=== PATIENT | male | born 1950 | race Caucasian/White ===

== ENCOUNTER 2017-01-10 12:34 | Inpatient (IN) | payer MEDICARE, OTHER ==
[2017-01-10] MEDS ORDERED: SODIUM CHLORIDE 0.9% 1,000 ML IV STA (13:16)
[2017-01-10 13:37] LABS: Basophils % (A) 1 %; CH 34.6; CHCM 34.4; Eosinophils % (A) 0 %; HCT 50.7 % (39.0-53.0); HDW 2.53; HGB 17.1 gm/dL (13.0-17.5); Luc # (Auto) 0.26; Luc % (Auto) 4; Lymphocytes # (A) 0.6 k/uL (1.0-4.8); Lymphocytes % (A) 8 %; MCH 34.1 pg (25.0-35.0); MCHC 33.7 g/dL (31.0-37.0); MCV 101.3 fL (80.0-100.0); Macrocytosis Slight; Mean Platelet Volume 8.6; Monocytes # (A) 0.5 k/uL (0-1.0); Monocytes % (A) 6 %; Neutrophils # (A) 6.1 k/uL (1.3-7.7); Neutrophils % (A) 82 %; RDW 13.7 % (11.5-15.5); WBC 7.5 k/uL (3.8-10.6); WBC (Perox) 7.75
[2017-01-10] MEDS: DILTIAZEM 125 MG in SODIUM CHLORIDE 0.9% 100 ML IV STA (13:43)
--- NOTE | 2017-01-10 13:43 | XR ---
EXAMINATION TYPE: XR chest 2V DATE OF EXAM: 01/10/2017 1:39 PM COMPARISON: NONE HISTORY: Shortness of breath TECHNIQUE: Frontal and lateral views of the chest are obtained. FINDINGS: Scattered senescent parenchymal changes noted. Hyperinflation compatible with COPD. No evidence for infiltrate. No evidence for atelectasis. Heart size is stable. Mediastinal structures are stable and grossly unremarkable. No evidence for hilar prominence. Degenerative changes dorsal spine. IMPRESSION: 1. No evidence for acute pulmonary disease.
[2017-01-10 13:44] LABS: INR 1.1 (<1.1); Partial Thromboplastin Time 26.7 sec (22.0-30.0); Prothrombin Time 10.7 sec (9.0-12.0)
[2017-01-10 13:48] LABS: ALT 28 U/L (21-72); AST 39 U/L (17-59); Alkaline Phosphatase 61 U/L (38-126); Anion Gap 12 mmol/L; Blood Urea Nitrogen 18 mg/dL (9-20); Calcium 9.6 mg/dL (8.4-10.2); Carbon Dioxide 23 mmol/L (22-30); Chloride 104 mmol/L (98-107); Glucose 88 mg/dL (74-99); Non-African American GFR(MDRD) >60 (>60 ml/min/1.73 sqM); Potassium 4.5 mmol/L (3.5-5.1); Sodium 139 mmol/L (137-145); Total Bilirubin 0.9 mg/dL (0.2-1.3); Total Protein 7.4 g/dL (6.3-8.2)
[2017-01-10 13:59] LABS: Creatine Kinase 174 U/L (55-170)
[2017-01-10 14:11] LABS: Creatine Kinase MB 3.3 ng/mL (0.0-2.4); Troponin I <0.012 ng/mL (0.000-0.034)
[2017-01-10] MEDS ORDERED: ENOXAPARIN 100 MG/ML SYRINGE SQ STA (15:46)
--- NOTE | 2017-01-10 17:08 | ED ---
Arrhythmia/Palpitations HPI - General Chief Complaint: Arrhythmia/Palpitations Stated Complaint: Cardiac symtoms Time Seen by Provider: 01/10/17 12:57 Source: patient Mode of arrival: EMS Limitations: no limitations - History of Present Illness Initial Comments: Patient was all set to see her cashier greeter today for some ophthalmic surgery , right before the surgery they noticed on the EKG the patient had atrial fibrillation now with the rapid ventricular rate and they postpone the surgery and Center for further evaluation to the ER patient denies any chest pain does complain about the pelvic palpitation denies any pleuritic chest pain no fever no chills no cough he is nauseous but not been any phlegm he denies any signs of TIA or CVA - Related Data Home Medications Medication Instructions Recorded Confirmed Albuterol Sulfate [Ventolin HFA] 2 puff INHALATION RT-Q6H PRN 01/10/17 01/10/17 Celecoxib [Celecoxib] 200 mg PO DAILY 01/10/17 01/10/17 Fluticasone Nasal [place] [Flonase 2 spr EA NOSTRIL DAILY PRN 01/10/17 01/10/17 Nasal [place]] Hydrocodone/Acetaminophen 1 tab PO TID PRN 01/10/17 01/10/17 [Hydrocodon-Acetaminophn 10-325] Levothyroxine Sodium [Synthroid] 25 mcg PO DAILY 01/10/17 01/10/17 Loratadine [Loratadine] 10 mg PO DAILY PRN 01/10/17 01/10/17 Spironolactone 50 mg PO DAILY 01/10/17 01/10/17 amLODIPine BESYLATE [Amlodipine 10 mg PO DAILY 01/10/17 01/10/17 Besylate] Allergies Allergy/AdvReac Type Severity Reaction Status Date / Time No Known Allergies Allergy Verified 01/10/17 12:56 Review of Systems ROS Statement: Those systems with pertinent positive or pertinent negative responses have been documented in the HPI. ROS Other: All systems not noted in ROS Statement are negative. Past Medical History Past Medical History: Hypertension, Thyroid Disorder Additional Past Medical History / Comment(s): hepatitis C History of Any Multi-Drug Resistant Organisms: MRSA Date of last positivie culture/infection: 2009 MDRO Source:: arm Past Surgical History: Orthopedic Surgery Past Psychological History: No Psychological Hx Reported Smoking Status: Current every day smoker Past Alcohol Use History: Daily Past Drug Use History: None Reported General Exam - General Exam Comments Initial Comments: General: The patient is awake and alert, in no distress, and does not appear acutely ill. Skin: Skin is warm and dry and no rashes or lesions are noted. Eye: Pupils are equal, round and reactive to light, extra-ocular movements are intact; there is normal conjunctiva bilaterally. Ears, nose, mouth and throat: There are moist mucous membranes and no oral lesions. Neck: The neck is supple, there is no tenderness or JVD. Cardiovascular: Noticed atrial fibrillation Respiratory: To auscultation bilateral, no wheezing no rhonchi no distress respiratory bach noticed Gastrointestinal: Soft, non-distended, non-tender abdomen without masses or organomegaly noted. There is no rebound or guarding present. Bowel sounds are unremarkable. Back: There is no tenderness to palpation in the midline. There is no obvious deformity. Musculoskeletal: Normal ROM, no tenderness, There is no pedal edema. There is no calf tenderness or swelling. No cords were appreciated. Neurological: CN II-XII intact, Cranial nerves III through XII are intact. There are no obvious motor or sensory deficits. Coordination appears grossly intact. Speech is normal. Psychiatric: Cooperative, appropriate mood & affect, normal judgment. Limitations: no limitations Course Vital Signs 01/10/17 01/10/17 01/10/17 12:51 13:50 14:29 Temperature 98 F Pulse Rate 114 H 126 H 108 H Respiratory 18 18 20 Rate Blood Pressure 148/74 126/75 119/84 O2 Sat by Pulse 98 97 96 Oximetry 01/10/17 01/10/17 01/10/17 15:13 15:54 16:46 Temperature 97.8 F Pulse Rate 103 H 93 98 Respiratory 16 16 16 Rate Blood Pressure 120/62 110/63 134/69 O2 Sat by Pulse 95 98 97 Oximetry EKG Findings - EKG Comments: EKG Findings:: EKG is a defibrillation with a ventricular rate of 160 [place] interval, QRS duration is 74 QT/QTc is 42/475 devious this EKG is shows a rapid ventricular response no ST elevation or ST depression noticed a couple areas of syncope cc Medical Decision Making - Lab Data Result diagrams: 01/10/17 12:53 01/10/17 12:53 Lab Results 01/10/17 01/10/17 01/10/17 Range/Units 12:53 12:53 12:53 WBC 7.5 (3.8-10.6) k/uL RBC 5.00 (4.30-5.90) m/uL Hgb 17.1 (13.0-17.5) gm/dL Hct 50.7 (39.0-53.0) % MCV 101.3 H (80.0-100.0) fL MCH 34.1 (25.0-35.0) pg MCHC 33.7 (31.0-37.0) g/dL RDW 13.7 (11.5-15.5) % Plt Count 146 L (150-450) k/uL Neutrophils % 82 % Lymphocytes % 8 % Monocytes % 6 % Eosinophils % 0 % Basophils % 1 % Neutrophils # 6.1 (1.3-7.7) k/uL Lymphocytes # 0.6 L (1.0-4.8) k/uL Monocytes # 0.5 (0-1.0) k/uL Eosinophils # 0.0 (0-0.7) k/uL Basophils # 0.0 (0-0.2) k/uL Macrocytosis Slight PT (9.0-12.0) sec INR (<1.1) APTT (22.0-30.0) sec Sodium 139 (137-145) mmol/L Potassium 4.5 (3.5-5.1) mmol/L Chloride 104 (98-107) mmol/L Carbon Dioxide 23 (22-30) mmol/L Anion Gap 12 mmol/L BUN 18 (9-20) mg/dL Creatinine 0.80 (0.66-1.25) mg/dL Est GFR (MDRD) Af Amer >60 (>60 ml/min/1.73 sqM) Est GFR (MDRD) Non-Af >60 (>60 ml/min/1.73 sqM) Glucose 88 (74-99) mg/dL Calcium 9.6 (8.4-10.2) mg/dL Magnesium 2.0 (1.6-2.3) mg/dL Total Bilirubin 0.9 (0.2-1.3) mg/dL AST 39 (17-59) U/L ALT 28 (21-72) U/L Alkaline Phosphatase 61 (38-126) U/L Total Creatine Kinase 174 H (55-170) U/L CK-MB (CK-2) 3.3 H* (0.0-2.4) ng/mL CK-MB (CK-2) Rel Index 1.9 Troponin I <0.012 (0.000-0.034) ng/mL Total Protein 7.4 (6.3-8.2) g/dL Albumin 4.3 (3.5-5.0) g/dL TSH 2.380 (0.465-4.680) mIU/L 01/10/17 Range/Units 12:53 WBC (3.8-10.6) k/uL RBC (4.30-5.90) m/uL Hgb (13.0-17.5) gm/dL Hct (39.0-53.0) % MCV (80.0-100.0) fL MCH (25.0-35.0) pg MCHC (31.0-37.0) g/dL RDW (11.5-15.5) % Plt Count (150-450) k/uL Neutrophils % % Lymphocytes % % Monocytes % % Eosinophils % % Basophils % % Neutrophils # (1.3-7.7) k/uL Lymphocytes # (1.0-4.8) k/uL Monocytes # (0-1.0) k/uL Eosinophils # (0-0.7) k/uL Basophils # (0-0.2) k/uL Macrocytosis PT 10.7 (9.0-12.0) sec INR 1.1 (<1.1) APTT 26.7 (22.0-30.0) sec Sodium (137-145) mmol/L Potassium (3.5-5.1) mmol/L Chloride (98-107) mmol/L Carbon Dioxide (22-30) mmol/L Anion Gap mmol/L BUN (9-20) mg/dL Creatinine (0.66-1.25) mg/dL Est GFR (MDRD) Af Amer (>60 ml/min/1.73 sqM) Est GFR (MDRD) Non-Af (>60 ml/min/1.73 sqM) Glucose (74-99) mg/dL Calcium (8.4-10.2) mg/dL Magnesium (1.6-2.3) mg/dL Total Bilirubin (0.2-1.3) mg/dL AST (17-59) U/L ALT (21-72) U/L Alkaline Phosphatase (38-126) U/L Total Creatine Kinase (55-170) U/L CK-MB (CK-2) (0.0-2.4) ng/mL CK-MB (CK-2) Rel Index Troponin I (0.000-0.034) ng/mL Total Protein (6.3-8.2) g/dL Albumin (3.5-5.0) g/dL TSH (0.465-4.680) mIU/L Disposition Clinical Impression: New onset atrial fibrillation Disposition: ADMITTED IP TO THIS HOSP
[2017-01-10] MEDS ORDERED: NITROGLYCERIN SL TABS 0.4 MG TAB SUBLINGUAL PRN (17:11)
[2017-01-10] MEDS ORDERED: MORPHINE SULFATE 2 MG/ML SYRINGE IVP PRN (17:11)
[2017-01-10] MEDS ORDERED: FLUTICASONE 50MCG/SPRAY NASAL 16GM EA NOSTRIL PRN (17:16)
[2017-01-10] MEDS ORDERED: LORATADINE 10 MG TAB PO PRN (17:16)
[2017-01-10] MEDS ORDERED: ALBUTEROL NEBULIZED 2.5 MG/3 ML INHALATION PRN (17:16)
[2017-01-10] MEDS ORDERED: METOPROLOL TARTRATE 50 MG TAB PO STA (17:17)
[2017-01-10] MEDS ORDERED: METOPROLOL TARTRATE 50 MG TAB PO ONE (17:45)
[2017-01-10 18:43] VITALS: RESP 16
[2017-01-10 19:32] LABS: Creatine Kinase 161 U/L (55-170)
[2017-01-10] MEDS ORDERED: TEMAZEPAM 15 MG CAP PO PRN (19:40)
[2017-01-10] MEDS ORDERED: LORazepam 0.5 MG TAB PO PRN (19:40)
[2017-01-10 19:45] LABS: Troponin I <0.012 ng/mL (0.000-0.034)
[2017-01-10] MEDS: HYDROcodone/APAP 10-325MG 1 EACH TAB PO PRN (19:51)
[2017-01-10 20:01] LABS: Creatine Kinase MB 2.5 ng/mL (0.0-2.4)
[2017-01-10 20:29] LABS: Appearance,Urine Clear (Clear); Bilirubin,Urine Negative (Negative); Glucose,Urine (UA) Negative (Negative); Ketones,Urine Negative (Negative); Leukocyte Esterase,Urine Negative (Negative); Mucus,Urine Rare /hpf; Nitrite,Urine Negative (Negative); Particle Count 1484; Protein,Urine Negative (Negative); RBC,Urine 7 /hpf (0-5); Specific Gravity,Urine 1.017 (1.001-1.035); Squamous Epithelial Cell,Urine <1 /hpf (0-4); UA Billing (MACRO vs. MICRO) MICRO; WBC,Urine 3 /hpf (0-5)
[2017-01-11 01:51] LABS: Creatine Kinase 199 U/L (55-170)
[2017-01-11 02:07] LABS: Troponin I <0.012 ng/mL (0.000-0.034)
[2017-01-11 02:10] LABS: Creatine Kinase MB 2.6 ng/mL (0.0-2.4)
[2017-01-11] MEDS: HYDROcodone/APAP 10-325MG 1 EACH TAB PO PRN (03:47)
[2017-01-11] MEDS ORDERED: LEVOTHYROXINE 25 MCG TAB PO SCH (06:30)
[2017-01-11 06:44] LABS: Basophils # (A) 0.1 k/uL (0-0.2); Basophils % (A) 1 %; CH 34.5; Eosinophils # (A) 0.1 k/uL (0-0.7); Eosinophils % (A) 1 %; HCT 45.5 % (39.0-53.0); HDW 2.49; Luc # (Auto) 0.19; Luc % (Auto) 3; Lymphocytes # (A) 0.9 k/uL (1.0-4.8); Lymphocytes % (A) 14 %; MCH 33.5 pg (25.0-35.0); MCHC 32.9 g/dL (31.0-37.0); MCV 101.8 fL (80.0-100.0); Macrocytosis Slight; Mean Platelet Volume 8.1; Monocytes # (A) 0.5 k/uL (0-1.0); Monocytes % (A) 8 %; Neutrophils # (A) 4.8 k/uL (1.3-7.7); Neutrophils % (A) 74 %; RBC 4.48 m/uL (4.30-5.90); RDW 13.9 % (11.5-15.5); WBC 6.6 k/uL (3.8-10.6); WBC (Perox) 6.37
[2017-01-11 07:01] LABS: Anion Gap 9 mmol/L; Blood Urea Nitrogen 26 mg/dL (9-20); Calcium 9.2 mg/dL (8.4-10.2); Carbon Dioxide 21 mmol/L (22-30); Chloride 106 mmol/L (98-107); Cholesterol 180 mg/dL (<200); Glucose 87 mg/dL (74-99); HDL Cholesterol 94 mg/dL (40-60); Non-African American GFR(MDRD) >60 (>60 ml/min/1.73 sqM); Potassium 4.5 mmol/L (3.5-5.1); Sodium 136 mmol/L (137-145); Triglycerides 77 mg/dL (<150)
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
[2017-01-11] MEDS ORDERED: METOPROLOL TARTRATE 50 MG TAB PO SCH (09:00)
[2017-01-11] MEDS ORDERED: ASPIRIN 325 MG TAB PO SCH (09:00)
[2017-01-11] MEDS ORDERED: SPIRONOLACTONE 25 MG TAB PO SCH (09:00)
[2017-01-11] MEDS ORDERED: ENOXAPARIN 100 MG/ML SYRINGE SQ SCH (09:00)
[2017-01-11] MEDS: DILTIAZEM 125 MG in SODIUM CHLORIDE 0.9% 100 ML IV STA (12:02)
--- NOTE | 2017-01-11 13:49 | ECHOF ---
Referral Reason:Rule out wall motion abnormality MEASUREMENTS -------- HEIGHT: 188.0 cm WEIGHT: 135.2 kg BP: 107/61 RVIDd: 3.5 cm (< 3.3) IVSd: 1.0 cm (0.6 - 1.1) LVIDd: 4.0 cm (3.9 - 5.3) LVPWd: 1.2 cm (0.6 - 1.1) IVSs: 2.1 cm LVIDs: 2.8 cm LVPWs: 1.9 cm LA Diam: 3.3 cm (2.7 - 3.8) LAESV Index (A-L): 15.39 ml/m Ao Diam: 3.5 cm (2.0 - 3.7) AV Cusp: 2.1 cm (1.5 - 2.6) LA Diam: 3.2 cm (2.7 - 3.8) MV EXCURSION: 15.249 mm (> 18.000) MV EF SLOPE: 111 mm/s (70 - 150) EPSS: 0.8 cm RAP: 5.00 mmHg RVSP: 21.84 mmHg FINDINGS -------- Atrial fibrillation. This was a technically difficult study with suboptimal views. The left ventricular size is normal. Left ventricular wall thickness is normal. Overall left ventricular systolic function is low-normal with, an EF between 50 - 55 %. The right ventricle is mildly enlarged. Normal LA size by volume 22+/-6 ml/m2. The right atrium was not well visualized. 1.5mg of Definity was utilized for enhancement of images The aortic valve was not well visualized. The mitral valve was not well visualized. Mild mitral regurgitation is present. The tricuspid valve was not well visualized. Mild tricuspid regurgitation present. Right ventricular systolic pressure is normal at < 35 mmHg. The pulmonic valve was not well visualized. The aortic root size is normal. The inferior vena cava is mildly dilated. There is no pericardial effusion. CONCLUSIONS -------- 1. Atrial fibrillation. 2. Mild mitral regurgitation is present. 3. Mild tricuspid regurgitation present. 4. Right ventricular systolic pressure is normal at < 35 mmHg. 5. The pulmonic valve was not well visualized. 6. The aortic root size is normal. 7. The inferior vena cava is mildly dilated. 8. There is no pericardial effusion. 9. This was a technically difficult study with suboptimal views. 10. Left ventricular wall thickness is normal. 11. Overall left ventricular systolic function is low-normal with, an EF between 50 - 55 %. 12. The right ventricle is mildly enlarged. 13. Normal LA size by volume 22+/-6 ml/m2. 14. The right atrium was not well visualized. 15. 1.5mg of Definity was utilized for enhancement of images 16. The aortic valve was not well visualized. STUDY MANAGER: Gumaro Peguero RDCS
[2017-01-11 15:34] VITALS: BP 124/86; PULSE 71; TEMP 97.1
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
--- NOTE | 2017-01-11 19:37 | CONS ---
DATE OF CONSULTATION: 66-year-old gentleman Admitted to the hospital by Dr. Garcia. Consultation requested by Dr. Garcia. Patient admitted to the hospital with atrial fibrillation with fast ventricular rates. HISTORY OF PRESENT ILLNESS: Mr. Isaiah Styles is a known patient of hypertension, and history of DJD, history of hypothyroidism, history of hepatitis C treated in 2010, has been doing well since that time. Patient was seen in the emergency room, the patient was seen by an power marketer for some ophthalmic surgery and found to have atrial fibrillation with fast ventricular rates, came here to the hospital. Patient is on Cardizem drip with uncontrolled ventricular rate and patient is on low anticoagulants now. Patient lives with his brother, apparently never been and no children. Patient's medications prior to admission include: 1. Spironolactone 50 mg p.o. daily. 2. Amlodipine 10 mg. 3. Loratadine 10 mg. 4. Synthroid 25 mcg p.o. daily. 5. Flonase p.r.n. 6. Hydrocodone p.r.n. 7. Celebrex 200 mg. 8. Ventolin HFA 2 puffs q.4-6h. FAMILY HISTORY: Myocardial infarction, cancer of the stomach, otherwise unremarkable. REVIEW OF SYSTEMS: Essentially unremarkable other than what is stated in the presenting illness. Patient's physical examination revealed well-developed, well-nourished, moderately obese gentleman with a pulse rate of 90 beats per minute and irregularly irregular, blood pressure of 140/70 mmHg. Respirations of 18. HEAD: Normocephalic. HEENT unremarkable. Neck is supple. No thyroid enlargement. Good carotid upstroke. CARDIAC EXAMINATION: Regular rate and rhythm. S1 and S2. Lungs are clear to auscultation and percussion. ABDOMEN: Soft, no organomegaly. Active bowel sounds. EXTREMITIES: No edema. No swelling in the legs. ASSESSMENT: 1. Atrial fibrillation with controlled ventricular rate. On ( ) on admission, controlled now. 2. History of hepatitis C treated in 2010. 3. History of cataracts. 4. History of hypertension. 5. History of Methicillin-resistant Staph aureus infection in the past. 6. History of bilateral cataracts. 7. Degenerative arthritis. 8. Nicotine dependence. The patient's echocardiogram shows well-preserved LV function, ejection fraction is around 50% to 55% and the patient's cholesterol is 180, HDL 94, LDL 71, triglycerides 77. Troponin x3 are negative. RECOMMENDATIONS: Concur with current therapy. Patient may go home on current medications along with normal anticoagulants. Follow-up with primary care physician, Dr. Wade and cardiology. Medications: Aspirin 81 mg p.o. daily, metoprolol changed to 100 mg p.o. b.i.d. and spironolactone 50 mg p.o. daily, ( ) anticoagulant and follow with Dr. Wade and cardiology.
== END 2017-01-11 19:50 | disposition home or self-care (01) | DRG 310 ==
LOC: EC 12:34 → 6SEL 17:11
PROVIDERS: ADMIT Internal Medicine; ATTEND Internal Medicine
DX: I48.91 Unspecified atrial fibrillation (principal); D69.6 Thrombocytopenia, unspecified; I95.2 Hypotension due to drugs; B19.20 Unspecified viral hepatitis C without hepatic coma; T46.1X5A Adverse effect of calcium-channel blockers, initial encounter; I10 Essential (primary) hypertension; R74.8 Abnormal levels of other serum enzymes; T44.7X6A Underdosing of beta-adrenoreceptor antagonists, initial encounter; R60.0 Localized edema; M48.06 Spinal stenosis, lumbar region; E03.9 Hypothyroidism, unspecified; E78.5 Hyperlipidemia, unspecified; F17.200 Nicotine dependence, unspecified, uncomplicated; G89.29 Other chronic pain; E66.9 Obesity, unspecified; H26.9 Unspecified cataract; M19.90 Unspecified osteoarthritis, unspecified site; Z79.1 Long term (current) use of non-steroidal anti-inflammatories (NSAID); Z79.891 Long term (current) use of opiate analgesic; Z79.51 Long term (current) use of inhaled steroids; Z86.14 Personal history of Methicillin resistant Staphylococcus aureus infection; Z80.0 Family history of malignant neoplasm of digestive organs; Z82.49 Family history of ischemic heart disease and other diseases of the circulatory system; Z68.38 Body mass index [BMI] 38.0-38.9, adult; Z87.828 Personal history of other (healed) physical injury and trauma; Z91.81 History of falling; Z79.899 Other long term (current) drug therapy
CPT/HCPCS: 36415; 71020; 80048; 80053; 80061; 80306; 81001; 82550; 82553; 83735; 84443; 84484; 85025; 85610; 85730; 93005; 93306; 94760; 96365; 96366; 96372; 99285

== ENCOUNTER 2018-08-03 20:57 | Inpatient (IN) | payer OTHER ==
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
[2018-08-03 22:19] LABS: Anisocytosis Slight; Basophils % (A) 1 %; Eosinophils # (A) 0.2 k/uL (0-0.7); Eosinophils % (A) 3 %; HCT 36.6 % (39.0-53.0); HGB 11.5 gm/dL (13.0-17.5); Hypochromasia Slight; Lymphocytes % (A) 17 %; MCHC 31.5 g/dL (31.0-37.0); MCV 95.1 fL (80.0-100.0); Macrocytosis Slight; Mean Platelet Volume 6.7; Monocytes # (A) 0.4 k/uL (0-1.0); Monocytes % (A) 8 %; Neutrophils # (A) 3.9 k/uL (1.3-7.7); Neutrophils % (A) 69 %; Platelet Count 220 k/uL (150-450); RBC 3.84 m/uL (4.30-5.90); RDW 18.6 % (11.5-15.5); WBC 5.7 k/uL (3.8-10.6)
--- NOTE | 2018-08-03 22:30 | XR ---
EXAMINATION TYPE: XR chest 2V DATE OF EXAM: 08/03/2018 COMPARISON: 01/10/2017 HISTORY: Short of breath TECHNIQUE: Frontal and lateral views of the chest are obtained. FINDINGS: There is no heart failure nor confluent pneumonic infiltrate. Costophrenic angles are reji r. Bony thorax appears intact. Heart and mediastinum appear normal. IMPRESSION: Normal chest. No change.
[2018-08-03 22:31] LABS: Partial Thromboplastin Time 26.9 sec (22.0-30.0)
[2018-08-03 22:37] LABS: Albumin 4.1 g/dL (3.5-5.0); Calcium 8.7 mg/dL (8.4-10.2); Magnesium 2.1 mg/dL (1.6-2.3); Potassium 4.8 mmol/L (3.5-5.1); Total Bilirubin 0.6 mg/dL (0.2-1.3); Total Protein 7.7 g/dL (6.3-8.2)
[2018-08-03] MEDS ORDERED: THIAMINE 100 MG/ML 2 ML VIAL IM STA (23:54)
[2018-08-03] MEDS ORDERED: LORazepam 2 MG/ML INJ IV PRN (23:54)
[2018-08-04] MEDS ORDERED: ACETAMINOPHEN TAB 325 MG TAB PO PRN ×2 (00:23→01:38)
[2018-08-04] MEDS ORDERED: DOCUSATE 100 MG CAP PO PRN (00:23)
[2018-08-04] MEDS ORDERED: NITROGLYCERIN SL TABS 0.4 MG TAB SUBLINGUAL PRN ×2 (00:23→01:48)
[2018-08-04] MEDS ORDERED: busPIRone HCl 10 MG TAB PO SCH (00:30)
[2018-08-04 00:51] LABS: Appearance,Urine Clear (Clear); Bilirubin,Urine Negative (Negative); Blood,Urine Negative (Negative); Color,Urine Yellow; Glucose,Urine (UA) Negative (Negative); Ketones,Urine Negative (Negative); Leukocyte Esterase,Urine Negative (Negative); Nitrite,Urine Negative (Negative); PH, Urine 5.5 (5.0-8.0); Protein,Urine Negative (Negative); Specific Gravity,Urine 1.009 (1.001-1.035); Urobilinogen,Urine <2.0 mg/dL (<2.0)
[2018-08-04] MEDS ORDERED: AMIODARONE 200 MG TAB PO SCH (07:30)
[2018-08-04] MEDS ORDERED: MULTIVITAMINS, THERA 1 EACH TAB PO SCH (07:30)
[2018-08-04] MEDS ORDERED: MAGNESIUM OXIDE 400 MG TAB PO SCH (07:30)
[2018-08-04] MEDS: busPIRone HCl 10 MG TAB PO SCH ×2 (08:04→22:45)
[2018-08-04] MEDS: FOLIC ACID 1 MG TAB PO SCH (08:04)
[2018-08-04] MEDS: POTASSIUM CHLORIDE ER 20 MEQ TAB.ER PO SCH (08:04)
[2018-08-04] MEDS: MAGNESIUM OXIDE 400 MG TAB PO SCH (08:04)
[2018-08-04] MEDS: PANTOPRAZOLE 40 MG TABLET PO SCH (08:04)
[2018-08-04] MEDS: MULTIVITAMINS, THERA 1 EACH TAB PO SCH (08:05)
[2018-08-04] MEDS: FUROSEMIDE 10 MG/ML 2 ML VIAL IV SCH ×2 (08:06→22:45)
[2018-08-04] MEDS: METOPROLOL TARTRATE 25 MG TAB PO SCH ×2 (08:16→22:51)
[2018-08-04] MEDS: AMIODARONE 200 MG TAB PO SCH (08:17)
[2018-08-04] MEDS: LORazepam 2 MG/ML INJ IV PRN ×3 (08:23→16:47)
[2018-08-04] MEDS ORDERED: SODIUM CHLORIDE 0.9% 500 ML 500 ML IV ONE (08:38)
[2018-08-04] MEDS ORDERED: SODIUM CHLORIDE 0.9% 1,000 ML IV SCH (08:45)
[2018-08-04] MEDS ORDERED: APIXABAN 5 MG TAB PO SCH (09:00)
[2018-08-04] MEDS ORDERED: CYANOCOBALAMIN 500 MCG TAB PO SCH (09:00)
[2018-08-04] MEDS ORDERED: POTASSIUM CHLORIDE ER 20 MEQ TAB.ER PO SCH (09:00)
[2018-08-04] MEDS ORDERED: METOPROLOL TARTRATE 25 MG TAB PO SCH (09:00)
[2018-08-04] MEDS ORDERED: PANTOPRAZOLE 40 MG TABLET PO SCH (09:00)
[2018-08-04] MEDS ORDERED: CHOLECALCIFEROL 1,000 UNIT TAB PO SCH (09:00)
[2018-08-04] MEDS ORDERED: THIAMINE 100 MG TAB PO SCH (12:00)
[2018-08-04] MEDS ORDERED: FUROSEMIDE 10 MG/ML 4 ML VIAL IV STA (15:04)
[2018-08-04] MEDS: CHOLECALCIFEROL 1,000 UNIT TAB PO SCH (16:47)
--- NOTE | 2018-08-04 17:01 | HP ---
HISTORY AND PHYSICAL DATE OF SERVICE: 08/04/2018 CHIEF COMPLAINTS: Alcohol withdrawal, cellulitis. HISTORY OF PRESENT ILLNESS: This 68-year-old gentleman with a past medical history of multiple medical problems including atrial fibrillation, history of DJD, hypothyroidism, history of tonsillectomy, being followed by Dr. Wade in the [facility], was drinking heavily according to him. The patient has some withdrawal symptoms. Patient also had bilateral leg cellulitis and leg swelling also. Because of multiple symptomatology, patient came to [facility] and was admitted for further evaluation and treatment. The leg was much more swollen. There is no history of fever, rigors or chills. No history of headache, loss of consciousness, seizures. PAST MEDICAL HISTORY: History of atrial fibrillation, history of hypertension, DJD, hypothyroidism, history MEDICATIONS: Prior to admission include home medications are: 1. Prilosec 20 mg b.i.d. 2. Nitrostat 0.4 mg sublingual p.r.n. 3. Multivitamins 1 daily. 4. Atenolol 25 mg p.o. b.i.d. 5. Magnesium oxide 250 mg with breakfast. 6. Lasix 40 mg p.o. b.i.d. 7. Vitamin B12 1000 mg p.o. daily. 8. Hydrocodone 1 tablet p.o. b.i.d. 9. Buspar 10 mg q8. 10.Folic acid 1 mg p.o. daily. 11.Colace 100 mg daily p.r.n. 12.Pacerone 200 mg with breakfast. 13.Vitamin D3 2000 daily. 14.Tylenol 650 q.6h p.r.n. 15.Xarelto 20 mg with supper. 16.K-Dur 10 mEq p.o. b.i.d. ALLERGIES: None. FAMILY HISTORY: History of myocardial infarction and stomach cancer in the family. SOCIAL HISTORY: History of smoking. History of alcohol, up to a 5th of alcohol. REVIEW OF SYSTEMS: ENT: No diminished vision. No diminished hearing. Cardiovascular: No angina or palpitations. RESPIRATION: As mentioned earlier. GASTROINTESTINAL: As mentioned earlier. : No dysuria. NERVOUS SYSTEM: No numbness or weakness. ALLERGY/IMMUNOLOGY: No asthma or hayfever. MUSCULOSKELETAL: As mentioned earlier. HEMATOLOGY/ONCOLOGY: No history of anemia. ENDOCRINE: As mentioned earlier. CONSTITUTIONAL: As mentioned earlier. DERMATOLOGY: Negative. RHEUMATOLOGY: Negative. PSYCHIATRY: As mentioned earlier. PHYSICAL EXAM: GENERAL: Alert and oriented times three. VITAL SIGNS: Pulse is 86, blood pressure 142/87, respiration 18, temperature 98.2, pulse ox 94% on room air. HEENT: Conjunctivae normal. Oral mucosa moist. NECK is no jugular venous distention. No carotid bruit. No lymph node enlargement. CARDIOVASCULAR SYSTEM: S1, S2 muffled. RESPIRATORY: Breath sounds diminished in the bases. Bilateral scattered rhonchi and crackles. ABDOMEN: Soft, obese, nontender. No mass palpable. LEGS: Bilateral leg edema and swelling. NERVOUS SYSTEM: Higher functions as mentioned earlier. Moves all 4 limbs. No focal motor or sensory deficits. LYMPHATICS: No lymph nodes palpable in the neck, axillae or groin. SKIN: No ulcer, rash or bleeding. LAB STUDIES: WBC 5, hemoglobin 11.5. CBC within normal limits. Alcohol at 362. ASSESSMENT: 1. Acute alcohol intoxication, alcohol withdrawal symptoms and early delirium tremens. 2. Bilateral leg cellulitis and leg edema. 3. History of continued ongoing nicotine dependence. 4. History of atrial fibrillation. 5. Hypertension. 6. History of degenerative joint disease. 7. Hypothyroidism. 8. History of hepatitis C treated with interferon and ribavirin for 58 weeks. 9. History of cataracts. 10.History of liver cirrhosis. 11.FULL CODE. RECOMMENDATIONS AND DISCUSSION: This 68-year-old gentleman who presented with multiple complex medical issues, at this time, I recommend to continue current medications, management of alcohol withdrawal symptoms, CIWA protocol. Empiric antibiotics and local treatment. Resume the home medications. Monitor closely. Prognosis guarded because of multiple complex medical issues. Outpatient substance abuse rehab program. Further recommendations to follow. Copy of this dictation being forwarded to Dr. Wade who is the primary care physician. MMODL / IJN: [id number] / [place]
[2018-08-04] MEDS: ceFAZolin IN SWFI 2 GM/20 ML SYRINGE IVP SCH (17:08)
[2018-08-04] MEDS: RIVAROXABAN 20 MG TAB PO SCH (17:09)
[2018-08-04] MEDS ORDERED: RIVAROXABAN 20 MG TAB PO SCH (17:30)
[2018-08-04] MEDS: HYDROcodone/APAP 10-325MG 1 EACH TAB PO SCH (22:45)
[2018-08-05] MEDS: ceFAZolin IN SWFI 2 GM/20 ML SYRINGE IVP SCH ×4 (00:18→23:57)
[2018-08-05 07:54] LABS: Anion Gap 7 mmol/L; Blood Urea Nitrogen 13 mg/dL (9-20); Calcium 8.3 mg/dL (8.4-10.2); Carbon Dioxide 28 mmol/L (22-30); Chloride 102 mmol/L (98-107); Glucose 79 mg/dL (74-99); Potassium 3.5 mmol/L (3.5-5.1); Sodium 137 mmol/L (137-145)
[2018-08-05 08:04] LABS: Anisocytosis Slight; Basophils % (A) 1 %; Eosinophils # (A) 0.1 k/uL (0-0.7); Eosinophils % (A) 2 %; HCT 30.4 % (39.0-53.0); Hypochromasia Slight; Lymphocytes # (A) 0.6 k/uL (1.0-4.8); Lymphocytes % (A) 14 %; MCH 31.4 pg (25.0-35.0); MCHC 32.9 g/dL (31.0-37.0); MCV 95.3 fL (80.0-100.0); Macrocytosis Slight; Mean Platelet Volume 7.3; Monocytes # (A) 0.3 k/uL (0-1.0); Monocytes % (A) 7 %; Neutrophils # (A) 3.5 k/uL (1.3-7.7); Neutrophils % (A) 75 %; Platelet Count 129 k/uL (150-450); RBC 3.19 m/uL (4.30-5.90); WBC 4.7 k/uL (3.8-10.6)
[2018-08-05] MEDS ORDERED: FOLIC ACID 1 MG TAB PO SCH (09:00)
[2018-08-05] MEDS: HYDROcodone/APAP 10-325MG 1 EACH TAB PO SCH ×2 (10:30→22:07)
[2018-08-05] MEDS: DOCUSATE 100 MG CAP PO PRN (10:30)
[2018-08-05] MEDS: MAGNESIUM OXIDE 400 MG TAB PO SCH (10:31)
[2018-08-05] MEDS: FOLIC ACID 1 MG TAB PO SCH (10:31)
[2018-08-05] MEDS: MULTIVITAMINS, THERA 1 EACH TAB PO SCH (10:32)
[2018-08-05] MEDS: PANTOPRAZOLE 40 MG TABLET PO SCH (10:32)
[2018-08-05] MEDS: METOPROLOL TARTRATE 25 MG TAB PO SCH ×2 (10:32→22:07)
[2018-08-05] MEDS: CHOLECALCIFEROL 1,000 UNIT TAB PO SCH (10:32)
[2018-08-05] MEDS: POTASSIUM CHLORIDE ER 20 MEQ TAB.ER PO SCH (10:34)
[2018-08-05] MEDS: AMIODARONE 200 MG TAB PO SCH (10:34)
[2018-08-05] MEDS: LORazepam 2 MG/ML INJ IV PRN ×3 (10:48→20:53)
[2018-08-05] MEDS: FUROSEMIDE 10 MG/ML 2 ML VIAL IV SCH ×2 (10:48→22:08)
--- NOTE | 2018-08-05 15:35 | PN ---
PROGRESS NOTE DATE OF SERVICE: 08/05/2018 This 68-year-old gentleman who was admitted with alcohol intoxication also had delirium tremens. Patient also has bilateral leg cellulitis. No chest pain. No palpitations. No fever. Patient is on IV Cefazolin at this time. EXAM: Alert and oriented x2. Pulse is 97, blood pressure 133/60. Respirations 18. Temperature 98.7, pulse ox 97% on room air. HEENT: Conjunctivae normal. Neck: No jugular venous distention. Cardiovascular: S1, S2 muffled. Respirations: Breath sounds diminished in the bases. A few scattered rhonchi and crackles. Abdomen is soft, obese, nontender. LEGS: Bilateral leg cellulitis. Central nervous system: No focal deficits. LABS: WBC 4.2, hemoglobin is 10, platelets are 129. ASSESSMENT: 1. Acute alcohol intoxication, alcohol withdrawal symptoms and early delirium tremens. 2. Bilateral leg cellulitis and leg edema. 3. Continued ongoing nicotine dependence. 4. History of atrial fibrillation. 5. Hypertension. 6. History of degenerative joint disease. 7. Hypothyroidism. 8. History of hepatitis C treated with interferon and ribavirin for 58 weeks. 9. History of cataracts. 10.History of liver cirrhosis. 11.FULL CODE. RECOMMENDATIONS AND DISCUSSION: Recommend to continue current medications, management. Symptomatic treatment. Otherwise, DVT precautions. Continue to monitor and [employer] social [employer] teacher consultation for outpatient rehab. Prognosis guarded. Further recommendations to follow. MMODL / IJN: [id number] /
[2018-08-05] MEDS: RIVAROXABAN 20 MG TAB PO SCH (17:52)
[2018-08-05] MEDS: busPIRone HCl 10 MG TAB PO SCH (22:07)
[2018-08-06 08:34] LABS: Anisocytosis Slight; Basophils % (A) 1 %; Eosinophils # (A) 0.1 k/uL (0-0.7); Eosinophils % (A) 3 %; HGB 9.4 gm/dL (13.0-17.5); Lymphocytes # (A) 0.6 k/uL (1.0-4.8); Lymphocytes % (A) 12 %; MCH 29.7 pg (25.0-35.0); MCHC 31.3 g/dL (31.0-37.0); MCV 94.8 fL (80.0-100.0); Macrocytosis Slight; Mean Platelet Volume 7.3; Monocytes # (A) 0.3 k/uL (0-1.0); Monocytes % (A) 7 %; Neutrophils # (A) 3.7 k/uL (1.3-7.7); Neutrophils % (A) 76 %; Platelet Count 114 k/uL (150-450); RBC 3.16 m/uL (4.30-5.90); RDW 18.8 % (11.5-15.5); WBC 4.9 k/uL (3.8-10.6)
[2018-08-06 08:39] LABS: Anion Gap 3 mmol/L; Blood Urea Nitrogen 12 mg/dL (9-20); Calcium 8.4 mg/dL (8.4-10.2); Carbon Dioxide 33 mmol/L (22-30); Chloride 100 mmol/L (98-107); Glucose 78 mg/dL (74-99); Potassium 3.6 mmol/L (3.5-5.1); Sodium 136 mmol/L (137-145)
[2018-08-06] MEDS: ceFAZolin IN SWFI 2 GM/20 ML SYRINGE IVP SCH ×3 (08:40→20:00)
[2018-08-06] MEDS: DOCUSATE 100 MG CAP PO PRN (08:49)
[2018-08-06] MEDS: busPIRone HCl 10 MG TAB PO SCH ×2 (08:49→21:52)
[2018-08-06] MEDS: CHOLECALCIFEROL 1,000 UNIT TAB PO SCH (08:49)
[2018-08-06] MEDS: FOLIC ACID 1 MG TAB PO SCH (08:49)
[2018-08-06] MEDS: MAGNESIUM OXIDE 400 MG TAB PO SCH (08:50)
[2018-08-06] MEDS: HYDROcodone/APAP 10-325MG 1 EACH TAB PO SCH ×2 (08:50→21:52)
[2018-08-06] MEDS: POTASSIUM CHLORIDE ER 20 MEQ TAB.ER PO SCH (08:50)
[2018-08-06] MEDS: AMIODARONE 200 MG TAB PO SCH (08:51)
[2018-08-06] MEDS: METOPROLOL TARTRATE 25 MG TAB PO SCH ×2 (08:51→21:52)
[2018-08-06] MEDS: PANTOPRAZOLE 40 MG TABLET PO SCH (08:52)
[2018-08-06] MEDS: FUROSEMIDE 10 MG/ML 2 ML VIAL IV SCH ×2 (08:52→21:52)
[2018-08-06] MEDS: MULTIVITAMINS, THERA 1 EACH TAB PO SCH (08:59)
[2018-08-06] MEDS ORDERED: DEXTROSE 5% IN WATER 1,000 ML IV ONE (13:17)
[2018-08-06] MEDS: LORazepam 2 MG/ML INJ IV PRN ×2 (15:09→20:13)
[2018-08-06] MEDS: RIVAROXABAN 20 MG TAB PO SCH (16:14)
--- NOTE | 2018-08-06 20:51 | PN ---
PROGRESS NOTE DATE OF SERVICE: 08/06/2018 This 68-year-old gentleman was admitted with acute alcohol intoxication, also had bilateral leg edema and cellulitis also. The patient has been closely monitored. No chest pain. No palpitations. No fever. EXAM: Alert and oriented x3. Pulse 88, blood pressure 120/61, respiration 18, temperature is 97.8, pulse ox 90 percent on room air. HEENT: Conjunctivae normal. NECK: No jugular venous distention. CARDIOVASCULAR: S1, S2. RESPIRATORY: Breath sounds diminished in the bases. A few scattered rhonchi and crackles. ABDOMEN: Soft. LEGS: Bilateral leg cellulitis. NERVOUS SYSTEM: No focal deficits. LABS: WBC 4.2, hemoglobin 9.4. The sodium is 136. ASSESSMENT: 1. Acute alcohol intoxication with alcohol withdrawal symptoms and early delirium tremens. 2. History of bilateral leg cellulitis and leg edema. 3. Continued ongoing nicotine dependence. 4. History of atrial fibrillation. 5. Hypertension. 6. History of degenerative joint disease. 7. Hypothyroidism. 8. History of hep C treated with interferon for about 58 weeks. 9. History of cataracts. 10.History of liver cirrhosis. 11.FULL CODE. RECOMMENDATIONS AND DISCUSSION: I recommend to continue the current medications and symptomatic treatment. Continue with Lasix. Continue the rest of medications and antibiotics. [employer] Att[employer] and [employer] Supervisor to evaluate the home situation. Prognosis guarded. Further recommendations to follow. WIN / PREMAN: [id number] /
[2018-08-07] MEDS: DEXTROSE 5% IN WATER 1,000 ML with SODIUM BICARB (1 MEQ/ML) 50 ML IV SCH ×2 (00:15→14:47)
[2018-08-07] MEDS: ceFAZolin IN SWFI 2 GM/20 ML SYRINGE IVP SCH ×4 (00:15→23:34)
[2018-08-07] MEDS: LORazepam 2 MG/ML INJ IV PRN (05:51)
[2018-08-07] MEDS: DOCUSATE 100 MG CAP PO PRN (08:57)
[2018-08-07] MEDS: FUROSEMIDE 10 MG/ML 2 ML VIAL IV SCH ×2 (08:57→20:33)
[2018-08-07] MEDS: MAGNESIUM OXIDE 400 MG TAB PO SCH (08:57)
[2018-08-07] MEDS: busPIRone HCl 10 MG TAB PO SCH ×2 (08:57→20:33)
[2018-08-07] MEDS: AMIODARONE 200 MG TAB PO SCH (08:57)
[2018-08-07] MEDS: METOPROLOL TARTRATE 25 MG TAB PO SCH ×2 (08:57→20:33)
[2018-08-07] MEDS: POTASSIUM CHLORIDE ER 20 MEQ TAB.ER PO SCH (08:57)
[2018-08-07] MEDS: PANTOPRAZOLE 40 MG TABLET PO SCH (08:57)
[2018-08-07] MEDS: HYDROcodone/APAP 10-325MG 1 EACH TAB PO SCH ×2 (09:00→20:33)
[2018-08-07 09:29] LABS: Anisocytosis Slight; Basophils % (A) 1 %; Eosinophils # (A) 0.2 k/uL (0-0.7); Eosinophils % (A) 3 %; HCT 33.2 % (39.0-53.0); HGB 10.4 gm/dL (13.0-17.5); Lymphocytes # (A) 0.7 k/uL (1.0-4.8); Lymphocytes % (A) 13 %; MCHC 31.5 g/dL (31.0-37.0); MCV 95.5 fL (80.0-100.0); Macrocytosis Slight; Mean Platelet Volume 7.6; Monocytes # (A) 0.3 k/uL (0-1.0); Monocytes % (A) 6 %; Neutrophils % (A) 74 %; Platelet Count 115 k/uL (150-450); RBC 3.47 m/uL (4.30-5.90); RDW 18.5 % (11.5-15.5); WBC 5.4 k/uL (3.8-10.6)
[2018-08-07 09:57] LABS: Anion Gap 5 mmol/L; Blood Urea Nitrogen 12 mg/dL (9-20); Calcium 8.8 mg/dL (8.4-10.2); Carbon Dioxide 30 mmol/L (22-30); Chloride 100 mmol/L (98-107); Glucose 84 mg/dL (74-99); Potassium 3.5 mmol/L (3.5-5.1); Sodium 135 mmol/L (137-145)
[2018-08-07] MEDS: FOLIC ACID 1 MG TAB PO SCH ×2 (13:47→13:48)
[2018-08-07] MEDS: CHOLECALCIFEROL 1,000 UNIT TAB PO SCH (13:47)
[2018-08-07] MEDS: MULTIVITAMINS, THERA 1 EACH TAB PO SCH (13:48)
--- NOTE | 2018-08-07 14:22 | CDI ---
Last Revision, September 2017 Documentation Clarification Form Date: 08/07/2018 2:14:45 PM From: Miguelina Zuñiga RN, CCDS Admit Date: 08/03/2018 11:54:00 PM Patient Name: Isaiah Styles Visit Number: [id number] ATTENTION: The Clinical Documentation Specialists (CDI) and [facility] Coding Staff appreciate your assistance in clarifying documentation. Please respond to the clarification below the line at the bottom and electronically sign. The CDI & [facility] Coding staff will review the response and follow-up if needed. Please note: Queries are made part of the Legal Health Record. If you have any questions, please contact the author of this message via ITS. Camryn Ward MD Atrial fibrillation is documented in the H&P and Progress Notes and requires further specicifcitiy. History/Risk Factors: Atrial Fib, ETOH, Smoker Clinical Indicators: H&P and Progress Notes: Hx of atrial fib..." EKG/telemetry: sinus bradycardia to NSR Treatment: Consults: none Po Cordarone 200 mg PO QD Lopressor 25 mg PO BID In your professional opinion, can you please clarify the type of atrial fibrillation, if known? Chronic/Permanent Paroxysmal Persistent Other, please specify Unable to determine Please continue to document in your progress notes and discharge summary in order to capture severity of illness and risk of mortality. Include clinical findings that support your diagnosis. MTDD
--- NOTE | 2018-08-07 14:30 | CDI ---
Last Revision, September 2017 Documentation Clarification Form Date: 08/07/2018 2:23:20 PM From: Miguelina Zuñiga RN ,CCDS Admit Date: 08/03/2018 11:54:00 PM Patient Name: Isaiah Styles Visit Number: [id number] ATTENTION: The Clinical Documentation Specialists (CDI) and [facility] Coding Staff appreciate your assistance in clarifying documentation. Please respond to the clarification below the line at the bottom and electronically sign. The CDI & [facility] Coding staff will review the response and follow-up if needed. Please note: Queries are made part of the Legal Health Record. If you have any questions, please contact the author of this message via ITS. Dr. Tony Galvan low hemoglobin and hematocrit have been noted and lacks specificity to accurately reflect your patients severity of condition and clarification is needed. History/Risk Factors: "No hx of Anemia", atrial fib, hypothyroid, ETOH daily Clinical indicators: Hemoglobin: 11.5/10/9.4/10.4 Hematocrit:36.6/30.4/30/33.2 Treatment: Labs Am daily Eliquis 10 mg po BID Xarelto 20 mg PO AC Supper Vitamin B-1 PO BID Theragan 1 tab PO QD Folic Acid 1 mg po QD In order to capture the severity of condition, please clarify the significance of the above noted abnormal labs and etiology if known: Acute blood loss anemia Iron deficiency anemia Drug induced anemia Nutritional anemia Anemia of chronic disease Unable to determine Other, please specify Please continue to document in your progress notes and discharge summary in order to capture severity of illness and risk of mortality. Include clinical findings that support your diagnosis. Unable to determine MTDD
--- NOTE | 2018-08-07 14:42 | CDI ---
Last Revision, September 2017 Documentation Clarification Form Date: 08/07/2018 2:31:43 PM From: Miguelina Zuñiga Admit Date: 08/03/2018 11:54:00 PM Patient Name: Isaiah Styles Visit Number: [id number] ATTENTION: The Clinical Documentation Specialists (CDI) and [facility] Coding Staff appreciate your assistance in clarifying documentation. Please respond to the clarification below the line at the bottom and electronically sign. The CDI & [facility] Coding staff will review the response and follow-up if needed. Please note: Queries are made part of the Legal Health Record. If you have any questions, please contact the author of this message via ITS. Con Flynn MD History/Risk Factors: ETOH, Cellulitis, hypothyroid, Clinical Indicators: VS/Pulse OX: temp 98, HR 75, RR 18, B/P 131/71, spo2 97% RA H&P and Progress Notes: "Bilateral leg cellulitis and leg edema." BNP: 187 01/11/17 Echocardiogram Results: EF 50-55% Chest X Ray: normal Treatment: Lasix 40 mg ivp x1 followed by 20 mg IVP Q 12 hrs In your professional opinion, can you please clarify the acuity and type of CHF if known? Systolic Heart Failure: Acute Chronic Acute on Chronic Diastolic Heart Failure: Acute Chronic Acute on Chronic Systolic & Diastolic Heart Failure: Acute Chronic Acute on Chronic Heart Failure Unable to Determine Other, please specify Please continue to document in your progress notes and discharge summary in order to capture severity of illness and risk of mortality. Include clinical findings that support your diagnosis. MTDD
[2018-08-07] MEDS: RIVAROXABAN 20 MG TAB PO SCH (17:05)
--- NOTE | 2018-08-07 20:34 | PN ---
PROGRESS NOTE DATE OF SERVICE: 08/07/2018 This 68-year-old gentleman admitted with acute alcohol intoxication also had bilateral leg edema. Patient being closely monitored. No chest pain. No palpitations. No fever. The patient also had gait dysfunction. ECF rehab is being planned at this time. No chest pain. No palpitations. No fever. EXAM: Alert and oriented x3. Pulse 63, blood pressure 190/62, respirations 16, temperature 98.2, pulse ox 94% on room air. HEENT: Conjunctivae normal. Oral mucosa moist. Neck is no jugular venous distention. No carotid bruit. No lymph node enlargement. CARDIOVASCULAR: S1, S2. RESPIRATORY: Breath sounds diminished in the bases. Bilateral scattered rhonchi and crackles. ABDOMEN: Soft, obese, nontender. LEGS: Bilateral leg edema and cellulitis. NERVOUS SYSTEM: No focal deficits. LABS: Hemoglobin 10.4, sodium 135. ASSESSMENT: 1. Acute alcohol intoxication with alcohol withdrawal symptoms and early delirium tremens. 2. History of bilateral leg cellulitis and leg edema. 3. Continued ongoing nicotine dependence. 4. History atrial fibrillation paroxysmal. 5. Hypertension. 6. History of degenerative joint disease. 7. Hypothyroidism. 8. History of hep C treated with interferon for 58 weeks. 9. History of cataracts. 10.History of liver cirrhosis, but evidence of congestive heart failure. 11.FULL CODE. RECOMMENDATIONS AND DISCUSSION I recommend to continue current management and symptomatic treatment. Otherwise at this time, see orders for details. PT, OT evaluation. Possible ECF rehab. Guarded prognosis. Further recommendations recommendations to follow. MMODL / IJN: [id number] /
[2018-08-08] MEDS: DEXTROSE 5% IN WATER 1,000 ML with SODIUM BICARB (1 MEQ/ML) 50 ML IV SCH (03:57)
[2018-08-08 07:47] LABS: Anisocytosis Slight; Basophils % (A) 1 %; Eosinophils # (A) 0.2 k/uL (0-0.7); Eosinophils % (A) 2 %; HCT 33.1 % (39.0-53.0); HGB 10.8 gm/dL (13.0-17.5); Hypochromasia Slight; Lymphocytes # (A) 0.8 k/uL (1.0-4.8); Lymphocytes % (A) 14 %; MCH 31.4 pg (25.0-35.0); MCHC 32.6 g/dL (31.0-37.0); MCV 96.4 fL (80.0-100.0); Macrocytosis Slight; Mean Platelet Volume 7.3; Monocytes # (A) 0.4 k/uL (0-1.0); Monocytes % (A) 7 %; Neutrophils # (A) 4.5 k/uL (1.3-7.7); Neutrophils % (A) 73 %; Platelet Count 118 k/uL (150-450); RBC 3.43 m/uL (4.30-5.90); RDW 18.5 % (11.5-15.5); WBC 6.2 k/uL (3.8-10.6)
[2018-08-08 07:59] LABS: Anion Gap 5 mmol/L; Blood Urea Nitrogen 10 mg/dL (9-20); Calcium 8.9 mg/dL (8.4-10.2); Carbon Dioxide 30 mmol/L (22-30); Chloride 100 mmol/L (98-107); Glucose 94 mg/dL (74-99); Potassium 3.6 mmol/L (3.5-5.1); Sodium 135 mmol/L (137-145)
[2018-08-08 09:03] VITALS: BP 131/79; PULSE 69; RESP 18; TEMP 99.6
[2018-08-08] MEDS: CHOLECALCIFEROL 1,000 UNIT TAB PO SCH (09:09)
[2018-08-08] MEDS: DOCUSATE 100 MG CAP PO PRN (09:10)
[2018-08-08] MEDS: HYDROcodone/APAP 10-325MG 1 EACH TAB PO SCH (09:10)
[2018-08-08] MEDS: PANTOPRAZOLE 40 MG TABLET PO SCH (09:10)
[2018-08-08] MEDS: POTASSIUM CHLORIDE ER 20 MEQ TAB.ER PO SCH (09:10)
[2018-08-08] MEDS: MULTIVITAMINS, THERA 1 EACH TAB PO SCH (09:10)
[2018-08-08] MEDS: AMIODARONE 200 MG TAB PO SCH (09:10)
[2018-08-08] MEDS: METOPROLOL TARTRATE 25 MG TAB PO SCH (09:10)
[2018-08-08] MEDS: busPIRone HCl 10 MG TAB PO SCH (09:11)
[2018-08-08] MEDS: FUROSEMIDE 10 MG/ML 2 ML VIAL IV SCH (09:11)
[2018-08-08] MEDS: MAGNESIUM OXIDE 400 MG TAB PO SCH (09:11)
[2018-08-08] MEDS: FOLIC ACID 1 MG TAB PO SCH (09:11)
[2018-08-08] MEDS: ceFAZolin IN SWFI 2 GM/20 ML SYRINGE IVP SCH (09:16)
--- NOTE | 2018-08-09 15:05 | P.DS ---
Providers Date of admission: 08/03/18 23:54 Attending physician: Con Diaz MD Primary care physician: [facility] Course: Final Diagnoses: - -Acute alcohol intoxication with alcohol withdrawal symptoms, early DTs -History of bilateral leg cellulitis and leg edema -Ongoing nicotine dependence -Chronic proximal atrial fibrillation -Acute on chronic CHF, diastolic dysfunction -Anemia, type unknown -Hypertension -Degenerative joint disease -History of hepatitis C treated with interferon for 58 weeks -Chronic liver cirrhosis Hospital course: This is a 68-year-old gentleman admitted with acute alcohol intoxication, bilateral leg edema, generalized weakness. Maintained on CIWA protocol, antibiotics, Lasix. Significant clinical improvement. Initially qualified for subacute rehab but has continued to improve. No longer qualifies for subacute rehab per this morning's evaluation by PT. Cleared by all consults for discharge. Patient is being discharged home in a stable condition with guarded prognosis. EXAM: GENERAL: Alert and oriented 3, no acute distress CARDIOVASCULAR: S1, S2 muffled. No murmur RESPIRATION: Breath sounds diminished in the bases. No rhonchi or crackles. ABDOMEN: Soft, nontender . No guarding. no masses palpable. NERVOUS SYSTEM: No focal deficits. The impression and plan of care has been dictated as directed. : I performed a history and examination of this patient, discussed the same with the dictator. I agree with the dictator's note ,documented as a scribe. Any additional findings or plans will be noted. Time taken: 35 minutes Patient Condition at Discharge: Stable Plan - Discharge Summary Discharge Rx Participant: Yes New Discharge Prescriptions: New HYDROcodone/APAP 10-325MG [[place] 10-325] 1 each PO BID #6 tab Magnesium Oxide [Mag-Ox] 400 mg PO DAILY tab Potassium Chloride ER [K-Dur 20] 20 meq PO DAILY tab.er.prt SILVER sulfADIAZINE CREAM [Silvadene Cream] 1 applic TOPICAL DAILY applic Cephalexin [Keflex] 500 mg PO Q8HR #12 cap LORazepam [Ativan] 1 mg PO Q8H PRN 3 Days #9 tab PRN Reason: Anxiety Continue Omeprazole [PriLOSEC] 20 mg PO BID Nitroglycerin Sl Tabs [Nitrostat] 0.4 mg SUBLINGUAL Q5M PRN PRN Reason: Chest Pain Multivitamins, Thera [Multivitamin (formulary)] 1 tab PO W/BRKFST Metoprolol Tartrate 25 mg PO BID Cyanocobalamin (Vitamin B-12) [Vitamin B-12] 1,000 mcg PO DAILY busPIRone HCl [Buspar] 10 mg PO Q8H Folic Acid 1 mg PO DAILY Docusate [Colace] 100 mg PO DAILY PRN PRN Reason: Constipation Amiodarone HCl [Pacerone] 200 mg PO W/BRKFST Cholecalciferol [Vitamin D3] 2,000 unit PO DAILY Acetaminophen Tab [Tylenol] 650 mg PO Q6H PRN PRN Reason: Pain Or Fever > 100.5 Rivaroxaban [Xarelto] 20 mg PO W/SUPPER Changed Furosemide [Lasix] 20 mg PO BID #0 Discontinued Hydrocodone/Acetaminophen [Hydrocodone-Acetamin 10-325 mg] 1 tab PO BID Magnesium Oxide [Mag-Ox] 250 mg PO W/BRKFST Potassium Chloride [K-Tab ER] 20 meq PO BID Discharge Medication List Acetaminophen Tab [Tylenol] 650 mg PO Q6H PRN 08/03/18 [History] Amiodarone HCl [Pacerone] 200 mg PO W/BRKFST 08/03/18 [History] Cholecalciferol [Vitamin D3] 2,000 unit PO DAILY 08/03/18 [History] Cyanocobalamin (Vitamin B-12) [Vitamin B-12] 1,000 mcg PO DAILY 08/03/18 [ History] Docusate [Colace] 100 mg PO DAILY PRN 08/03/18 [History] Folic Acid 1 mg PO DAILY 08/03/18 [History] Metoprolol Tartrate 25 mg PO BID 08/03/18 [History] Multivitamins, Thera [Multivitamin (formulary)] 1 tab PO W/BRKFST 08/03/18 [ History] Nitroglycerin Sl Tabs [Nitrostat] 0.4 mg SUBLINGUAL Q5M PRN 08/03/18 [History] Omeprazole [PriLOSEC] 20 mg PO BID 08/03/18 [History] Rivaroxaban [Xarelto] 20 mg PO W/SUPPER 08/03/18 [History] busPIRone HCl [Buspar] 10 mg PO Q8H 08/03/18 [History] Cephalexin [Keflex] 500 mg PO Q8HR #12 cap 08/08/18 [Rx] Furosemide [Lasix] 20 mg PO BID #0 08/08/18 [Rx] HYDROcodone/APAP 10-325MG [[place] 10-325] 1 each PO BID #6 tab 08/08/18 [Rx] LORazepam [Ativan] 1 mg PO Q8H PRN 3 Days #9 tab 08/08/18 [Rx] Magnesium Oxide [Mag-Ox] 400 mg PO DAILY tab 08/08/18 [Rx] Potassium Chloride ER [K-Dur 20] 20 meq PO DAILY tab.er.prt 08/08/18 [Rx] SILVER sulfADIAZINE CREAM [Silvadene Cream] 1 applic TOPICAL DAILY applic 08/08 [Rx] Follow up Appointment(s)/Referral(s): Anil Grier DO [Primary Care Provider] - 1 Week (after dc from ECF) Harpal Mejia MD [REFERRING] - 3 Days [facility],Nurse [NON-STAFF] - 1 Week Patient Instructions/Handouts: Abuse of Alcohol (DC), Edema (DC) Activity/Diet/Wound Care/Special Instructions: Michael cbc,bmp in 3 days Discharge Disposition: HOME WITH HOME HEALTH SERVICES
== END 2018-08-08 16:18 | disposition home health service (06) | DRG 896 ==
LOC: SUPCPDRO 20:57 → EC 20:57 → 4SSUR 23:54
PROVIDERS: ADMIT Internal Medicine; ATTEND Internal Medicine
DX: F10.231 Alcohol dependence with withdrawal delirium (principal); I50.33 Acute on chronic diastolic (congestive) heart failure; L03.115 Cellulitis of right lower limb; L03.116 Cellulitis of left lower limb; F10.221 Alcohol dependence with intoxication delirium; D64.9 Anemia, unspecified; E03.9 Hypothyroidism, unspecified; F17.210 Nicotine dependence, cigarettes, uncomplicated; I11.0 Hypertensive heart disease with heart failure; I48.2 Chronic atrial fibrillation; K74.60 Unspecified cirrhosis of liver; M19.90 Unspecified osteoarthritis, unspecified site; H26.9 Unspecified cataract; R26.9 Unspecified abnormalities of gait and mobility; Z79.01 Long term (current) use of anticoagulants; Z79.899 Other long term (current) drug therapy; Z86.14 Personal history of Methicillin resistant Staphylococcus aureus infection; Z99.3 Dependence on wheelchair; Z80.0 Family history of malignant neoplasm of digestive organs; Z80.1 Family history of malignant neoplasm of trachea, bronchus and lung; Z82.49 Family history of ischemic heart disease and other diseases of the circulatory system
CPT/HCPCS: 36415; 71046; 80048; 80053; 80320; 81003; 83605; 83735; 83880; 85025; 85610; 85730; 87040; 96372; 99284

== ENCOUNTER 2018-11-25 10:48 | Inpatient (IN) | payer OTHER ==
[2018-11-25] MEDS ORDERED: LORazepam 2 MG/ML INJ IV STA (11:08)
[2018-11-25] MEDS ORDERED: SODIUM CHLORIDE 0.9% 1,000 ML IV STA ×2 (11:08)
--- NOTE | 2018-11-25 11:57 | XR ---
EXAMINATION TYPE: XR chest 2V DATE OF EXAM: 11/25/2018 COMPARISON: Chest radiograph 08/03/2018 HISTORY: Dyspnea and concern for pneumonia TECHNIQUE: Frontal and lateral views of the chest are obtained. FINDINGS: There is no focal air space opacity, pleural effusion, or pneumothorax seen. The cardiac silhouette size is within normal limits. The osseous structures are intact. IMPRESSION: No acute cardiopulmonary process. No significant interval change.
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
[2018-11-25 12:02] LABS: Anisocytosis Slight; Basophils % (A) 0 %; Eosinophils % (A) 0 %; HCT 36.2 % (39.0-53.0); HGB 11.6 gm/dL (13.0-17.5); Hypochromasia Slight; Lymphocytes # (A) 0.5 k/uL (1.0-4.8); Lymphocytes % (A) 4 %; MCH 29.5 pg (25.0-35.0); MCV 92.2 fL (80.0-100.0); Mean Platelet Volume 6.7; Monocytes # (A) 0.7 k/uL (0-1.0); Monocytes % (A) 7 %; Neutrophils # (A) 9.9 k/uL (1.3-7.7); Neutrophils % (A) 88 %; Platelet Count 212 k/uL (150-450); RBC 3.93 m/uL (4.30-5.90); RDW 16.5 % (11.5-15.5); WBC 11.3 k/uL (3.8-10.6)
[2018-11-25 12:15] LABS: INR 1.2 (<1.2); Prothrombin Time 12.8 sec (9.0-12.0)
[2018-11-25 12:40] LABS: Creatine Kinase MB 3.4 ng/mL (0.0-2.4)
[2018-11-25 12:44] LABS: Troponin I 0.038 ng/mL (0.000-0.034)
[2018-11-25 12:47] LABS: ALT 20 U/L (21-72); AST 53 U/L (17-59); Albumin 3.7 g/dL (3.5-5.0); Alcohol <10 mg/dL; Alkaline Phosphatase 79 U/L (38-126); Anion Gap 8 mmol/L; Blood Urea Nitrogen 21 mg/dL (9-20); Calcium 8.1 mg/dL (8.4-10.2); Carbon Dioxide 27 mmol/L (22-30); Chloride 103 mmol/L (98-107); Glucose 107 mg/dL (74-99); Magnesium 1.8 mg/dL (1.6-2.3); Phosphorus 4.1 mg/dL (2.5-4.5); Potassium 3.9 mmol/L (3.5-5.1); Sodium 138 mmol/L (137-145); Total Protein 6.8 g/dL (6.3-8.2)
[2018-11-25 12:57] LABS: Lipase 3995 U/L (23-300)
[2018-11-25] MEDS ORDERED: SODIUM CHLORIDE 0.9% 1,000 ML IV ONE (13:59)
[2018-11-25] MEDS ORDERED: MORPHINE SULFATE 4 MG/ML SYRINGE IVP PRN ×2 (13:59→16:52)
[2018-11-25] MEDS ORDERED: LORazepam 2 MG/ML INJ IV PRN ×2 (13:59)
[2018-11-25] MEDS ORDERED: THIAMINE 100 MG/ML 2 ML VIAL IM STA (13:59)
[2018-11-25 14:25] LABS: Appearance,Urine Clear (Clear); Bacteria,Urine Rare /hpf; Bilirubin,Urine Negative (Negative); Blood,Urine Trace (Negative); Color,Urine Yellow; Glucose,Urine (UA) Negative (Negative); Hyaline Casts,Urine 34 /lpf (0-2); Ketones,Urine Negative (Negative); Leukocyte Esterase,Urine Negative (Negative); Mucus,Urine Occasional /hpf; Nitrite,Urine Negative (Negative); PH, Urine 5.5 (5.0-8.0); Protein,Urine Trace (Negative); RBC,Urine 2 /hpf (0-5); Specific Gravity,Urine 1.018 (1.001-1.035); Squamous Epithelial Cell,Urine <1 /hpf (0-4); Urobilinogen,Urine <2.0 mg/dL (<2.0); WBC,Urine 4 /hpf (0-5)
[2018-11-25] MEDS: DEXTROSE 5%-0.45% NACL 1,000 ML IV SCH (15:16)
[2018-11-25 16:33] LABS: VBG PH 7.44 (7.31-7.41)
[2018-11-25] MEDS ORDERED: NITROGLYCERIN SL TABS 0.4 MG TAB SUBLINGUAL PRN (16:39)
[2018-11-25] MEDS ORDERED: IPRATROPIUM-ALBUTEROL 3 ML NEB INHALATION PRN (16:50)
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
[2018-11-25] MEDS: busPIRone HCl 10 MG TAB PO SCH (17:31)
[2018-11-25] MEDS: THIAMINE 100 MG TAB PO SCH (17:35)
[2018-11-25] MEDS: RIVAROXABAN 20 MG TAB PO SCH (17:35)
[2018-11-25] MEDS: LORazepam 2 MG/ML INJ IV PRN (17:35)
[2018-11-25] MEDS: METOPROLOL TARTRATE 25 MG TAB PO SCH (20:32)
[2018-11-25] MEDS: DOXYCYCLINE 100 MG CAP PO SCH (20:32)
[2018-11-25] MEDS: IPRATROPIUM-ALBUTEROL 3 ML NEB INHALATION SCH (21:27)
[2018-11-26] MEDS: busPIRone HCl 10 MG TAB PO SCH ×4 (00:34→23:20)
[2018-11-26] MEDS: LORazepam 2 MG/ML INJ IV PRN ×2 (02:27→11:49)
[2018-11-26] MEDS: DEXTROSE 5%-0.45% NACL 1,000 ML IV SCH ×2 (02:27→14:29)
[2018-11-26] MEDS: DOXYCYCLINE 100 MG CAP PO SCH ×2 (07:43→20:20)
[2018-11-26] MEDS: AMIODARONE 200 MG TAB PO SCH (07:43)
[2018-11-26] MEDS: PANTOPRAZOLE 40 MG/10 ML VIAL IVP SCH (07:43)
[2018-11-26] MEDS: METOPROLOL TARTRATE 25 MG TAB PO SCH ×2 (07:43→20:20)
[2018-11-26] MEDS: IPRATROPIUM-ALBUTEROL 3 ML NEB INHALATION SCH ×4 (08:14→20:03)
[2018-11-26 08:37] LABS: ALT 21 U/L (21-72); AST 70 U/L (17-59); Albumin 3.5 g/dL (3.5-5.0); Alkaline Phosphatase 68 U/L (38-126); Anion Gap 8 mmol/L; Blood Urea Nitrogen 15 mg/dL (9-20); Calcium 8.5 mg/dL (8.4-10.2); Carbon Dioxide 27 mmol/L (22-30); Chloride 101 mmol/L (98-107); Glucose 87 mg/dL (74-99); Lipase 1771 U/L (23-300); Magnesium 1.8 mg/dL (1.6-2.3); Potassium 3.8 mmol/L (3.5-5.1); Sodium 136 mmol/L (137-145); Total Bilirubin 1.2 mg/dL (0.2-1.3); Total Protein 6.5 g/dL (6.3-8.2)
[2018-11-26 08:58] LABS: Anisocytosis Slight; HGB 10.5 gm/dL (13.0-17.5); Hypochromasia Slight; MCH 29.8 pg (25.0-35.0); MCHC 31.8 g/dL (31.0-37.0); MCV 93.5 fL (80.0-100.0); Mean Platelet Volume 7.3; Platelet Count 173 k/uL (150-450); RBC 3.53 m/uL (4.30-5.90); RDW 16.4 % (11.5-15.5); WBC 11.2 k/uL (3.8-10.6)
[2018-11-26] MEDS ORDERED: ENOXAPARIN 40 MG/0.4 ML SYRINGE SQ SCH (09:00)
[2018-11-26] MEDS: THIAMINE 100 MG TAB PO SCH ×2 (11:46→16:24)
--- NOTE | 2018-11-26 13:46 | P.PN ---
Subjective 68-year-old admitted for the acute pancreatitis and is also being treated for alcohol withdrawal. Patient is not having significant withdrawals patient is feeling better this no significant nausea patient will be started on clear liquid diet with advance as tolerated patient's lipase has come down to 17,000. Patient is complaining of back pain Constitutional: Denied any fatigue denied any fever. Cardio vascular: denied any chest pain, palpitations Gastrointestinal denied any nausea vomiting Pulmonary: Denied any shortness of breath cough Neurologic denied any new focal deficits All inpatient medications were reviewed and appropriate changes in these medications as dictated in the interval history and assessment and plan. Objective - Vital Signs Vital signs: Vital Signs Temp 99.0 F 11/26/18 05:58 Pulse 81 11/26/18 05:58 Resp 18 11/26/18 05:58 BP 154/64 11/26/18 05:58 Pulse Ox 98 11/26/18 05:58 Intake & Output 11/25/18 11/26/18 11/26/18 18:59 06:59 18:59 Output Total 800 Balance -800 Weight 131.542 kg Output: Urine 800 Other: # Voids 2 - Exam PHYSICAL EXAMINATION: GENERAL: The patient is alert and oriented x3, not in any acute distress. Obese HEENT: Pupils are round and equally reacting to light. EOMI. No scleral icterus. No conjunctival pallor. Normocephalic, atraumatic. No pharyngeal erythema. No thyromegaly. CARDIOVASCULAR: S1 and S2 present. No murmurs, rubs, or gallops. PULMONARY: Minimal expiratory wheezing ABDOMEN: Soft, tenderness significantly improved nondistended, normoactive bowel sounds. No palpable organomegaly. MUSCULOSKELETAL: No joint swelling or deformity. EXTREMITIES: No cyanosis, clubbing, or pedal edema. NEUROLOGICAL: Gross neurological examination did not reveal any focal deficits. SKIN: No rashes. - Labs CBC & Chem 7: 11/26/18 07:27 11/26/18 07:27 Labs: Abnormal Lab Results - Last 24 Hours (Table) 11/25/18 11/25/18 11/26/18 Range/Units 13:00 15:35 07:27 WBC 11.2 H (3.8-10.6) k/uL RBC 3.53 L (4.30-5.90) m/uL Hgb 10.5 L (13.0-17.5) gm/dL Hct 33.0 L (39.0-53.0) % RDW 16.4 H (11.5-15.5) % VBG pH 7.44 H (7.31-7.41) Sodium (137-145) mmol/L AST (17-59) U/L Lipase (23-300) U/L Urine Protein Trace H (Negative) Urine Blood Trace H (Negative) Urine Bacteria Rare H (None) /hpf Hyaline Casts 34 H (0-2) /lpf Urine Mucus Occasional H (None) /hpf 11/26/18 Range/Units 07:27 WBC (3.8-10.6) k/uL RBC (4.30-5.90) m/uL Hgb (13.0-17.5) gm/dL Hct (39.0-53.0) % RDW (11.5-15.5) % VBG pH (7.31-7.41) Sodium 136 L (137-145) mmol/L AST 70 H (17-59) U/L Lipase 1771 H (23-300) U/L Urine Protein (Negative) Urine Blood (Negative) Urine Bacteria (None) /hpf Hyaline Casts (0-2) /lpf Urine Mucus (None) /hpf Assessment and Plan Plan: -Abdominal pain nausea vomiting seconded alcoholic pancreatitis, patient will be nothing by mouth continue with IV fluids pain medications. Patient the pain and nausea improved patient will be started on clear liquid and advance as tolerated -Alcohol withdrawals: Patient will be on CIWA Ativan protocol thiamine multivitamin supplementation IV fluids -Lactic acidosis secondary to acute pancreatitis and significant O volume depletion and dehydration lactic acidosis improved patient will continue on IV fluids as mentioned above patient received 3 L of normal saline in ER -Acute tracheobronchitis for which we'll use the doxycycline -COPD with mild acute exacerbation we will use inhaled steroids inhalational treatments reassess tomorrow if he doesn't improve patient was started on systemic steroids -Atrial fibrillation presently sinus rhythm but tachycardic sinus tachycardia continue with amiodarone beta darwin can he was also -Hypertension -Hypothyroidism -Alcohol abuse: Counseling was provided -Nicotine abuse Abdomen minimal elevation of troponins, repeat troponins trended down
[2018-11-26] MEDS: HYDROcodone/APAP 7.5-325MG 1 EACH TAB PO PRN ×2 (14:29→20:20)
[2018-11-26] MEDS: RIVAROXABAN 20 MG TAB PO SCH (16:24)
[2018-11-27] MEDS: HYDROcodone/APAP 7.5-325MG 1 EACH TAB PO PRN ×3 (03:25→20:19)
[2018-11-27] MEDS: DEXTROSE 5%-0.45% NACL 1,000 ML IV SCH ×2 (03:25→17:08)
[2018-11-27] MEDS: IPRATROPIUM-ALBUTEROL 3 ML NEB INHALATION SCH ×4 (07:34→20:05)
[2018-11-27 07:53] LABS: Anisocytosis Slight; HCT 30.3 % (39.0-53.0); HGB 9.6 gm/dL (13.0-17.5); Hypochromasia Slight; MCH 29.6 pg (25.0-35.0); MCHC 31.7 g/dL (31.0-37.0); MCV 93.3 fL (80.0-100.0); Mean Platelet Volume 7.4; Platelet Count 150 k/uL (150-450); RBC 3.25 m/uL (4.30-5.90); RDW 16.6 % (11.5-15.5); WBC 9.2 k/uL (3.8-10.6)
[2018-11-27] MEDS: DOXYCYCLINE 100 MG CAP PO SCH ×2 (08:09→20:19)
[2018-11-27] MEDS: busPIRone HCl 10 MG TAB PO SCH ×3 (08:09→22:30)
[2018-11-27] MEDS: AMIODARONE 200 MG TAB PO SCH (08:09)
[2018-11-27] MEDS: THIAMINE 100 MG TAB PO SCH ×2 (08:10→17:36)
[2018-11-27] MEDS: METOPROLOL TARTRATE 25 MG TAB PO SCH ×2 (08:10→20:19)
[2018-11-27] MEDS: PANTOPRAZOLE 40 MG/10 ML VIAL IVP SCH (08:10)
[2018-11-27 08:22] LABS: ALT 28 U/L (21-72); AST 90 U/L (17-59); Albumin 3.3 g/dL (3.5-5.0); Alkaline Phosphatase 65 U/L (38-126); Anion Gap 5 mmol/L; Blood Urea Nitrogen 11 mg/dL (9-20); Calcium 8.6 mg/dL (8.4-10.2); Carbon Dioxide 24 mmol/L (22-30); Chloride 105 mmol/L (98-107); Glucose 79 mg/dL (74-99); Potassium 3.6 mmol/L (3.5-5.1); Sodium 134 mmol/L (137-145); Total Bilirubin 1.2 mg/dL (0.2-1.3); Total Protein 6.3 g/dL (6.3-8.2)
[2018-11-27] MEDS: RIVAROXABAN 20 MG TAB PO SCH (17:36)
--- NOTE | 2018-11-27 20:22 | P.PN ---
Subjective Progress Note Date: 11/27/18 interval history:68-year-old admitted for the acute pancreatitis and is also being treated for alcohol withdrawal. Patient is not having significant withdrawals patient is feeling better this no significant nausea patient will be started on clear liquid diet with advance as tolerated patient's lipase has come down to 17,000. Patient is complaining of back pain 11/27/2018 denies abdominal pain.back pain improving. States he is hungry. Tolerating clear liquids with no nausea, vomiting or diarrhea.afebrile, normal WBC.preliminary blood cultures negative at 48 hrs. Lipase added to labs, pending.NO DTS, has not required Ativan this morning,staff reports none given last night. Constitutional: Denied any fatigue denied any fever. Cardio vascular: denied any chest pain, palpitations Gastrointestinal denied any nausea vomiting Pulmonary: Denied any shortness of breath cough Neurologic denied any new focal deficits All inpatient medications were reviewed and appropriate changes in these medications as dictated in the interval history and assessment and plan. Objective - Vital Signs Vital signs: Vital Signs Temp 98.0 F 11/27/18 14:50 Pulse 80 11/27/18 14:50 Resp 16 11/27/18 14:50 BP 113/71 11/27/18 14:50 Pulse Ox 96 11/27/18 14:50 Intake & Output 11/27/18 11/27/18 11/28/18 06:59 18:59 06:59 Output Total 650 Balance -650 Output: Urine 650 Other: # Voids 3 # Bowel Movements 0 - Exam GENERAL: The patient is alert and oriented x3, not in any acute distress. Obese HEENT: Pupils are round and equally reacting to light. EOMI. No scleral icterus. No conjunctival pallor. Normocephalic, atraumatic. oral mucosa moist CARDIOVASCULAR: S1 and S2 present. No murmurs, rubs, or gallops. PULMONARY: essentially clear, no rhonchi, crackles or wheezing ABDOMEN: Soft, no tenderness, nondistended, normoactive bowel sounds. No palpable organomegaly. MUSCULOSKELETAL: No joint swelling or deformity. EXTREMITIES: No cyanosis, clubbing, or pedal edema. NEUROLOGICAL: Gross neurological examination did not reveal any focal deficits. SKIN: No rashes. - Labs CBC & Chem 7: 11/27/18 07:26 11/27/18 07:26 Labs: Abnormal Lab Results - Last 24 Hours (Table) 11/27/18 11/27/18 Range/Units 07:26 07:26 RBC 3.25 L (4.30-5.90) m/uL Hgb 9.6 L (13.0-17.5) gm/dL Hct 30.3 L (39.0-53.0) % RDW 16.6 H (11.5-15.5) % Sodium 134 L (137-145) mmol/L AST 90 H (17-59) U/L Albumin 3.3 L (3.5-5.0) g/dL Microbiology - Last 24 Hours (Table) 11/25/18 11:59 Blood Culture - Preliminary Blood No Growth after 48 hours Assessment and Plan Assessment: -Abdominal pain nausea vomiting seconded alcoholic pancreatitis -Alcohol withdrawals, none currently -Lactic acidosis secondary to acute pancreatitis ,dehydration, improved -Acute tracheobronchitis -COPD with mild acute exacerbation -Atrial fibrillation presently sinus rhythm,tachycardia resolved. -Hypertension -Hypothyroidism -Alcohol abuse: Counseling was provided -Nicotine abuse Abdomen minimal elevation of troponins, repeat troponins trended down. plan: Continue on current medication regime ,PPI,monitoring and symptomatic treatment. Advance diet as tolerated. Close monitoring of LFTs, lipase with repeat labs ordered for a.m. Maintain CIWA protocol. discharge planning in progress for tomorrow. The impression and plan of care has been dictated as directed. : I performed a history and examination of this patient, discussed the same with the dictator. I agree with the dictator's note ,documented as a scribe. Any additional findings or plans will be noted.
[2018-11-28 01:10] VITALS: RESP 20
[2018-11-28] MEDS: DEXTROSE 5%-0.45% NACL 1,000 ML IV SCH (04:13)
[2018-11-28] MEDS: HYDROcodone/APAP 7.5-325MG 1 EACH TAB PO PRN ×2 (04:14→10:52)
[2018-11-28] MEDS: IPRATROPIUM-ALBUTEROL 3 ML NEB INHALATION SCH ×2 (07:37→11:32)
[2018-11-28] MEDS: PANTOPRAZOLE 40 MG/10 ML VIAL IVP SCH (07:45)
[2018-11-28] MEDS: METOPROLOL TARTRATE 25 MG TAB PO SCH (07:46)
[2018-11-28] MEDS: THIAMINE 100 MG TAB PO SCH (07:46)
[2018-11-28] MEDS: DOXYCYCLINE 100 MG CAP PO SCH (07:46)
[2018-11-28] MEDS: AMIODARONE 200 MG TAB PO SCH (07:46)
[2018-11-28] MEDS: busPIRone HCl 10 MG TAB PO SCH (07:46)
[2018-11-28 07:56] VITALS: BP 117/67; PULSE 61; TEMP 96.6
[2018-11-28 09:52] LABS: Anisocytosis Slight; Basophils % (A) 0 %; Eosinophils # (A) 0.2 k/uL (0-0.7); Eosinophils % (A) 2 %; HCT 31.3 % (39.0-53.0); Hypochromasia Slight; Lymphocytes # (A) 0.6 k/uL (1.0-4.8); Lymphocytes % (A) 9 %; MCH 30.1 pg (25.0-35.0); MCV 94.1 fL (80.0-100.0); Mean Platelet Volume 7.3; Monocytes # (A) 0.5 k/uL (0-1.0); Monocytes % (A) 7 %; Neutrophils # (A) 5.7 k/uL (1.3-7.7); Neutrophils % (A) 79 %; Platelet Count 156 k/uL (150-450); RBC 3.33 m/uL (4.30-5.90); WBC 7.2 k/uL (3.8-10.6)
[2018-11-28 10:14] LABS: ALT 31 U/L (21-72); AST 100 U/L (17-59); Albumin 3.3 g/dL (3.5-5.0); Alkaline Phosphatase 95 U/L (38-126); Anion Gap 7 mmol/L; Blood Urea Nitrogen 10 mg/dL (9-20); Calcium 8.6 mg/dL (8.4-10.2); Carbon Dioxide 25 mmol/L (22-30); Chloride 105 mmol/L (98-107); Glucose 102 mg/dL (74-99); Lipase 650 U/L (23-300); Potassium 3.6 mmol/L (3.5-5.1); Sodium 137 mmol/L (137-145); Total Bilirubin 0.8 mg/dL (0.2-1.3); Total Protein 6.2 g/dL (6.3-8.2)
== END 2018-11-28 13:31 | disposition home or self-care (01) | DRG 439 ==
LOC: EC 10:48 → 4MS4W 13:59
PROVIDERS: ADMIT Hospitalist; ATTEND Hospitalist
DX: K85.90 Acute pancreatitis without necrosis or infection, unspecified (principal); J44.0 Chronic obstructive pulmonary disease with (acute) lower respiratory infection; J44.1 Chronic obstructive pulmonary disease with (acute) exacerbation; E87.2 Acidosis; F10.239 Alcohol dependence with withdrawal, unspecified; J20.9 Acute bronchitis, unspecified; E03.9 Hypothyroidism, unspecified; E86.0 Dehydration; F17.210 Nicotine dependence, cigarettes, uncomplicated; I10 Essential (primary) hypertension; I48.91 Unspecified atrial fibrillation; K70.30 Alcoholic cirrhosis of liver without ascites; Z79.01 Long term (current) use of anticoagulants; Z80.1 Family history of malignant neoplasm of trachea, bronchus and lung; Z82.49 Family history of ischemic heart disease and other diseases of the circulatory system; Z80.0 Family history of malignant neoplasm of digestive organs; Z86.14 Personal history of Methicillin resistant Staphylococcus aureus infection; R74.8 Abnormal levels of other serum enzymes; Z86.19 Personal history of other infectious and parasitic diseases; M19.90 Unspecified osteoarthritis, unspecified site; H26.9 Unspecified cataract; Z79.899 Other long term (current) drug therapy; Z71.41 Alcohol abuse counseling and surveillance of alcoholic
CPT/HCPCS: 36415; 71046; 80053; 80320; 81001; 82009; 82550; 82553; 82803; 83605; 83690; 83735; 83880; 84100; 84484; 85025; 85027; 85610; 85730; 87040; 93005; 96361; 96372; 96374; 99285

== ENCOUNTER 2020-06-29 21:45 | Inpatient (IN) | payer OTHER ==
[2020-06-29] MEDS ORDERED: HYDROmorphone 1 MG/ML 1 ML SYRINGE IVP PRN (22:15)
[2020-06-29] MEDS ORDERED: NALOXONE 0.4 MG/ML 1 ML VIAL IV PRN (22:16)
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
[2020-06-29] MEDS ORDERED: SODIUM CHLORIDE 0.9% 1,000 ML IV ONE (22:26)
[2020-06-29] MEDS ORDERED: THIAMINE 100 MG/ML 2 ML VIAL IM STA (22:27)
[2020-06-29] MEDS ORDERED: KETOROLAC 15 MG/ML 1 ML VIAL IVP STA (22:27)
[2020-06-29] MEDS ORDERED: LORazepam 2 MG/ML INJ IV PRN ×2 (22:27)
[2020-06-29] MEDS: THIAMINE 100 MG TAB PO SCH (22:39)
[2020-06-29] MEDS: LORazepam 2 MG/ML INJ IV PRN (22:47)
[2020-06-29] MEDS: SODIUM CHLORIDE 0.9% 1,000 ML IV SCH (23:25)
[2020-06-30] MEDS ORDERED: ACETAMINOPHEN IV (For NPO) 1,000 MG in EMPTY BAG 1 BAG IVPB ONE (00:12)
[2020-06-30] MEDS ORDERED: ACETAMINOPHEN TAB 325 MG TAB PO STA (00:21)
[2020-06-30] MEDS: LORazepam 2 MG/ML INJ IV PRN ×6 (00:47→17:34)
[2020-06-30] MEDS ORDERED: MORPHINE SULFATE 2 MG/ML SYRINGE IVP STA (01:49)
[2020-06-30] MEDS: AMIODARONE 200 MG TAB PO SCH ×2 (03:46→08:40)
[2020-06-30] MEDS: METOPROLOL SUCCINATE (ER) 50 MG TAB.ER.24H PO SCH ×2 (03:46→08:40)
[2020-06-30] MEDS: SODIUM CHLORIDE 0.9% 1,000 ML IV SCH ×3 (05:09→17:58)
[2020-06-30 07:00] LABS: Glucose,Whole Blood 147 mg/dL (75-99)
[2020-06-30] MEDS: THIAMINE 100 MG TAB PO SCH ×2 (08:40→17:34)
[2020-06-30 09:30] LABS: Anisocytosis Slight; Basophils % (A) 0 %; Eosinophils % (A) 0 %; HCT 39.7 % (39.0-53.0); HGB 12.4 gm/dL (13.0-17.5); Lymphocytes # (A) 0.5 k/uL (1.0-4.8); Lymphocytes % (A) 4 %; MCH 31.5 pg (25.0-35.0); MCHC 31.3 g/dL (31.0-37.0); MCV 100.8 fL (80.0-100.0); Macrocytosis Slight; Mean Platelet Volume 7.6; Monocytes # (A) 0.7 k/uL (0-1.0); Monocytes % (A) 6 %; Neutrophils # (A) 10.6 k/uL (1.3-7.7); Neutrophils % (A) 88 %; Platelet Count 166 k/uL (150-450); RBC 3.94 m/uL (4.30-5.90); RDW 17.8 % (11.5-15.5); WBC 12.1 k/uL (3.8-10.6)
[2020-06-30 09:45] LABS: ALT 11 U/L (4-49); AST 29 U/L (17-59); African American GFR (CKD) >90 (>60 ml/min/1.73 sqM); Albumin 2.9 g/dL (3.5-5.0); Alkaline Phosphatase 57 U/L (38-126); Amylase 160 U/L (30-110); Anion Gap 2 mmol/L; Blood Urea Nitrogen 13 mg/dL (9-20); Calcium 7.9 mg/dL (8.4-10.2); Carbon Dioxide 29 mmol/L (22-30); Chloride 102 mmol/L (98-107); Glucose 134 mg/dL (74-99); Non-African American GFR(CKD) 83 (>60 ml/min/1.73 sqM); Potassium 4.8 mmol/L (3.5-5.1); Sodium 133 mmol/L (137-145); Total Bilirubin 0.8 mg/dL (0.2-1.3); Total Protein 5.7 g/dL (6.3-8.2)
[2020-06-30] MEDS ORDERED: IPRATROPIUM-ALBUTEROL 3 ML NEB INHALATION PRN (10:22)
--- NOTE | 2020-06-30 11:04 | XR ---
EXAMINATION TYPE: XR chest 2V DATE OF EXAM: 06/30/2020 COMPARISON: Chest x-ray November 25, 2018. Outside chest x-ray from yesterday. HISTORY: Pneumonia. TECHNIQUE: Frontal and lateral views of the chest are obtained. FINDINGS: There is new elevated left hemidiaphragm from older studies with worsening left basilar ac meghann infiltrate and/or atelectasis. Right lung remains clear. The cardiac silhouette size is stable a nd upper limits of normal. Degenerative change bilateral shoulders is present. IMPRESSION: Elevated left hemidiaphragm with worsening left basilar acute infiltrate and/or atelecta sis from 1 day earlier.
[2020-06-30 11:42] LABS: Glucose,Whole Blood 135 mg/dL (75-99)
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
[2020-06-30] MEDS: IPRATROPIUM-ALBUTEROL 3 ML NEB INHALATION SCH ×3 (13:01→20:40)
[2020-06-30] MEDS: LACTATED RINGERS 1,000 ML IV SCH ×3 (15:09→16:26)
[2020-06-30] MEDS: HYDROcodone/APAP 5-325MG 1 EACH TAB PO PRN ×2 (15:15→21:20)
[2020-06-30 17:06] LABS: Glucose,Whole Blood 134 mg/dL (75-99)
[2020-06-30] MEDS: RIVAROXABAN 20 MG TAB PO SCH (17:34)
[2020-06-30] MEDS: BUDESONIDE 0.5 MG/2 ML NEBU INHALATION SCH (20:38)
[2020-06-30] MEDS: PANTOPRAZOLE 40 MG/10 ML VIAL IVP SCH (21:14)
[2020-06-30] MEDS: HYDROCORTISONE 2.5% RECTAL CREAM 30 GM TUBE RECTAL SCH (21:14)
[2020-06-30] MEDS: GABAPENTIN 400 MG CAP PO SCH (21:14)
[2020-07-01] MEDS: SODIUM CHLORIDE 0.9% 1,000 ML IV SCH ×3 (01:22→16:16)
[2020-07-01] MEDS: HYDROcodone/APAP 5-325MG 1 EACH TAB PO PRN (05:10)
[2020-07-01] MEDS ORDERED: ACETAMINOPHEN TAB 325 MG TAB PO PRN (05:21)
[2020-07-01] MEDS ORDERED: MORPHINE SULFATE 4 MG/ML SYRINGE IVP PRN (05:23)
[2020-07-01 06:49] LABS: Glucose,Whole Blood 129 mg/dL (75-99)
[2020-07-01] MEDS: THIAMINE 100 MG TAB PO SCH ×3 (07:02→16:17)
[2020-07-01] MEDS: LEVOTHYROXINE 25 MCG TAB PO SCH (07:48)
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
[2020-07-01] MEDS: BUDESONIDE 0.5 MG/2 ML NEBU INHALATION SCH ×2 (08:51→21:15)
[2020-07-01] MEDS: IPRATROPIUM-ALBUTEROL 3 ML NEB INHALATION SCH ×4 (08:51→21:15)
[2020-07-01 08:58] LABS: Anisocytosis Slight; Basophils % (A) 0 %; Eosinophils % (A) 0 %; HGB 11.8 gm/dL (13.0-17.5); Hypochromasia Slight; Lymphocytes # (A) 0.7 k/uL (1.0-4.8); Lymphocytes % (A) 6 %; MCH 32.1 pg (25.0-35.0); MCHC 30.9 g/dL (31.0-37.0); MCV 103.7 fL (80.0-100.0); Macrocytosis Moderate; Mean Platelet Volume 9.4; Monocytes # (A) 0.7 k/uL (0-1.0); Monocytes % (A) 6 %; Neutrophils # (A) 10.2 k/uL (1.3-7.7); Neutrophils % (A) 86 %; Platelet Count 144 k/uL (150-450); RBC 3.66 m/uL (4.30-5.90); RDW 17.6 % (11.5-15.5); WBC 11.8 k/uL (3.8-10.6)
[2020-07-01 10:13] LABS: Amylase 87 U/L (23-121)
[2020-07-01] MEDS: GABAPENTIN 400 MG CAP PO SCH ×2 (10:21→20:15)
[2020-07-01] MEDS: METOPROLOL SUCCINATE (ER) 50 MG TAB.ER.24H PO SCH (10:22)
[2020-07-01] MEDS: HYDROCORTISONE 2.5% RECTAL CREAM 30 GM TUBE RECTAL SCH ×2 (10:22→21:09)
[2020-07-01] MEDS: PANTOPRAZOLE 40 MG/10 ML VIAL IVP SCH ×2 (10:23→20:15)
[2020-07-01] MEDS: AMIODARONE 200 MG TAB PO SCH (10:24)
[2020-07-01] MEDS: AZITHROMYCIN 500 MG TAB PO SCH (10:24)
[2020-07-01 10:29] LABS: Appearance,Urine Clear (Clear); Bacteria,Urine Rare /hpf; Bilirubin,Urine Negative (Negative); Blood,Urine Negative (Negative); Color,Urine Yellow; Glucose,Urine (UA) Negative (Negative); Ketones,Urine Negative (Negative); Leukocyte Esterase,Urine Negative (Negative); Mucus,Urine Rare /hpf; Nitrite,Urine Negative (Negative); PH, Urine 6.5 (5.0-8.0); Protein,Urine 1+ (Negative); RBC,Urine 2 /hpf (0-5); Specific Gravity,Urine 1.031 (1.001-1.035); Sperm,Urine Rare /hpf; Urobilinogen,Urine <2.0 mg/dL (<2.0); WBC,Urine 1 /hpf (0-5)
[2020-07-01 11:44] LABS: African American GFR (CKD) 103.4 (60.0-200.0); Anion Gap 5.6 mmol/L (4.00-12.00); BUN/Creat Ratio 13.75 Ratio (12.00-20.00); Calcium 8.1 mg/dL (8.7-10.3); Carbon Dioxide 25.4 mmol/L (21.6-31.8); Non-African American GFR(CKD) 89.2 (60.0-200.0); Potassium 4.6 mmol/L (3.5-5.5)
[2020-07-01] MEDS ORDERED: methylPREDNISolone SOD SUCCI 40 MG/ML 1 ML VIAL IV STA (11:56)
--- NOTE | 2020-07-01 13:09 | XR ---
EXAMINATION TYPE: XR chest 2V DATE OF EXAM: 07/01/2020 COMPARISON: Prior chest x-ray 06/30/2020 HISTORY: Abnormal chest x-ray, rule out pneumonia TECHNIQUE: Frontal and lateral views of the chest are obtained. FINDINGS: There is opacity at the left lung base obscuring the left hemidiaphragm. There is no evide nt pneumothorax. Heart size is likely stable. Bones are unchanged. There are overlying cardiac leads. IMPRESSION: Correlate for left lower lobe atelectasis versus pneumonia and associated effusion. IMPRESSION: No acute cardiopulmonary process.
--- NOTE | 2020-07-01 13:20 | P.PN ---
Subjective Progress Note Date: 07/01/20 Principal diagnosis: Pancreatitis This is 70-year-old male with multiple medical comorbidities who came in with acute on chronic pancreatitis. He has had previous episodes of pancreatitis secondary to alcohol abuse. The patient has a history of alcohol abuse who admits to drinking a fifth a day, hepatitis C which was treated with interferon and ribavirin. The patient was seen and examined at the bedside. He has been tolerating ice chips. He states his abdominal pain has improved some, however still experiencing epigastric and right upper quadrant pain. He denies any nausea or vomiting. He continues to have a productive cough with some mild shortness of breath. He denies any chest pain. Repeat chest x-ray impression is correlate for left lower lobe atelectasis versus pneumonia and associated effusion with no acute cardiopulmonary process. Amylase improved from 160 to 87, lipase 1368 to 100. Objective - Vital Signs Vital signs: Vital Signs Temp 99.2 F 07/01/20 09:30 Pulse 98 07/01/20 12:11 Resp 18 07/01/20 09:30 BP 127/76 07/01/20 12:05 Pulse Ox 94 L 07/01/20 09:30 Intake & Output 06/30/20 07/01/20 07/01/20 18:59 06:59 18:59 Other: Voiding Method Urinal # Voids 3 0 - Exam On physical examination, patient appears comfortable in no apparent distress. HEAD: Normocephalic, atraumatic. EYES: No scleral icterus. No conjunctival injection. MOUTH: No lesions, tongue midline. NECK: Trachea midline, no gross abnormalities. CHEST: Decreased air entry in all richards. HEART: S1-S2 appreciated. ABDOMEN: Soft, obese, tender to palpation in epigastric region. Bowel sounds are positive. No organomegaly. No guarding or rigidity. EXTREMITIES: No pedal edema. SKIN: No rashes, no jaundice. NEUROLOGIC: Alert and oriented x3. No focal deficits. - Labs CBC & Chem 7: 07/01/20 05:26 07/01/20 05:26 Labs: Abnormal Lab Results - Last 24 Hours (Table) 06/30/20 07/01/20 07/01/20 Range/Units 17:04 05:26 05:26 WBC 11.8 H (3.8-10.6) k/uL RBC 3.66 L (4.30-5.90) m/uL Hgb 11.8 L (13.0-17.5) gm/dL Hct 38.0 L (39.0-53.0) % MCV 103.7 H (80.0-100.0) fL MCHC 30.9 L (31.0-37.0) g/dL RDW 17.6 H (11.5-15.5) % Plt Count 144 L (150-450) k/uL Neutrophils # 10.2 H (1.3-7.7) k/uL Lymphocytes # 0.7 L (1.0-4.8) k/uL Glucose (70-110) mg/dL POC Glucose (mg/dL) 134 H (75-99) mg/dL Calcium (8.7-10.3) mg/dL Lipase 100 H (14-60) U/L Urine Protein (Negative) Urine Bacteria (None) /hpf Urine Mucus (None) /hpf 07/01/20 07/01/20 07/01/20 Range/Units 05:26 06:47 09:20 WBC (3.8-10.6) k/uL RBC (4.30-5.90) m/uL Hgb (13.0-17.5) gm/dL Hct (39.0-53.0) % MCV (80.0-100.0) fL MCHC (31.0-37.0) g/dL RDW (11.5-15.5) % Plt Count (150-450) k/uL Neutrophils # (1.3-7.7) k/uL Lymphocytes # (1.0-4.8) k/uL Glucose 112 H (70-110) mg/dL POC Glucose (mg/dL) 129 H (75-99) mg/dL Calcium 8.1 L (8.7-10.3) mg/dL Lipase (14-60) U/L Urine Protein 1+ H (Negative) Urine Bacteria Rare H (None) /hpf Urine Mucus Rare H (None) /hpf Microbiology - Last 24 Hours (Table) 06/29/20 22:19 Blood Culture - Preliminary Blood No Growth after 24 hours Assessment and Plan Assessment: (1) Acute on chronic pancreatitis Narrative/Plan: 70-year-old male with a known history of alcohol abuse, prior episodes of pancreatitis, hepatitis C for which he received treatment with ribavirin and interferon who presented to the hospital due to concerns of abdominal pain. Computed tomography scan of the abdomen at [facility] showed changes consistent with acute on chronic pancreatitis with pseudocyst formation. Lipase elevated at 1368 on presentation. Patient actively drinks alcohol approximately pint of liquor daily. Current Visit: Yes Status: Acute Code(s): K85.90 - ACUTE PANCREATITIS WITHOUT NECROSIS OR INFECTION, UNSP; K86.1 - OTHER CHRONIC PANCREATITIS SNOMED Code(s): 070683351 (2) Alcohol abuse Current Visit: Yes Status: Acute Code(s): F10.10 - ALCOHOL ABUSE, UNCOMPLICATED SNOMED Code(s): 42277141 (3) Epigastric pain Current Visit: Yes Status: Acute Code(s): R10.13 - EPIGASTRIC PAIN SNOMED Code(s): 29776441 (4) Pancreatic cyst Current Visit: Yes Status: Acute Code(s): K86.2 - CYST OF PANCREAS SNOMED Code(s): 04269231 Plan: Supportive care Advance to clear liquid diet, discussed with patient with moderation Continue IV fluid hydration, one additional liter of lactated Ringer's ordered Continue pain control Alcohol abstinence Continue to monitor and treat for signs or symptoms of alcohol withdrawal Thank you for allowing us to participate in the care of the patient we will continue to follow The impression and plan of care has been dictated as directed. Dr. Raven Alvarez I performed a history and examination of this patient, discussed the same with the dictator. I agree with the dictator's note ,documented as a scribe. Any additional findings or plans will be noted.
--- NOTE | 2020-07-01 14:03 | P.PN ---
Subjective Patient is being treated for alcoholic pancreatitis, right lower lobe pneumonia. Patient had low-grade fevers yesterday as well. Patient is negative for covid 19, hence ruled out, patient is also having alcohol withdrawals and patient is being treated for that. Still having significant wheezing on exam patient will be started on clear liquid diet will give 1 dose of systemic steroids because of his significant wheezing and COPD exacerbation Constitutional: Denied any fatigue denied any fever. Cardio vascular: denied any chest pain, palpitations Gastrointestinal denied any nausea vomiting Pulmonary: He still has shortness of breath but much better on oxygen patient usually doesn't use any onset at home patient is presently on 4 L of oxygen Neurologic denied any new focal deficits All inpatient medications were reviewed and appropriate changes in these medications as dictated in the interval history and assessment and plan. Objective - Vital Signs Vital signs: Vital Signs Temp 99.2 F 07/01/20 09:30 Pulse 98 07/01/20 12:11 Resp 18 07/01/20 09:30 BP 127/76 07/01/20 12:05 Pulse Ox 94 L 07/01/20 09:30 Intake & Output 06/30/20 07/01/20 07/01/20 18:59 06:59 18:59 Other: Voiding Method Urinal # Voids 3 0 - Exam PHYSICAL EXAMINATION: GENERAL: The patient is alert and oriented x3, not in any acute distress. Obese HEENT: Pupils are round and equally reacting to light. EOMI. No scleral icterus. No conjunctival pallor. Normocephalic, atraumatic. No pharyngeal erythema. No thyromegaly. CARDIOVASCULAR: S1 and S2 present. No murmurs, rubs, or gallops. PULMONARY: Decreased air entry with significant expiratory wheezing ABDOMEN: Soft, nontender, nondistended, normoactive bowel sounds. No palpable organomegaly. MUSCULOSKELETAL: No joint swelling or deformity. EXTREMITIES: No cyanosis, clubbing, or pedal edema. NEUROLOGICAL: Gross neurological examination did not reveal new any focal deficits. As have chronic weakness in both legs with atrophy SKIN: No rashes. - Labs CBC & Chem 7: 07/01/20 05:26 07/01/20 05:26 Labs: Abnormal Lab Results - Last 24 Hours (Table) 06/30/20 07/01/20 07/01/20 Range/Units 17:04 05:26 05:26 WBC 11.8 H (3.8-10.6) k/uL RBC 3.66 L (4.30-5.90) m/uL Hgb 11.8 L (13.0-17.5) gm/dL Hct 38.0 L (39.0-53.0) % MCV 103.7 H (80.0-100.0) fL MCHC 30.9 L (31.0-37.0) g/dL RDW 17.6 H (11.5-15.5) % Plt Count 144 L (150-450) k/uL Neutrophils # 10.2 H (1.3-7.7) k/uL Lymphocytes # 0.7 L (1.0-4.8) k/uL Glucose (70-110) mg/dL POC Glucose (mg/dL) 134 H (75-99) mg/dL Calcium (8.7-10.3) mg/dL Lipase 100 H (14-60) U/L Urine Protein (Negative) Urine Bacteria (None) /hpf Urine Mucus (None) /hpf 07/01/20 07/01/20 07/01/20 Range/Units 05:26 06:47 09:20 WBC (3.8-10.6) k/uL RBC (4.30-5.90) m/uL Hgb (13.0-17.5) gm/dL Hct (39.0-53.0) % MCV (80.0-100.0) fL MCHC (31.0-37.0) g/dL RDW (11.5-15.5) % Plt Count (150-450) k/uL Neutrophils # (1.3-7.7) k/uL Lymphocytes # (1.0-4.8) k/uL Glucose 112 H (70-110) mg/dL POC Glucose (mg/dL) 129 H (75-99) mg/dL Calcium 8.1 L (8.7-10.3) mg/dL Lipase (14-60) U/L Urine Protein 1+ H (Negative) Urine Bacteria Rare H (None) /hpf Urine Mucus Rare H (None) /hpf Microbiology - Last 24 Hours (Table) 06/29/20 22:19 Blood Culture - Preliminary Blood No Growth after 24 hours Assessment and Plan Plan: -Acute alcoholic pancreatitis: Patient IV fluids patient was on Lasix at home which will be held did not have any echocardiogram available in from the past although patient is not in clinical heart failure at this time. Patient will be started on clear liquid diet today -Alcohol withdrawal: Continue with Ativan C. diff protocol. -Alcohol abuse: Counseling was provided - left lower lobe pneumonia possibly pneumococcal pneumonia, patient will be started on Rocephin and azithromycin incentive spirometry. Patient had multiple fever episodes -Acute hypoxic and hypercapnic respiratory failure secondary to pneumonia and COPD exacerbation -COPD with acute exacerbation can you with inhalational treatments patient was given a dose of systemic steroids -Generalized weakness PT and OT will evaluate the patient patient is mostly wheelchair bound -Hypovolemic hyponatremia improved with IV fluids -Hypertension -Atrial fibrillation heart rate is better controlled now, continue with anticoagulation
--- NOTE | 2020-07-01 14:51 | CDI ---
Documentation Clarification Form Date: 07/01/2020 CDS: Sharlene FuentesRENATO, CCDS Admit Date: 06/30/2020 Patient Name: Isaiah Styles Discharge Date: ATTENTION: The Clinical Documentation Specialists (CDI) and [facility] Coding Staff appreciate your assistance in clarifying documentation. Please respond to the clarification below the line at the bottom and electronically sign. The CDI & [facility] Coding staff will review the response and follow-up if needed. Please note: Queries are made part of the Legal Health Record. If you have any questions, please contact the author of this message via ITS. Dear Dr. Zoila Carlisle: Atrial Fibrillation is documented in the 06/30 History & Physical: "Atrial fibrillation with rapid ventricular rate alcohol cessation counseling was provided patient will be continued on his rate control medications and anticoagulation, IV fluids and continue to monitor." History/Risk Factors: Atrial Fibrillation, Hypertension, COPD, Wheelchair confined. Smoker. Clinical Indicators: Presented to the ED on 06/29 with Chest pain & Abdominal pain via EMS. Diagnosed with Alcoholic Pancreatitis and Alcohol Withdrawal. Heart Rate: 06/29 121 141^; 06/30 102^; 07/01 90 - 98 EK/14: R 144 sinus tachycardia. Treatment: Vit B1, IV fluid 1,000 mls @ 999 mls/hr, IV Toradol, IV Ativan, IV fluid 1,000 mls @ 100 mls/hr, IV Morphine, po Toprol, po Cordarone. In your professional opinion, can you please clarify the type of Atrial Fibrillation, if known? Chronic/Permanent Paroxysmal Persistent Other, please specify Unable to determine (Last Revision: January 2018) Unable to determine MTDD
[2020-07-01] MEDS: RIVAROXABAN 20 MG TAB PO SCH (16:17)
--- NOTE | 2020-07-01 20:52 | PN ---
PROGRESS NOTE DATE OF DICTATION: 07/01/2020 Patient is a 70-year-old white male with history of heavy alcohol abuse and chronic hepatitis C in the past that was treated, admitted to the hospital with acute pancreatitis and multiple episodes of pancreatitis in the past related to alcohol use. He is feeling better today. Abdominal pain is improving. Lipase has decreased. No nausea or vomiting. On a clear liquid diet, tolerating well. No fever, chills or night sweats. PHYSICAL EXAMINATION: Appears comfortable. No apparent distress. Vital signs are stable. Blood pressure is 112/82, pulse rate 86 per minute and afebrile. HEENT examination unremarkable. Conjunctivae pink. Sclerae anicteric. Oral cavity no lesions. NECK: No JVD or lymph node enlargement. CHEST: Clear to auscultation. HEART: Regular rate and rhythm. ABDOMEN: Soft. Tenderness in the epigastric and right upper quadrant areas. Rest of the abdomen is benign. EXTREMITIES: No pedal edema. SKIN: No rashes. NEUROLOGIC: Alert and oriented x3. No focal deficits. LABS: Labs from today show lipase is down to 100, amylase is 87. Basic metabolic panel is normal. WBC 11.8, hemoglobin 11.8, platelets are 144. IMPRESSION: 1. Acute on chronic pancreatitis related to alcohol abuse. Lipase is gradually improving. Patient on a clear liquid diet, tolerating well. Still has some epigastric pain. 2. Leukocytosis secondary to acute pancreatitis. 3. History of heavy alcohol abuse for 40 years' duration. RECOMMENDATIONS: 1. Continue with a clear liquid diet today. 2. Continue with Protonix and antiemetics as needed. 3. Repeat labs in the morning. 4. Will advance diet to a low-fat diet tomorrow based on his clinical symptoms. 5. Will follow with you closely. Thank you for this consultation. MMODL / IJN: [id number] /
[2020-07-02] MEDS: SODIUM CHLORIDE 0.9% 1,000 ML IV SCH ×2 (00:42→10:10)
[2020-07-02] MEDS: THIAMINE 100 MG TAB PO SCH ×3 (07:34→17:57)
[2020-07-02] MEDS: LEVOTHYROXINE 25 MCG TAB PO SCH (07:34)
[2020-07-02] MEDS: BUDESONIDE 0.5 MG/2 ML NEBU INHALATION SCH ×2 (08:03→20:36)
[2020-07-02] MEDS: IPRATROPIUM-ALBUTEROL 3 ML NEB INHALATION SCH ×4 (08:03→20:36)
[2020-07-02] MEDS: AZITHROMYCIN 500 MG TAB PO SCH (09:44)
[2020-07-02] MEDS: AMIODARONE 200 MG TAB PO SCH (09:44)
[2020-07-02] MEDS: GABAPENTIN 400 MG CAP PO SCH ×2 (09:44→21:08)
[2020-07-02] MEDS: PANTOPRAZOLE 40 MG/10 ML VIAL IVP SCH ×2 (09:45→21:08)
[2020-07-02] MEDS: METOPROLOL SUCCINATE (ER) 50 MG TAB.ER.24H PO SCH (09:45)
[2020-07-02] MEDS: HYDROCORTISONE 2.5% RECTAL CREAM 30 GM TUBE RECTAL SCH (10:08)
[2020-07-02] MEDS: HYDROcodone/APAP 5-325MG 1 EACH TAB PO PRN ×2 (10:49→17:55)
[2020-07-02 11:23] LABS: Anisocytosis Slight; HGB 11.3 gm/dL (13.0-17.5); Hypochromasia Slight; MCH 32.5 pg (25.0-35.0); MCHC 31.4 g/dL (31.0-37.0); MCV 103.5 fL (80.0-100.0); Macrocytosis Moderate; Mean Platelet Volume 8.2; Platelet Count 137 k/uL (150-450); RBC 3.48 m/uL (4.30-5.90); RDW 17.3 % (11.5-15.5); WBC 10.8 k/uL (3.8-10.6)
--- NOTE | 2020-07-02 11:43 | P.PN ---
Subjective Patient is being treated for alcoholic pancreatitis, right lower lobe pneumonia. Patient had low-grade fevers yesterday as well. Patient is negative for covid 19, hence ruled out, patient is also having alcohol withdrawals and patient is being treated for that. Still having significant wheezing on exam patient will be started on clear liquid diet will give 1 dose of systemic steroids because of his significant wheezing and COPD exacerbation 07/02/2020 Patient is able to tolerate the liquid diet very well which will be advanced today. Patient's wheezing did improve Unzen requirements did improve. Patient blood pressure is still low normal. Patient doesn't have any significant withdrawals at this time Constitutional: Denied any fatigue denied any fever. Cardio vascular: denied any chest pain, palpitations Gastrointestinal denied any nausea vomiting Pulmonary: Shortness of breath improved Neurologic denied any new focal deficits All inpatient medications were reviewed and appropriate changes in these medications as dictated in the interval history and assessment and plan. Objective - Vital Signs Vital signs: Vital Signs Temp 98.1 F 07/02/20 07:45 Pulse 81 07/02/20 10:20 Resp 18 07/02/20 10:20 BP 113/72 07/02/20 10:20 Pulse Ox 98 07/02/20 10:20 Intake & Output 07/01/20 07/02/20 07/02/20 18:59 06:59 18:59 Output Total 400 Balance -400 Output: Urine 400 Other: Voiding Method Urinal Urinal Urinal # Voids 2 2 - Exam PHYSICAL EXAMINATION: GENERAL: The patient is alert and oriented x3, not in any acute distress. Obese HEENT: Pupils are round and equally reacting to light. EOMI. No scleral icterus. No conjunctival pallor. Normocephalic, atraumatic. No pharyngeal erythema. No thyromegaly. CARDIOVASCULAR: S1 and S2 present. No murmurs, rubs, or gallops. PULMONARY: Wheezing improved is still mild wheezing and decreased air entry into bilateral lung richards ABDOMEN: Soft, nontender, nondistended, normoactive bowel sounds. No palpable organomegaly. MUSCULOSKELETAL: No joint swelling or deformity. EXTREMITIES: No cyanosis, clubbing, or pedal edema. NEUROLOGICAL: Gross neurological examination did not reveal new any focal deficits. As have chronic weakness in both legs with atrophy SKIN: No rashes. - Labs CBC & Chem 7: 07/02/20 10:48 07/01/20 05:26 Labs: Abnormal Lab Results - Last 24 Hours (Table) 07/01/20 07/02/20 Range/Units 05:26 10:48 WBC 10.8 H (3.8-10.6) k/uL RBC 3.48 L (4.30-5.90) m/uL Hgb 11.3 L (13.0-17.5) gm/dL Hct 36.0 L (39.0-53.0) % MCV 103.5 H (80.0-100.0) fL RDW 17.3 H (11.5-15.5) % Plt Count 137 L (150-450) k/uL Glucose 112 H (70-110) mg/dL Calcium 8.1 L (8.7-10.3) mg/dL Microbiology - Last 24 Hours (Table) 06/29/20 22:19 Blood Culture - Preliminary Blood No Growth after 48 hours Assessment and Plan Plan: -Acute alcoholic pancreatitis: We'll cut down the IV fluids His diet is being advanced at this time -Alcohol withdrawal: Continue with Ativan CIWA protocol. -Alcohol abuse: Counseling was provided - left lower lobe pneumonia possibly pneumococcal pneumonia, patient will be started on Rocephin and azithromycin incentive spirometry. Patient had multiple fever episodes -Acute hypoxic and hypercapnic respiratory failure secondary to pneumonia and COPD exacerbation, improving patient is according to read as as opposed to 4 L on admission -COPD with acute exacerbation can you with inhalational treatments -Generalized weakness PT and OT will evaluate the patient patient is mostly wheelchair bound -Hypovolemic hyponatremia improved with IV fluids -Hypertension -Atrial fibrillation heart rate is better controlled now, continue with anticoagulation
--- NOTE | 2020-07-02 13:03 | P.PN ---
Subjective Progress Note Date: 07/02/20 Principal diagnosis: Pancreatitis This is 70-year-old male with multiple medical comorbidities who came in with acute on chronic pancreatitis. He has had previous episodes of pancreatitis secondary to alcohol abuse. The patient has a history of alcohol abuse who admits to drinking a fifth a day, hepatitis C which was treated with interferon and ribavirin. The patient was seen and examined at the bedside. He was started on clear liquid yesterday and states he is tolerating that well. He states his abdominal pain has improved or has overall chronic pain. Denies any nausea or vomiting. Labs are pending. Objective - Vital Signs Vital signs: Vital Signs Temp 98.1 F 07/02/20 07:45 Pulse 81 07/02/20 10:20 Resp 18 07/02/20 10:20 BP 113/72 07/02/20 10:20 Pulse Ox 98 07/02/20 10:20 Intake & Output 07/01/20 07/02/20 07/02/20 18:59 06:59 18:59 Output Total 400 Balance -400 Output: Urine 400 Other: Voiding Method Urinal Urinal Urinal # Voids 2 2 - Exam On physical examination, patient appears comfortable in no apparent distress. HEAD: Normocephalic, atraumatic. EYES: No scleral icterus. No conjunctival injection. MOUTH: No lesions, tongue midline. NECK: Trachea midline, no gross abnormalities. CHEST: Decreased air entry in all richards. HEART: S1-S2 appreciated. ABDOMEN: Soft, obese, mild tenderness to palpation in epigastric region. Bowel sounds are positive. No organomegaly. No guarding or rigidity. EXTREMITIES: No pedal edema. SKIN: No rashes, no jaundice. NEUROLOGIC: Alert and oriented x3. No focal deficits. - Labs CBC & Chem 7: 07/02/20 10:48 07/01/20 05:26 Labs: Abnormal Lab Results - Last 24 Hours (Table) 07/02/20 Range/Units 10:48 WBC 10.8 H (3.8-10.6) k/uL RBC 3.48 L (4.30-5.90) m/uL Hgb 11.3 L (13.0-17.5) gm/dL Hct 36.0 L (39.0-53.0) % MCV 103.5 H (80.0-100.0) fL RDW 17.3 H (11.5-15.5) % Plt Count 137 L (150-450) k/uL Microbiology - Last 24 Hours (Table) 06/29/20 22:19 Blood Culture - Preliminary Blood No Growth after 48 hours Assessment and Plan Assessment: (1) Acute on chronic pancreatitis Narrative/Plan: 70-year-old male with a known history of alcohol abuse, prior episodes of pancreatitis, hepatitis C for which he received treatment with ribavirin and interferon who presented to the hospital due to concerns of abdominal pain. Computed tomography scan of the abdomen at [facility] showed changes consistent with acute on chronic pancreatitis with pseudocyst formation. Lipase elevated at 1368 on presentation. Patient actively drinks alcohol approximately pint of liquor daily. Current Visit: Yes Status: Acute Code(s): K85.90 - ACUTE PANCREATITIS WITHOUT NECROSIS OR INFECTION, UNSP; K86.1 - OTHER CHRONIC PANCREATITIS SNOMED Code(s): 021318541 (2) Alcohol abuse Current Visit: Yes Status: Acute Code(s): F10.10 - ALCOHOL ABUSE, UNCOMPLICATED SNOMED Code(s): 49322315 (3) Epigastric pain Current Visit: Yes Status: Acute Code(s): R10.13 - EPIGASTRIC PAIN SNOMED Code(s): 82590854 (4) Pancreatic cyst Current Visit: Yes Status: Acute Code(s): K86.2 - CYST OF PANCREAS SNOMED Code(s): 64272884 Plan: Supportive care Advance to low fat diet Continue IV fluid hydration, one additional liter of lactated Ringer's ordered Continue pain control Alcohol abstinence Continue to monitor and treat for signs or symptoms of alcohol withdrawal Thank you for allowing us to participate in the care of the patient we will continue to follow The impression and plan of care has been dictated as directed. Dr. Raven Alvarez I performed a history and examination of this patient, discussed the same with the dictator. I agree with the dictator's note ,documented as a scribe. Any additional findings or plans will be noted.
[2020-07-02 17:43] LABS: African American GFR (CKD) 103.4 (60.0-200.0); Albumin/Globulin Ratio 1.58 (1.60-3.17); Anion Gap 7.2 mmol/L (4.00-12.00); BUN/Creat Ratio 12.5 Ratio (12.00-20.00); Calcium 8.3 mg/dL (8.7-10.3); Carbon Dioxide 23.8 mmol/L (21.6-31.8); Globulin 1.9 g/dL (1.6-3.3); Non-African American GFR(CKD) 89.2 (60.0-200.0); Potassium 4.5 mmol/L (3.5-5.5); Total Bilirubin 0.4 mg/dL (0.2-1.2); Total Protein 4.9 g/dL (6.2-8.2)
[2020-07-02] MEDS: RIVAROXABAN 20 MG TAB PO SCH (17:56)
[2020-07-03] MEDS: HYDROcodone/APAP 5-325MG 1 EACH TAB PO PRN ×4 (00:02→17:21)
[2020-07-03] MEDS: HYDROCORTISONE 2.5% RECTAL CREAM 30 GM TUBE RECTAL SCH ×3 (04:42→20:17)
[2020-07-03] MEDS: SODIUM CHLORIDE 0.9% 1,000 ML IV SCH ×2 (04:42→07:25)
[2020-07-03 06:20] LABS: Anisocytosis Slight; HCT 34.2 % (39.0-53.0); HGB 10.9 gm/dL (13.0-17.5); Hypochromasia Slight; MCH 32.4 pg (25.0-35.0); MCV 101.2 fL (80.0-100.0); Macrocytosis Slight; Mean Platelet Volume 7.6; Platelet Count 126 k/uL (150-450); RBC 3.38 m/uL (4.30-5.90); RDW 17.3 % (11.5-15.5); WBC 7.2 k/uL (3.8-10.6)
[2020-07-03] MEDS: LEVOTHYROXINE 25 MCG TAB PO SCH (07:29)
[2020-07-03] MEDS: THIAMINE 100 MG TAB PO SCH ×3 (07:31→17:19)
[2020-07-03] MEDS: BUDESONIDE 0.5 MG/2 ML NEBU INHALATION SCH ×3 (08:28→21:45)
[2020-07-03] MEDS: IPRATROPIUM-ALBUTEROL 3 ML NEB INHALATION SCH ×4 (08:28→20:04)
[2020-07-03 09:17] LABS: African American GFR (CKD) 103.4 (60.0-200.0); Anion Gap 5.3 mmol/L (4.00-12.00); BUN/Creat Ratio 12.5 Ratio (12.00-20.00); Calcium 8.3 mg/dL (8.7-10.3); Carbon Dioxide 24.7 mmol/L (21.6-31.8); Non-African American GFR(CKD) 89.2 (60.0-200.0); Potassium 4.5 mmol/L (3.5-5.5)
[2020-07-03] MEDS: AMIODARONE 200 MG TAB PO SCH (09:58)
[2020-07-03] MEDS: METOPROLOL SUCCINATE (ER) 50 MG TAB.ER.24H PO SCH (09:58)
[2020-07-03] MEDS: AZITHROMYCIN 500 MG TAB PO SCH (10:00)
[2020-07-03] MEDS: GABAPENTIN 400 MG CAP PO SCH ×2 (10:01→20:15)
[2020-07-03] MEDS: PANTOPRAZOLE 40 MG/10 ML VIAL IVP SCH ×2 (10:02→20:15)
--- NOTE | 2020-07-03 13:18 | P.PN ---
Subjective Patient is being treated for alcoholic pancreatitis, right lower lobe pneumonia. Patient had low-grade fevers yesterday as well. Patient is negative for covid 19, hence ruled out, patient is also having alcohol withdrawals and patient is being treated for that. Still having significant wheezing on exam patient will be started on clear liquid diet will give 1 dose of systemic steroids because of his significant wheezing and COPD exacerbation 07/02/2020 Patient is able to tolerate the liquid diet very well which will be advanced today. Patient's wheezing did improve Unzen requirements did improve. Patient blood pressure is still low normal. Patient doesn't have any significant withdrawals at this time 07/03/2020 Reviewed overnight events patient overall clinical condition did improve patient is awaiting disposition to subacute rehabitation probably tomorrow him IV fluids will be discontinued patient is still on oxygen patient is afebrile Constitutional: Denied any fatigue denied any fever. Cardio vascular: denied any chest pain, palpitations Gastrointestinal denied any nausea vomiting Pulmonary: Shortness of breath improved Neurologic denied any new focal deficits All inpatient medications were reviewed and appropriate changes in these medications as dictated in the interval history and assessment and plan. Objective - Vital Signs Vital signs: Vital Signs Temp 98.3 F 07/03/20 11:48 Pulse 95 07/03/20 11:48 Resp 18 07/03/20 11:48 BP 138/74 07/03/20 11:48 Pulse Ox 96 07/03/20 11:48 Intake & Output 07/02/20 07/03/20 07/03/20 18:59 06:59 18:59 Intake Total 296 1000 Output Total 800 Balance -504 1000 Intake: Intake, IV Titration 1000 Amount Sodium Chloride 0.9% 1, 1000 000 ml @ 100 mls/hr IV . Q[facility]H [facility] Rx#:[id number] Oral 296 Output: Urine 800 Other: Voiding Method Urinal # Voids 3 2 1 # Bowel Movements 1 - Exam PHYSICAL EXAMINATION: GENERAL: The patient is alert and oriented x3, not in any acute distress. Obese HEENT: Pupils are round and equally reacting to light. EOMI. No scleral icterus. No conjunctival pallor. Normocephalic, atraumatic. No pharyngeal erythema. No thyromegaly. CARDIOVASCULAR: S1 and S2 present. No murmurs, rubs, or gallops. PULMONARY: Wheezing improved is still mild wheezing and decreased air entry into bilateral lung richards ABDOMEN: Soft, nontender, nondistended, normoactive bowel sounds. No palpable organomegaly. MUSCULOSKELETAL: No joint swelling or deformity. EXTREMITIES: No cyanosis, clubbing, or pedal edema. NEUROLOGICAL: Gross neurological examination did not reveal new any focal deficits. As have chronic weakness in both legs with atrophy SKIN: No rashes. - Labs CBC & Chem 7: 07/03/20 05:52 07/03/20 05:52 Labs: Abnormal Lab Results - Last 24 Hours (Table) 07/02/20 07/03/20 07/03/20 Range/Units 10:48 05:52 05:52 RBC 3.38 L (4.30-5.90) m/uL Hgb 10.9 L (13.0-17.5) gm/dL Hct 34.2 L (39.0-53.0) % MCV 101.2 H (80.0-100.0) fL RDW 17.3 H (11.5-15.5) % Plt Count 126 L (150-450) k/uL Glucose 138 H (70-110) mg/dL Calcium 8.3 L 8.3 L (8.7-10.3) mg/dL Total Protein 4.9 L (6.2-8.2) g/dL Albumin 3.00 L (3.80-4.90) g/dL Albumin/Globulin Ratio 1.58 L (1.60-3.17) g/dL Microbiology - Last 24 Hours (Table) 06/29/20 22:19 Blood Culture - Preliminary Blood No Growth after 72 hours Assessment and Plan Plan: -Acute alcoholic pancreatitis: Patient is tolerating diet well IV fluids were discontinued -Alcohol withdrawal: Patient was on Ativan CIWA protocol. No more withdrawals at this time -Alcohol abuse: - left lower lobe pneumonia possibly pneumococcal pneumonia, patient will be started on Rocephin and azithromycin incentive spirometry. Patient had multiple fever episodes -Acute hypoxic and hypercapnic respiratory failure secondary to pneumonia and COPD exacerbation, improving patient is according to read as as opposed to 4 L on admission. Patient is pleasant and weakness of oxygen patient does use oxygen on as-needed basis at home -COPD with acute exacerbation can you with inhalational treatments -Generalized weakness PT and OT will evaluate the patient patient is mostly wheelchair bound -Hypovolemic hyponatremia improved with IV fluids -Hypertension -Atrial fibrillation heart rate is better controlled now, continue with anticoagulation -Chronic hep C
[2020-07-03] MEDS: LORazepam 2 MG/ML INJ IV PRN (13:41)
--- NOTE | 2020-07-03 15:13 | P.PN ---
Subjective Progress Note Date: 07/03/20 Principal diagnosis: Pancreatitis Patient was seen and examined at the bedside. Patient was standing up at the bedside with assistance from physical therapy. Patient seemed very unsteady on his feet. Patient states he's been having diarrhea has started yesterday evening and complaints of 3-4 episodes today. He describes it as loose but not watery. He denies any fevers or chills. States his abdominal and epigastric pain has improved significantly. He is tolerating a regular diet. Objective - Vital Signs Vital signs: Vital Signs Temp 98.5 F 07/03/20 15:00 Pulse 92 07/03/20 15:00 Resp 18 07/03/20 15:00 BP 147/85 07/03/20 15:00 Pulse Ox 95 07/03/20 15:00 Intake & Output 07/02/20 07/03/20 07/03/20 18:59 06:59 18:59 Intake Total 296 1000 240 Output Total 800 Balance -504 1000 240 Intake: Intake, IV Titration 1000 Amount Sodium Chloride 0.9% 1, 1000 000 ml @ 100 mls/hr IV . Q10H [facility] Rx#:[id number] Oral 296 240 Output: Urine 800 Other: Voiding Method Urinal # Voids 3 2 1 # Bowel Movements 1 - Exam On physical examination, patient appears comfortable in no apparent distress. HEAD: Normocephalic, atraumatic. EYES: No scleral icterus. No conjunctival injection. MOUTH: No lesions, tongue midline. NECK: Trachea midline, no gross abnormalities. CHEST: Decreased air entry in all richards. HEART: S1-S2 appreciated. ABDOMEN: Soft, obese, mild tenderness to palpation in epigastric region. Bowel sounds are positive. No organomegaly. No guarding or rigidity. EXTREMITIES: No pedal edema. SKIN: No rashes, no jaundice. NEUROLOGIC: Alert and oriented x3. No focal deficits. - Labs CBC & Chem 7: 07/03/20 05:52 07/03/20 05:52 Labs: Abnormal Lab Results - Last 24 Hours (Table) 07/02/20 07/03/20 07/03/20 Range/Units 10:48 05:52 05:52 RBC 3.38 L (4.30-5.90) m/uL Hgb 10.9 L (13.0-17.5) gm/dL Hct 34.2 L (39.0-53.0) % MCV 101.2 H (80.0-100.0) fL RDW 17.3 H (11.5-15.5) % Plt Count 126 L (150-450) k/uL Glucose 138 H (70-110) mg/dL Calcium 8.3 L 8.3 L (8.7-10.3) mg/dL Total Protein 4.9 L (6.2-8.2) g/dL Albumin 3.00 L (3.80-4.90) g/dL Albumin/Globulin Ratio 1.58 L (1.60-3.17) g/dL Microbiology - Last 24 Hours (Table) 06/29/20 22:19 Blood Culture - Preliminary Blood No Growth after 72 hours Assessment and Plan Assessment: (1) Acute on chronic pancreatitis Narrative/Plan: 70-year-old male with a known history of alcohol abuse, prior episodes of pa ncreatitis, hepatitis C for which he received treatment with ribavirin and interferon who presented to the hospital due to concerns of abdominal pain. Computed tomography scan of the abdomen at [facility] showed changes consistent with acute on chronic pancreatitis with pseudocyst formation. Lipase elevated at 1368 on presentation. Patient actively drinks alcohol approximately pint of liquor daily. Current Visit: Yes Status: Acute Code(s): K85.90 - ACUTE PANCREATITIS WITHOUT NECROSIS OR INFECTION, UNSP; K86.1 - OTHER CHRONIC PANCREATITIS SNOMED Code(s): 411839281 (2) Alcohol abuse Current Visit: Yes Status: Acute Code(s): F10.10 - ALCOHOL ABUSE, UNCOMPLICATED SNOMED Code(s): 54244024 (3) Epigastric pain Current Visit: Yes Status: Acute Code(s): R10.13 - EPIGASTRIC PAIN SNOMED Code(s): 15828825 (4) Pancreatic cyst Current Visit: Yes Status: Acute Code(s): K86.2 - CYST OF PANCREAS SNOMED Code(s): 79120849 Plan: Supportive care Advance to low fat diet Continue IV fluid hydration Continue pain control Alcohol abstinence Continue to monitor and treat for signs or symptoms of alcohol withdrawal Patient may be discharged from a gastroenterology standpoint once medically cleared Discussed with patient to continue a low-fat diet, small meals Thank you for allowing us to participate in the care of the patient we will continue to follow The impression and plan of care has been dictated as directed. Dr. Raven Alvarez I performed a history and examination of this patient, discussed the same with the dictator. I agree with the dictator's note ,documented as a scribe. Any additional findings or plans will be noted.
[2020-07-03] MEDS: RIVAROXABAN 20 MG TAB PO SCH (17:19)
[2020-07-04] MEDS: HYDROcodone/APAP 5-325MG 1 EACH TAB PO PRN ×3 (00:05→17:08)
[2020-07-04] MEDS: LEVOTHYROXINE 25 MCG TAB PO SCH (07:13)
[2020-07-04] MEDS: THIAMINE 100 MG TAB PO SCH ×3 (07:14→17:06)
[2020-07-04 07:24] VITALS: RESP 18
[2020-07-04] MEDS: IPRATROPIUM-ALBUTEROL 3 ML NEB INHALATION SCH ×3 (09:06→15:49)
[2020-07-04] MEDS: BUDESONIDE 0.5 MG/2 ML NEBU INHALATION SCH (09:06)
[2020-07-04] MEDS: AMIODARONE 200 MG TAB PO SCH (09:30)
[2020-07-04] MEDS: PANTOPRAZOLE 40 MG/10 ML VIAL IVP SCH (09:35)
[2020-07-04] MEDS: AZITHROMYCIN 500 MG TAB PO SCH (09:41)
[2020-07-04] MEDS: GABAPENTIN 400 MG CAP PO SCH (09:41)
[2020-07-04] MEDS: HYDROCORTISONE 2.5% RECTAL CREAM 30 GM TUBE RECTAL SCH (09:43)
[2020-07-04] MEDS: METOPROLOL SUCCINATE (ER) 50 MG TAB.ER.24H PO SCH (09:49)
--- NOTE | 2020-07-04 14:07 | P.PN ---
Subjective Progress Note Date: 07/04/20 Principal diagnosis: Pancreatitis Patient was seen and examined at the bedside. Patient states he's been having diarrhea, describes as loose but not watery. Denies any blood in the stool. He states he had one episode through the night, none this morning. He describes it as loose but not watery. He denies any fevers or chills. States his abdominal and epigastric pain has improved significantly. He is tolerating a regular diet. Objective - Vital Signs Vital signs: Vital Signs Temp 98.4 F 07/04/20 06:54 Pulse 104 H 07/04/20 12:46 Resp 18 07/04/20 06:54 BP 122/73 07/04/20 06:54 Pulse Ox 97 07/04/20 06:54 Intake & Output 07/03/20 07/04/20 07/04/20 18:59 06:59 18:59 Intake Total 720 Output Total 800 Balance 720 -800 Intake: Oral 720 Output: Urine 800 Other: Voiding Method Urinal # Voids 4 2 1 # Bowel Movements 1 - Exam On physical examination, patient appears comfortable in no apparent distress. HEAD: Normocephalic, atraumatic. EYES: No scleral icterus. No conjunctival injection. MOUTH: No lesions, tongue midline. NECK: Trachea midline, no gross abnormalities. CHEST: Decreased air entry in all richards. HEART: S1-S2 appreciated. ABDOMEN: Soft, obese, mild tenderness to palpation in epigastric region. Bowel sounds are positive. No organomegaly. No guarding or rigidity. EXTREMITIES: No pedal edema. SKIN: No rashes, no jaundice. NEUROLOGIC: Alert and oriented x3. No focal deficits. - Labs CBC & Chem 7: 07/03/20 05:52 07/03/20 05:52 Labs: Microbiology - Last 24 Hours (Table) 06/29/20 22:19 Blood Culture - Preliminary Blood No Growth after 96 hours Assessment and Plan Assessment: (1) Acute on chronic pancreatitis Narrative/Plan: 70-year-old male with a known history of alcohol abuse, prior episodes of pancreatitis, hepatitis C for which he received treatment with ribavirin and interferon who presented to the hospital due to concerns of abdominal pain. Computed tomography scan of the abdomen at [facility] showed changes consistent with acute on chronic pancreatitis with pseudocyst formation. Lipase elevated at 1368 on presentation. Patient actively drinks alcohol approximately pint of liquor daily. Current Visit: Yes Status: Acute Code(s): K85.90 - ACUTE PANCREATITIS WITHOUT NECROSIS OR INFECTION, UNSP; K86.1 - OTHER CHRONIC PANCREATITIS SNOMED Code(s): 226886221 (2) Alcohol abuse Current Visit: Yes Status: Acute Code(s): F10.10 - ALCOHOL ABUSE, UNCOMP LICATED SNOMED Code(s): 79576131 (3) Epigastric pain Current Visit: Yes Status: Acute Code(s): R10.13 - EPIGASTRIC PAIN SNOMED Code(s): 90664620 (4) Pancreatic cyst Current Visit: Yes Status: Acute Code(s): K86.2 - CYST OF PANCREAS SNOMED Code(s): 47853982 (1) Diarrhea Narrative/Plan: Diarrhea for the last 2 days duration, 3-4 episodes per day. Describes as loose watery. C. diff studies ordered. Sample has not been collected as of yet. Etiology may be related to antibiotic therapy. Further recommendation based on stool studies. Current Visit: Yes Status: Acute Code(s): R19.7 - DIARRHEA, UNSPECIFIED SNOMED Code(s): 00142354 Plan: Supportive care Advance to low fat diet Continue IV fluid hydration Continue pain control Alcohol abstinence Continue to monitor and treat for signs or symptoms of alcohol withdrawal Patient may be discharged from a gastroenterology standpoint once medically cleared Discussed with patient to continue a low-fat diet, small meals C-Difficlie toxin stool study ordered, pending results Thank you for allowing us to participate in the care of the patient we will continue to follow The impression and plan of care has been dictated as directed. Dr. Raven Alvarez I performed a history and examination of this patient, discussed the same with the dictator. I agree with the dictator's note ,documented as a scribe. Any additional findings or plans will be noted.
[2020-07-04 14:42] VITALS: BP 134/76; TEMP 98.3
--- NOTE | 2020-07-04 14:45 | P.DS ---
Providers Date of admission: 06/30/20 00:02 Attending physician: Camryn Jimenez Consults: 06/29/20 22:16 Consult Physician Routine Consulting Provider: Everett Romeo Consult Reason/Comments: acute on chronic pancreatitis, ETOH hx Do you want consulting provider notified?: Yes Primary care physician: Physician Nonstaff Hospital Course: Patient is being treated for alcoholic pancreatitis, right lower lobe pneumonia. Patient had low-grade fevers yesterday as well. Patient is negative for covid 19, hence ruled out, patient is also having alcohol withdrawals and patient is being treated for that. Still having significant wheezing on exam patient will be started on clear liquid diet will give 1 dose of systemic steroids because of his significant wheezing and COPD exacerbation 07/02/2020 Patient is able to tolerate the liquid diet very well which will be advanced today. Patient's wheezing did improve [place] requirements did improve. Patient blood pressure is still low normal. Patient doesn't have any significant withdrawals at this time 07/03/2020 Reviewed overnight events patient overall clinical condition did improve patient is awaiting disposition to subacute rehabitation probably tomorrow him IV fluids will be discontinued patient is still on oxygen patient is afebrile 07/04/2020 Patient was having normal diarrhea C. diff was ordered as of which are pending but patient will be discharged today after those C. diff results. Patient is more appropriate for subacute rehabilitation although case management and social work was unable to find a subacute rehabitation that would accept him and reapproved home care, patient will be discharged home with home care his respiratory status improved patient will be discharged on 3 more days of Ceftin and cutting down his Lasix as patient came in with acute renal failure improved with IV fluids. Patient doesn't have any systolic dysfunction unsure whether he had a diastolic dysfunction. Patient is presently requiring 2 L of onset and which she uses on as-needed basis at home. Patient's pancreatitis improved. Hyponatremia improved PHYSICAL EXAMINATION: GENERAL: The patient is alert and oriented x3, not in any acute distress. Obese HEENT: Pupils are round and equally reacting to light. EOMI. No scleral icterus. No conjunctival pallor. Normocephalic, atraumatic. No pharyngeal erythema. No thyromegaly. CARDIOVASCULAR: S1 and S2 present. No murmurs, rubs, or gallops. PULMONARY: Wheezing improved is still mild wheezing and decreased air entry into bilateral lung richards ABDOMEN: Soft, nontender, nondistended, normoactive bowel sounds. No palpable organomegaly. MUSCULOSKELETAL: No joint swelling or deformity. EXTREMITIES: No cyanosis, clubbing, or pedal edema. NEUROLOGICAL: Gross neurological examination did not reveal new any focal deficits. As have chronic weakness in both legs with atrophy SKIN: No rashes. Assessment and Plan Plan: -Acute alcoholic pancreatitis: Resolved at this time -Alcohol withdrawal: Patient was on Ativan CIWA protocol. No more withdrawals at this time -Alcohol abuse: No stent was provided - left lower lobe pneumonia possibly pneumococcal pneumonia, patient will be discharged on Ceftin -Acute hypoxic and hypercapnic respiratory failure secondary to pneumonia and COPD exacerbation, presently on 2 L which he uses at home -COPD with acute exacerbation can you with inhalational treatments -Generalized weakness patient patient is mostly wheelchair bound, patient is being discharged home with home care -Hypovolemic hyponatremia improved with IV fluids -Hypertension -Atrial fibrillation heart rate is better controlled now, continue with anticoagulation -Chronic hep C Patient Condition at Discharge: Stable Plan - Discharge Summary Discharge Rx Participant: No New Discharge Prescriptions: New Hydrocortisone Pr Cream [Proctosol-Hc 2.5%] 1 applic RECTAL BID #30 applic Fluticasone/Salmeterol [Advair 250-50 Diskus] 1 inhalation PO BID #1 inhaler Cefuroxime Axetil [Ceftin] 500 mg PO BID 4 Days #8 tab Tiotropium [place] [Spiriva] 1 cap INHALATION DAILY #1 device Albuterol Inhaler [Ventolin Hfa Inhaler] 2 puff INHALATION RT-QID PRN #1 inhaler PRN Reason: Shortness Of Breath Or Wheezing Continue Amiodarone HCl [Pacerone] 200 mg PO DAILY Rivaroxaban [Xarelto] 20 mg PO AC-SUPPER Omeprazole [PriLOSEC] 20 mg PO BID Levothyroxine Sodium [Synthroid] 25 mcg PO AC-BRKFST Gabapentin [Neurontin] 800 mg PO BID Thiamine [Vitamin B-1] 100 mg PO DAILY #30 tab Carboxymethylcellulose Sodium [Refresh Tears] 1 drop BOTH EYES BID HYDROcodone/APAP 5-325MG [[place] 5-325] 1 tab PO Q6H PRN PRN Reason: Pain Changed Potassium Chloride [Klor-Con 20] 10 meq PO DAILY #0 Furosemide [Lasix] 40 mg PO DAILY #0 Metoprolol Succinate (ER) [Toprol XL] 50 mg PO DAILY #0 Discontinued Spironolactone [Aldactone] 25 mg PO DAILY lisinopriL [Zestril] 2.5 mg PO DAILY Discharge Medication List Amiodarone HCl [Pacerone] 200 mg PO DAILY 08/03/18 [History] Rivaroxaban [Xarelto] 20 mg PO AC-SUPPER 08/03/18 [History] Gabapentin [Neurontin] 800 mg PO BID 11/27/18 [History] Levothyroxine Sodium [Synthroid] 25 mcg PO AC-BRKFST 11/27/18 [History] Omeprazole [PriLOSEC] 20 mg PO BID 11/27/18 [History] Thiamine [Vitamin B-1] 100 mg PO DAILY #30 tab 11/28/18 [Rx] Carboxymethylcellulose Sodium [Refresh Tears] 1 drop BOTH EYES BID 06/29/20 [History] HYDROcodone/APAP 5-325MG [[place] 5-325] 1 tab PO Q6H PRN 06/29/20 [History] Albuterol Inhaler [Ventolin Hfa Inhaler] 2 puff INHALATION RT-QID PRN #1 inhaler 07/04/20 [Rx] Cefuroxime Axetil [Ceftin] 500 mg PO BID 4 Days #8 tab 07/04/20 [Rx] Fluticasone/Salmeterol [Advair 250-50 Diskus] 1 inhalation PO BID #1 inhaler 07/04/20 [Rx] Furosemide [Lasix] 40 mg PO DAILY #0 07/04/20 [Rx] Hydrocortisone Pr Cream [Proctosol-Hc 2.5%] 1 applic RECTAL BID #30 applic 07/04/20 [Rx] Metoprolol Succinate (ER) [Toprol XL] 50 mg PO DAILY #0 07/04/20 [Rx] Potassium Chloride [Klor-Con 20] 10 meq PO DAILY #0 07/04/20 [Rx] Tiotropium [place] [Spiriva] 1 cap INHALATION DAILY #1 device 07/04/20 [Rx] Follow up Appointment(s)/Referral(s): [facility],Clinic [REFERRING] - 3 Days Activity/Diet/Wound Care/Special Instructions: [facility] Care [facility] by [facility] if [facility] have [facility] questions.
[2020-07-04 15:35] VITALS: PULSE 88
[2020-07-04] MEDS: RIVAROXABAN 20 MG TAB PO SCH (17:06)
== END 2020-07-04 19:09 | disposition home health service (06) | DRG 438 ==
LOC: EC 21:45 → 4SSUR 06-30 00:02
PROVIDERS: ADMIT Hospitalist; ATTEND Hospitalist
DX: K85.20 Alcohol induced acute pancreatitis without necrosis or infection (principal); J96.02 Acute respiratory failure with hypercapnia; J13 Pneumonia due to Streptococcus pneumoniae; J96.01 Acute respiratory failure with hypoxia; E87.2 Acidosis; F10.239 Alcohol dependence with withdrawal, unspecified; E87.1 Hypo-osmolality and hyponatremia; J44.0 Chronic obstructive pulmonary disease with (acute) lower respiratory infection; J44.1 Chronic obstructive pulmonary disease with (acute) exacerbation; K86.3 Pseudocyst of pancreas; I48.91 Unspecified atrial fibrillation; Z20.828 Contact with and (suspected) exposure to other viral communicable diseases; M19.90 Unspecified osteoarthritis, unspecified site; I10 Essential (primary) hypertension; G89.29 Other chronic pain; F17.200 Nicotine dependence, unspecified, uncomplicated; K74.60 Unspecified cirrhosis of liver; Y90.6 Blood alcohol level of 120-199 mg/100 ml; E86.1 Hypovolemia; B18.2 Chronic viral hepatitis C; Z79.01 Long term (current) use of anticoagulants; Z79.890 Hormone replacement therapy; Z79.899 Other long term (current) drug therapy; Z90.89 Acquired absence of other organs; Z98.890 Other specified postprocedural states; Z82.49 Family history of ischemic heart disease and other diseases of the circulatory system; Z80.1 Family history of malignant neoplasm of trachea, bronchus and lung; Z80.0 Family history of malignant neoplasm of digestive organs; Z99.3 Dependence on wheelchair; Z86.14 Personal history of Methicillin resistant Staphylococcus aureus infection
CPT/HCPCS: 36415; 71046; 80048; 80053; 81001; 82150; 83605; 83690; 85025; 85027; 87040; 87324; 93005; 94640; 94760; 96361; 96372; 96374; 96375; 99285

== ENCOUNTER 2020-07-07 19:07 | Inpatient (IN) | payer MEDICARE, OTHER ==
[2020-07-07] MEDS ORDERED: PNEUMONIA PROTOCOL UTILIZED 1 EACH MISC PO PRN (19:42)
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
[2020-07-07] MEDS ORDERED: fentaNYL (PF) 50 MCG/ML 2 ML AMP IV STA (19:46)
[2020-07-07] MEDS ORDERED: IPRATROPIUM-ALBUTEROL 3 ML NEB INHALATION SCH (20:00)
[2020-07-07] MEDS: SODIUM CHLORIDE 0.9% 1,000 ML IV SCH (20:22)
[2020-07-07] MEDS ORDERED: IPRATROPIUM-ALBUTEROL 3 ML NEB INHALATION PRN (20:49)
[2020-07-07] MEDS: SYMBICORT 160-4.5 MCG INHALER INHALATION SCH (20:59)
[2020-07-07] MEDS: GABAPENTIN 400 MG CAP PO SCH (21:30)
[2020-07-07] MEDS: HYDROcodone/APAP 5-325MG 1 EACH TAB PO PRN (21:30)
[2020-07-07] MEDS: ARTIFICIAL TEARS-HYPROMELLOSE DROPS 15 ML BTL BOTH EYES SCH (21:52)
[2020-07-08] MEDS: SODIUM CHLORIDE 0.9% 1,000 ML IV SCH ×3 (04:45→23:06)
[2020-07-08] MEDS: HYDROcodone/APAP 5-325MG 1 EACH TAB PO PRN ×4 (07:02→23:57)
[2020-07-08] MEDS: PANTOPRAZOLE 40 MG TABLET PO SCH (07:02)
[2020-07-08] MEDS: LEVOTHYROXINE 25 MCG TAB PO SCH (07:02)
[2020-07-08] MEDS: GABAPENTIN 400 MG CAP PO SCH ×2 (08:13→20:35)
[2020-07-08] MEDS: METOPROLOL SUCCINATE (ER) 50 MG TAB.ER.24H PO SCH (08:13)
[2020-07-08] MEDS: AMIODARONE 200 MG TAB PO SCH (08:14)
[2020-07-08] MEDS: POTASSIUM CHLORIDE ER 10 MEQ TAB.ER.PRT PO SCH (08:14)
[2020-07-08] MEDS: THIAMINE 100 MG TAB PO SCH (08:14)
[2020-07-08] MEDS: ARTIFICIAL TEARS-HYPROMELLOSE DROPS 15 ML BTL BOTH EYES SCH ×2 (08:14→20:35)
[2020-07-08] MEDS ORDERED: AZITHROMYCIN 500 MG TAB PO SCH (09:00)
[2020-07-08] MEDS ORDERED: ENOXAPARIN 40 MG/0.4 ML SYRINGE SQ SCH (09:00)
[2020-07-08] MEDS ORDERED: FUROSEMIDE 40 MG TAB PO SCH (09:00)
[2020-07-08] MEDS: SYMBICORT 160-4.5 MCG INHALER INHALATION SCH ×2 (09:14→19:29)
[2020-07-08] MEDS: IPRATROPIUM-ALBUTEROL 3 ML NEB INHALATION SCH ×5 (09:14→19:29)
--- NOTE | 2020-07-08 09:38 | XR ---
EXAMINATION TYPE: XR chest 2V DATE OF EXAM: 07/08/2020 COMPARISON: 07/01/2020 INDICATION: Pneumonia TECHNIQUE: Frontal and lateral views of the chest are obtained. FINDINGS: The heart size is normal. The pulmonary vasculature is normal. There are linear opacities within the left lung likely on the basis of atelectasis. Previous left ple ural effusion has diminished and is evident on the lateral projection. IMPRESSION: 1. Small posterior left pleural effusion, resolving. 2. Mild plate atelectasis left lung
[2020-07-08] MEDS ORDERED: VANCOMYCIN IV PER PHARMACY 1 EACH MISC MISCELLANE PRN (11:46)
[2020-07-08] MEDS ORDERED: VANCOMYCIN 2,500 MG in SODIUM CHLORIDE 0.9% 500 ML 500 ML IVPB ONE (12:30)
[2020-07-08 12:45] LABS: African American GFR (CKD) >90 (>60 ml/min/1.73 sqM); Non-African American GFR(CKD) >90 (>60 ml/min/1.73 sqM)
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
[2020-07-08] MEDS: FUROSEMIDE 10 MG/ML 4 ML VIAL IV SCH (13:41)
[2020-07-08] MEDS: RIVAROXABAN 20 MG TAB PO SCH (17:12)
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
[2020-07-09] MEDS ORDERED: VANCOMYCIN 2,250 MG in SODIUM CHLORIDE 0.9% 500 ML 500 ML IVPB SCH ×2
[2020-07-09] MEDS ORDERED: ACETAMINOPHEN TAB 325 MG TAB PO PRN (01:56)
[2020-07-09] MEDS: HYDROcodone/APAP 5-325MG 1 EACH TAB PO PRN ×3 (06:03→19:26)
[2020-07-09 06:12] LABS: Anisocytosis Slight; Basophils % (A) 0 %; Eosinophils # (A) 0.3 k/uL (0-0.7); Eosinophils % (A) 3 %; HCT 34.3 % (39.0-53.0); HGB 10.6 gm/dL (13.0-17.5); Hypochromasia Slight; Lymphocytes # (A) 0.6 k/uL (1.0-4.8); Lymphocytes % (A) 7 %; MCH 31.3 pg (25.0-35.0); MCHC 30.9 g/dL (31.0-37.0); MCV 101.1 fL (80.0-100.0); Macrocytosis Slight; Mean Platelet Volume 7.6; Monocytes # (A) 0.5 k/uL (0-1.0); Monocytes % (A) 7 %; Neutrophils # (A) 6.7 k/uL (1.3-7.7); Neutrophils % (A) 82 %; RDW 16.9 % (11.5-15.5); WBC 8.2 k/uL (3.8-10.6)
[2020-07-09 06:30] LABS: Platelet Count 199 k/uL (150-450)
[2020-07-09] MEDS: AMIODARONE 200 MG TAB PO SCH (08:09)
[2020-07-09] MEDS: PANTOPRAZOLE 40 MG TABLET PO SCH (08:09)
[2020-07-09] MEDS: LEVOTHYROXINE 25 MCG TAB PO SCH (08:09)
[2020-07-09] MEDS: METOPROLOL SUCCINATE (ER) 50 MG TAB.ER.24H PO SCH (08:11)
[2020-07-09] MEDS: GABAPENTIN 400 MG CAP PO SCH ×2 (08:11→21:17)
[2020-07-09] MEDS: THIAMINE 100 MG TAB PO SCH (08:12)
[2020-07-09] MEDS: POTASSIUM CHLORIDE ER 10 MEQ TAB.ER.PRT PO SCH (08:12)
[2020-07-09] MEDS: FUROSEMIDE 10 MG/ML 4 ML VIAL IV SCH (08:29)
[2020-07-09] MEDS: IPRATROPIUM-ALBUTEROL 3 ML NEB INHALATION SCH ×4 (08:36→19:32)
[2020-07-09] MEDS: SYMBICORT 160-4.5 MCG INHALER INHALATION SCH ×2 (08:52→19:32)
[2020-07-09 09:28] LABS: African American GFR (CKD) 109.3 (60.0-200.0); Anion Gap 8.3 mmol/L (4.00-12.00); C Reactive Protein 7.9 mg/dL (0.0-0.8); Calcium 7.7 mg/dL (8.7-10.3); Carbon Dioxide 25.7 mmol/L (21.6-31.8); Non-African American GFR(CKD) 94.3 (60.0-200.0); Potassium 3.6 mmol/L (3.5-5.5)
--- NOTE | 2020-07-09 10:00 | P.PN ---
Subjective 70-year-old male was transferred from [facility] for placement. Patient was recently treated here in this hospital for alcoholic pancreatitis right lower lobe pneumonia. Patient was quite weak didn't qualify for rehab but we're unable to place him in anyrehab and patient was subsequently discharged home with home care. Since he was discharged patient has been falling was quite weak and the patient is also complaining of swelling in the right leg up on examination patient's right leg appeared to be tender with local is of temperature. Patient does have bilateral leg swelling.there is no other significant lab abnormality except for elevated TSH from [facility] patient's creatinine is within normal limitspatient was on Ceftin and azithromycin patient was started on ceftriaxone in place of Ceftin by year.patient was treated for alcohol withdrawals and during his previous hospitalization 07/09/2020 Patient is awake and alert, he states he's wheelchair-bound since 2013 secondary to spinal stenosis as per patient however he was not sure about diagnosis. He lives at home alone, he states that he fell no one to the restroom on Tuesday. Patient states that his pneumonia symptoms are improving, his only very little dyspneic and discomfort is improving. He feels generally weak His been treated for right leg cellulitis however legs on both sides looked very similar with no warmth or redness, patient is complaining more of leg swelling rather than redness and pain. Currently he is on IV Lasix. Also he is been treated for possible right leg cellulitis and infectious disease on the case, currently is on Rocephin and IV vancomycin as per ID team recommendation Patient is also on Xarelto for his history of A. fib. Calcitonin is normal at 0.06 He has a Mcbride catheter and he would like to keep it Follow-up recommendation by PT/OT. Review of Systems REVIEW OF SYSTEMS: CONSTITUTIONAL: No fever, no malaise, no fatigue. HEENT: No recent visual problems or hearing problems. Denied any sore throat. CARDIOVASCULAR: No chest pain, orthopnea, PND, no palpitations, no syncope. PULMONARY: No shortness of breath, no cough, no hemoptysis. GASTROINTESTINAL: No diarrhea, no nausea, no vomiting, no abdominal pain. NEUROLOGICAL: No headaches, no weakness, no numbness. HEMATOLOGICAL: Denies any bleeding or petechiae. GENITOURINARY: Denies any burning micturition, frequency, or urgency. MUSCULOSKELETAL/RHEUMATOLOGICAL: as mentioned in HPI ENDOCRINE: Denies any polyuria or polydipsia. Active Medications Generic Name Dose Route Start Last Admin Trade Name Freq PRN Reason Stop Dose Admin Acetaminophen 650 mg 07/09/20 01:56 Acetaminophen Tab 325 Mg Tab PO Q4HR PRN Fever and/ or Pain Hydrocodone Bitart/Acetaminophen 1 each 07/07/20 19:44 07/09/20 06:03 Hydrocodone/Apap 5-325mg 1 Each Tab PO 1 each Q6H PRN Administration Pain Albuterol/Ipratropium 3 ml 07/08/20 08:00 07/09/20 08:36 Ipratropium-Albuterol 3 Ml Neb INHALATION 3 ml RT-QID ABRAHAN Administration Albuterol/Ipratropium 3 ml 07/07/20 20:49 Ipratropium-Albuterol 3 Ml Neb INHALATION RT-Q2H PRN Shortness Of Breath Or Wheezing Amiodarone HCl 200 mg 07/08/20 09:00 07/09/20 08:09 Amiodarone 200 Mg Tab PO 200 mg DAILY ABRAHAN Administration Artificial Tears 1 drops 07/07/20 21:00 07/08/20 20:35 Artificial Tears-Hypromellose Drops 15 Ml Btl BOTH EYES Not Given BID ABRAHAN Budesonide/Formoterol Fumarate 2 puff 07/08/20 20:00 07/09/20 08:52 Symbicort 160-4.5 Mcg Inhaler INHALATION 2 puff RT-BID ABRAHAN Administration Furosemide 40 mg 07/08/20 13:00 07/09/20 08:29 Furosemide 10 Mg/Ml 4 Ml Vial IV 40 mg DAILY ABRAHAN Administration Gabapentin 800 mg 07/07/20 21:00 07/09/20 08:11 Gabapentin 400 Mg Cap PO 800 mg BID ABRAHAN Administration Sodium Chloride 1,000 mls @ 100 mls/hr 07/07/20 19:45 07/08/20 23:06 Saline 0.9% IV 100 mls/hr .Q10H ABRAHAN Administration Cefazolin Sodium 2 gm/ Sodium 50 mls @ 100 mls/hr 07/09/20 00:00 07/09/20 08:25 Chloride IVPB 100 mls/hr Q8HR ABRAHAN Administration Levothyroxine Sodium 25 mcg 07/08/20 07:30 07/09/20 08:09 Levothyroxine 25 Mcg Tab PO 25 mcg AC-BRKFST ABRAHAN Administration Metoprolol Succinate 50 mg 07/08/20 09:00 07/09/20 08:11 Metoprolol Succinate (Er) 50 Mg Tab.Er.24h PO 50 mg DAILY ABRAHAN Administration Miscellaneous Information 1 each 07/07/20 19:42 Pneumonia Protocol Utilized 1 Each Misc PO ONCE PRN Per Protocol Pantoprazole Sodium 40 mg 07/08/20 07:30 07/09/20 08:09 Pantoprazole 40 Mg Tablet PO 40 mg AC-BRKFST ABRAHAN Administration Potassium Chloride 10 meq 07/08/20 09:00 07/09/20 08:12 Potassium Chloride Er 10 Meq Tab.Er.Prt PO 10 meq DAILY ABRAHAN Administration Rivaroxaban 20 mg 07/08/20 17:30 07/08/20 17:12 Rivaroxaban 20 Mg Tab PO 20 mg AC-SUPPER ABRAHAN Administration Thiamine HCl 100 mg 07/08/20 09:00 07/09/20 08:12 Thiamine 100 Mg Tab PO 100 mg DAILY ABRAHAN Administration Objective - Vital Signs Vital signs: Vital Signs Temp 99.5 F 07/09/20 07:32 Pulse 81 07/09/20 08:51 Resp 16 07/09/20 07:32 BP 120/66 07/09/20 07:37 Pulse Ox 93 L 07/09/20 07:32 Intake & Output 07/08/20 07/09/20 07/09/20 18:59 06:59 18:59 Intake Total 400 Output Total 2300 600 Balance -1900 -600 Intake: Oral 400 Output: Urine 2300 600 Other: Voiding Method Bedpan Bedpan Indwelling Catheter - Exam -GENERAL: The patient is alert and oriented x3, not in any acute distress. Morbidly obese HEENT: Pupils are round and equally reacting to light. EOMI. No scleral icterus. No conjunctival pallor. Normocephalic, atraumatic. No pharyngeal erythema. No thyromegaly. CARDIOVASCULAR: S1 and S2 present. No murmurs, rubs, or gallops. PULMONARY: Chest is clear to auscultation, no wheezing or crackles. ABDOMEN: Soft, nontender, nondistended, normoactive bowel sounds. No palpable organomegaly. MUSCULOSKELETAL: No joint swelling or deformity. -EXTREMITIES: No cyanosis, clubbing,. Bilateral leg swelling -NEUROLOGICAL: Gross neurological examination did not reveal any focal deficits. Wheelchair-bound as per patient SKIN: No rashes. no petechiae. - Labs CBC & Chem 7: 07/09/20 05:30 07/09/20 05:30 Labs: Abnormal Lab Results - Last 24 Hours (Table) 07/09/20 07/09/20 Range/Units 05:30 05:30 RBC 3.40 L (4.30-5.90) m/uL Hgb 10.6 L (13.0-17.5) gm/dL Hct 34.3 L (39.0-53.0) % MCV 101.1 H (80.0-100.0) fL MCHC 30.9 L (31.0-37.0) g/dL RDW 16.9 H (11.5-15.5) % Lymphocytes # 0.6 L (1.0-4.8) k/uL BUN 7.0 L (9.0-27.0) mg/dL BUN/Creatinine Ratio 10.00 L (12.00-20.00) Ratio Calcium 7.7 L (8.7-10.3) mg/dL C-Reactive Protein 7.9 H (0.0-0.8) mg/dL TSH 14.050 H (0.350-5.500) uIU/mL Microbiology - Last 24 Hours (Table) 07/07/20 20:00 Blood Culture - Preliminary Blood No Growth after 24 hours 07/07/20 20:15 Blood Culture - Preliminary Blood No Growth after 24 hours 07/08/20 09:19 Gram Stain - Preliminary Sputum Sputum Culture - Preliminary Assessment and Plan Assessment: -Bilateral leg swelling, possible cellulitis of the right leg but it felt less likely: Patient is on antibiotics per recommendation of consulted infectious disease team. Continue with Lasix. -High TSH. Recheck TSH and T4. -Recent pneumonia patient. Continue with antibiotic -Generalized weakness and falls. Social work and case management are working on his placement. They did work on his placement in the past unable to place him after he was evaluated by multiple facilities -history of alcohol abuse was recently treated for alcohol withdrawals -COPD without any significant exacerbation -atrial fibrillation, presently rate controlled proximal A. fib can you with anti-correlation -History of chronic hep C -Hypertension
[2020-07-09] MEDS: ARTIFICIAL TEARS-HYPROMELLOSE DROPS 15 ML BTL BOTH EYES SCH ×2 (12:08→19:29)
[2020-07-09] MEDS: SODIUM CHLORIDE 0.9% 1,000 ML IV SCH ×2 (12:09→20:57)
--- NOTE | 2020-07-09 16:01 | PN ---
PROGRESS NOTE DATE OF SERVICE: 07/09/2020 REASON FOR FOLLOWUP: Right lower extremity cellulitis. INTERVAL HISTORY: The patient is currently afebrile. The patient is breathing comfortably on room air. Denies having any chest pain. Minimal shortness of breath. Occasional cough. No abdominal pain. Still has swelling in the leg, but denies any worsening pain. PHYSICAL EXAMINATION: Blood pressure 117/75 with a pulse of 79, temperature 99. General description is an elderly male lying in bed in no distress. RESPIRATORY SYSTEM: Unlabored breathing. Clear to auscultation anteriorly. HEART: S1, S2. Regular rate and rhythm. ABDOMEN: Soft. No tenderness. Right leg did have minimal swelling minimal redness. LABS: Hemoglobin is 10.3, white count 8.2. CRP 7.9. DIAGNOSTIC IMPRESSION AND PLAN: Patient with acute right lower extremity cellulitis in this patient who did have diffuse swelling and redness with concern for possible streptococcal infection. The patient is currently covered with cefazolin; to continue and monitor his clinical course closely. MMODL / IJN: [id number] /
[2020-07-09] MEDS: RIVAROXABAN 20 MG TAB PO SCH (17:45)
[2020-07-10] MEDS: HYDROcodone/APAP 5-325MG 1 EACH TAB PO PRN ×4 (01:36→22:56)
[2020-07-10] MEDS: LEVOTHYROXINE 25 MCG TAB PO SCH (05:38)
[2020-07-10 06:17] LABS: Anisocytosis Slight; Basophils % (A) 0 %; Eosinophils # (A) 0.4 k/uL (0-0.7); Eosinophils % (A) 4 %; HCT 33.5 % (39.0-53.0); HGB 10.9 gm/dL (13.0-17.5); Lymphocytes # (A) 0.6 k/uL (1.0-4.8); Lymphocytes % (A) 6 %; MCH 33.1 pg (25.0-35.0); MCHC 32.6 g/dL (31.0-37.0); MCV 101.4 fL (80.0-100.0); Macrocytosis Slight; Mean Platelet Volume 7.5; Monocytes # (A) 0.4 k/uL (0-1.0); Monocytes % (A) 4 %; Neutrophils # (A) 8.4 k/uL (1.3-7.7); Neutrophils % (A) 84 %; Platelet Count 195 k/uL (150-450); RBC 3.31 m/uL (4.30-5.90); RDW 17.2 % (11.5-15.5)
[2020-07-10] MEDS: THIAMINE 100 MG TAB PO SCH (07:26)
[2020-07-10] MEDS: POTASSIUM CHLORIDE ER 10 MEQ TAB.ER.PRT PO SCH (07:26)
[2020-07-10] MEDS: FUROSEMIDE 10 MG/ML 4 ML VIAL IV SCH (07:26)
[2020-07-10] MEDS: PANTOPRAZOLE 40 MG TABLET PO SCH (07:26)
[2020-07-10] MEDS: GABAPENTIN 400 MG CAP PO SCH ×2 (07:26→20:11)
[2020-07-10] MEDS: AMIODARONE 200 MG TAB PO SCH (07:27)
[2020-07-10] MEDS: METOPROLOL SUCCINATE (ER) 50 MG TAB.ER.24H PO SCH (07:27)
[2020-07-10] MEDS: ARTIFICIAL TEARS-HYPROMELLOSE DROPS 15 ML BTL BOTH EYES SCH ×2 (07:28→21:06)
[2020-07-10] MEDS: SODIUM CHLORIDE 0.9% 1,000 ML IV SCH ×3 (07:29→16:02)
[2020-07-10] MEDS: IPRATROPIUM-ALBUTEROL 3 ML NEB INHALATION SCH ×4 (08:17→19:23)
[2020-07-10] MEDS: SYMBICORT 160-4.5 MCG INHALER INHALATION SCH ×2 (08:45→19:22)
[2020-07-10 09:18] LABS: African American GFR (CKD) 109.3 (60.0-200.0); Anion Gap 8.2 mmol/L (4.00-12.00); Calcium 8.1 mg/dL (8.7-10.3); Carbon Dioxide 24.8 mmol/L (21.6-31.8); Non-African American GFR(CKD) 94.3 (60.0-200.0)
[2020-07-10] MEDS ORDERED: IOPAMIDOL CONTRAST (ORAL USE) VIAL PO PRN (12:07)
--- NOTE | 2020-07-10 12:18 | P.PN ---
Subjective 70-year-old male was transferred from [facility] for placement. Patient was recently treated here in this hospital for alcoholic pancreatitis right lower lobe pneumonia. Patient was quite weak didn't qualify for rehab but we're unable to place him in anyrehab and patient was subsequently discharged home with home care. Since he was discharged patient has been falling was quite weak and the patient is also complaining of swelling in the right leg up on examination patient's right leg appeared to be tender with local is of temperature. Patient does have bilateral leg swelling.there is no other significant lab abnormality except for elevated TSH from [facility] patient's creatinine is within normal limitspatient was on Ceftin and azithromycin patient was started on ceftriaxone in place of Ceftin by year.patient was treated for alcohol withdrawals and during his previous hospitalization 07/09/2020 Patient is awake and alert, he states he's wheelchair-bound since 2013 secondary to spinal stenosis as per patient however he was not sure about diagnosis. He lives at home alone, he states that he fell no one to the restroom on Tuesday. Patient states that his pneumonia symptoms are improving, his only very little dyspneic and discomfort is improving. He feels generally weak His been treated for right leg cellulitis however legs on both sides looked very similar with no warmth or redness, patient is complaining more of leg swelling rather than redness and pain. Currently he is on IV Lasix. Also he is been treated for possible right leg cellulitis and infectious disease on the case, currently is on Rocephin and IV vancomycin as per ID team recommendation Patient is also on Xarelto for his history of A. fib. Calcitonin is normal at 0.06 He has a Mcbride catheter and he would like to keep it Follow-up recommendation by PT/OT. 07/10/2020 Patient is awake and alert, however he is in mild distress due to nausea, also is complaining of from epigastric abdominal pain which he states is been going on for months however he has tenderness on the periumbilical and upper abdomen especially on the right side, no rebound tenderness or guarding however he has been constipation for 4-5 days. We are going to do a CT of the abdomen and pelvis with IV and oral contrast, risks including but not limited to nephroto xicity and ALLERGY are explained for the patient and he agrees to the test. Review of Systems REVIEW OF SYSTEMS: CONSTITUTIONAL: No fever, no malaise, no fatigue. HEENT: No recent visual problems or hearing problems. Denied any sore throat. CARDIOVASCULAR: No chest pain, orthopnea, PND, no palpitations, no syncope. PULMONARY: No shortness of breath, no cough, no hemoptysis. GASTROINTESTINAL: No diarrhea, no nausea, no vomiting, no abdominal pain. NEUROLOGICAL: No headaches, no weakness, no numbness. HEMATOLOGICAL: Denies any bleeding or petechiae. GENITOURINARY: Denies any burning micturition, frequency, or urgency. MUSCULOSKELETAL/RHEUMATOLOGICAL: as mentioned in HPI ENDOCRINE: Denies any polyuria or polydipsia. Active Medications Generic Name Dose Route Start Last Admin Trade Name Freq PRN Reason Stop Dose Admin Acetaminophen 650 mg 07/09/20 01:56 Acetaminophen Tab 325 Mg Tab PO Q4HR PRN Fever and/ or Pain Hydrocodone Bitart/Acetaminophen 1 each 07/07/20 19:44 07/10/20 07:27 Hydrocodone/Apap 5-325mg 1 Each Tab PO 1 each Q6H PRN Administration Pain Albuterol/Ipratropium 3 ml 07/08/20 08:00 07/10/20 11:16 Ipratropium-Albuterol 3 Ml Neb INHALATION 3 ml RT-QID ABRAHAN Administration Albuterol/Ipratropium 3 ml 07/07/20 20:49 Ipratropium-Albuterol 3 Ml Neb INHALATION RT-Q2H PRN Shortness Of Breath Or Wheezing Amiodarone HCl 200 mg 07/08/20 09:00 07/10/20 07:27 Amiodarone 200 Mg Tab PO 200 mg DAILY ABRAHAN Administration Artificial Tears 1 drops 07/07/20 21:00 07/10/20 07:28 Artificial Tears-Hypromellose Drops 15 Ml Btl BOTH EYES Not Given BID ABRAHAN Budesonide/Formoterol Fumarate 2 puff 07/08/20 20:00 07/10/20 08:45 Symbicort 160-4.5 Mcg Inhaler INHALATION 2 puff RT-BID ABRAHAN Administration Furosemide 40 mg 07/08/20 13:00 07/10/20 07:26 Furosemide 10 Mg/Ml 4 Ml Vial IV 40 mg DAILY ABRAHAN Administration Gabapentin 800 mg 07/07/20 21:00 07/10/20 07:26 Gabapentin 400 Mg Cap PO 800 mg BID ABRAHAN Administration Sodium Chloride 1,000 mls @ 100 mls/hr 07/07/20 19:45 07/10/20 07:33 Saline 0.9% IV Not Given .Q10H ABRAHAN Cefazolin Sodium 2 gm/ Sodium 50 mls @ 100 mls/hr 07/09/20 00:00 07/10/20 08:35 Chloride IVPB 100 mls/hr Q8HR ABRAHAN Administration Iopamidol 30 ml 07/10/20 12:07 Iopamidol Contrast (Oral Use) Vial PO 07/11/20 12:[address] Scan Levothyroxine Sodium 50 mcg 07/10/20 06:30 07/10/20 05:38 Levothyroxine 25 Mcg Tab PO 50 mcg DAILY@0630 ABRAHAN Administration Metoprolol Succinate 50 mg 07/08/20 09:00 07/10/20 07:27 Metoprolol Succinate (Er) 50 Mg Tab.Er.24h PO 50 mg DAILY ABRAHAN Administration Miscellaneous Information 1 each 07/07/20 19:42 Pneumonia Protocol Utilized 1 Each Misc PO ONCE PRN Per Protocol Pantoprazole Sodium 40 mg 07/08/20 07:30 07/10/20 07:26 Pantoprazole 40 Mg Tablet PO 40 mg AC-BRKFST ABRAHAN Administration Potassium Chloride 10 meq 07/08/20 09:00 07/10/20 07:26 Potassium Chloride Er 10 Meq Tab.Er.Prt PO 10 meq DAILY ABRAHAN Administration Rivaroxaban 20 mg 07/08/20 17:30 07/09/20 17:45 Rivaroxaban 20 Mg Tab PO 20 mg AC-SUPPER ABRAHAN Administration Thiamine HCl 100 mg 07/08/20 09:00 07/10/20 07:26 Thiamine 100 Mg Tab PO 100 mg DAILY ABRAHAN Administration Objective - Vital Signs Vital signs: Vital Signs Temp 98.7 F 07/10/20 06:45 Pulse 80 07/10/20 11:26 Resp 16 07/10/20 06:45 BP 112/71 07/10/20 06:45 Pulse Ox 94 L 07/10/20 06:45 Intake & Output 07/09/20 07/10/20 07/10/20 18:59 06:59 18:59 Intake Total 60 130 420 Output Total 3100 750 3240 Balance -3040 -620 -1979 Intake: Intake, IV Titration 60 130 Amount Sodium Chloride 0.9% 1, 60 80 000 ml @ 100 mls/hr IV . Q10H ABRAHAN Rx#:[id number] ceFAZolin 2 gm In Sodium 50 Chloride 0.9% 50 ml @ 100 mls/hr IVPB Q8HR ABRAHAN Rx# :[id number] Oral 420 Output: Urine 3100 750 2400 Other: Voiding Method Indwelling Catheter - Exam -GENERAL: The patient is alert and oriented x3, not in any acute distress. Morbidly obese HEENT: Pupils are round and equally reacting to light. EOMI. No scleral icterus. No conjunctival pallor. Normocephalic, atraumatic. No pharyngeal erythema. No thyromegaly. CARDIOVASCULAR: S1 and S2 present. No murmurs, rubs, or gallops. PULMONARY: Chest is clear to auscultation, no wheezing or crackles. ABDOMEN: Soft, nontender, nondistended, normoactive bowel sounds. No palpable organomegaly. MUSCULOSKELETAL: No joint swelling or deformity. -EXTREMITIES: No cyanosis, clubbing,. Bilateral leg swelling -NEUROLOGICAL: Gross neurological examination did not reveal any focal deficits. Wheelchair-bound as per patient SKIN: No rashes. no petechiae. - Labs CBC & Chem 7: 07/10/20 05:28 07/10/20 05:28 Labs: Abnormal Lab Results - Last 24 Hours (Table) 07/10/20 07/10/20 Range/Units 05:28 05:28 RBC 3.31 L (4.30-5.90) m/uL Hgb 10.9 L (13.0-17.5) gm/dL Hct 33.5 L (39.0-53.0) % MCV 101.4 H (80.0-100.0) fL RDW 17.2 H (11.5-15.5) % Neutrophils # 8.4 H (1.3-7.7) k/uL Lymphocytes # 0.6 L (1.0-4.8) k/uL BUN 7.0 L (9.0-27.0) mg/dL BUN/Creatinine Ratio 10.00 L (12.00-20.00) Ratio Calcium 8.1 L (8.7-10.3) mg/dL Microbiology - Last 24 Hours (Table) 07/07/20 20:00 Blood Culture - Preliminary Blood No Growth after 48 hours 07/07/20 20:15 Blood Culture - Preliminary Blood No Growth after 48 hours Assessment and Plan Assessment: -Abdominal pain with tenderness and constipation and nausea. We'll check CT of the abdomen and pelvis with IV contrast, patient agrees -Bilateral leg swelling, possible cellulitis of the right leg but it felt less likely: Patient is on antibiotics per recommendation of consulted infectious disease team. Continue with Lasix. -Hypothyroidism, with TSH more than 10, increase his levothyroxine from 25 up to 50 g daily and patient informed and he agrees -Recent pneumonia patient. Continue with antibiotic, he has minimal or no respiratory symptoms. Improvement -Generalized weakness and falls. Social work and case management are working on his placement. They did work on his placement in the past unable to place him after he was evaluated by multiple facilities -history of alcohol abuse was recently treated for alcohol withdrawals -COPD without any significant exacerbation -atrial fibrillation, presently rate controlled proximal A. fib can you with anti-correlation -History of chronic hep C -Hypertension DVT prophylaxis:'xarelto GI prophylaxis Protonix
--- NOTE | 2020-07-10 14:39 | CDI ---
Documentation Clarification Form Date: 07/10/2020 02:22:53 PM From: Christina Herrmann RN CCDS Admit Date: 07/09/2020 08:24:00 AM Patient Name: Isaiah Styles Visit Number: [id number] Discharge Date: ATTENTION: The Clinical Documentation Specialists (CDI) and [facility] Coding Staff appreciate your assistance in clarifying documentation. Please respond to the clarification below the line at the bottom and electronically sign. The CDI & [facility] Coding staff will review the response and follow-up if needed. Please note: Queries are made part of the Legal Health Record. If you have any questions, please contact the author of this message via ITS. Dr. Andujar E Sheet Possible CHF and Fluid overload is documented in the Infectious disease consult 07/08 History/Risk Factors: 70-year-old male presents to the ED with weakness, right leg swelling and tender. Medical History: Atrial Fibrillation; HTN; Clinical Indicators: 07/07 VS/Pulse OX: B/P: 124/84; HR: 107; Temp: 98.8 F; RR: 18; SpO2: 94% room air 01/11/17 Echocardiogram Results: Left ventricular wall thickness is normal. Overall left ventricular systolic function is low-normal with, an EF between 50 55%. The right ventricle is mildly enlarged. 07/08 Chest X Ray: Small posterior left pleural effusion, resolving. Mild plate atelectasis of left lung. Treatment: 07/03 Lasix 40mg IV daily; Toprol XL In your professional opinion, can you please clarify the acuity and type of CHF if known? Diastolic Heart Failure Acute on Chronic Systolic & Diastolic Heart Failure Acute on Chronic Unable to Determine Other, please specify (Last Revision: January 2018) Unable to Determine MTDD
--- NOTE | 2020-07-10 15:28 | PN ---
PROGRESS NOTE DATE OF SERVICE: 07/10/2020 REASON FOR FOLLOWUP: Right lower extremity cellulitis. INTERVAL HISTORY: The patient is currently afebrile, he is breathing comfortably. Still on IV Lasix and did have good urine output. No chest pain or cough. Did have some cough, no sputum, no abdominal pain and swelling to the leg has decreased. PHYSICAL EXAMINATION: Blood pressure 112/71 with a pulse of 71, temperature 98.7. He is 94% on room air. General description is an elderly male, lying in bed in no distress. RESPIRATORY SYSTEM: Unlabored breathing, clear to auscultation anteriorly. HEART: S1, S2. Regular rate and rhythm. ABDOMEN: Soft, no tenderness. LABS: Hemoglobin 10, white count of 10.0, BUN of 7, creatinine 0.7. DIAGNOSTIC IMPRESSION AND PLAN: Patient with acute right lower extremity cellulitis. Patient has shown clinical response to the cefazolin to continue, finish therapy with oral Keflex and monitor clinical course closely. MMODL / IJN: [id number] /
[2020-07-10] MEDS: RIVAROXABAN 20 MG TAB PO SCH (16:57)
[2020-07-11] MEDS: SODIUM CHLORIDE 0.9% 1,000 ML IV SCH ×2 (05:03→13:53)
[2020-07-11] MEDS: LEVOTHYROXINE 25 MCG TAB PO SCH (05:35)
[2020-07-11] MEDS: HYDROcodone/APAP 5-325MG 1 EACH TAB PO PRN ×3 (06:00→18:28)
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
[2020-07-11] MEDS: PANTOPRAZOLE 40 MG TABLET PO SCH (07:29)
[2020-07-11] MEDS: SYMBICORT 160-4.5 MCG INHALER INHALATION SCH ×4 (09:18→18:58)
[2020-07-11] MEDS: IPRATROPIUM-ALBUTEROL 3 ML NEB INHALATION SCH ×4 (09:18→18:59)
[2020-07-11] MEDS: GABAPENTIN 400 MG CAP PO SCH ×2 (09:23→21:29)
[2020-07-11] MEDS: POTASSIUM CHLORIDE ER 10 MEQ TAB.ER.PRT PO SCH (09:23)
[2020-07-11] MEDS: AMIODARONE 200 MG TAB PO SCH (09:23)
[2020-07-11] MEDS: THIAMINE 100 MG TAB PO SCH (09:23)
[2020-07-11] MEDS: METOPROLOL SUCCINATE (ER) 50 MG TAB.ER.24H PO SCH (09:24)
[2020-07-11] MEDS: FUROSEMIDE 10 MG/ML 4 ML VIAL IV SCH (09:24)
[2020-07-11] MEDS: ARTIFICIAL TEARS-HYPROMELLOSE DROPS 15 ML BTL BOTH EYES SCH ×2 (09:28→21:28)
[2020-07-11] MEDS ORDERED: ONDANSETRON 4 MG TAB PO PRN (09:57)
--- NOTE | 2020-07-11 11:30 | P.PN ---
Subjective Progress Note Date: 07/11/20 Principal diagnosis: Pancreatic cyst 70-year-old male with a medical history significant for atrial fibrillation on Xarelto therapy, osteoarthritis, hypertension, alcohol abuse, hepatitis C treated with interferon and ribavirin who presented as a transfer from [facility]. The patient has a recent admission treated for acute on chronic pancreatitis as well as pneumonia. The patient reports that he has continued to feel weak since that time. The patient has a known history of chronic pancreatitis and had been complaining about abdominal pain at that time. Computed tomography scan at outside hospital prior to his last admission was significant for inflammatory changes around the pancreas with cystic enlargement consistent with acute and chronic pancreatitis and pseudocyst formation. Patient had repeat imaging prior to current admission with findings of cirrhosis without hepatic masses as well as cystic versus necrotic pancreatic body/tail measuring 10 x 6 cm with differential including pseudocyst formation similar to prior findings. Today the patient states he is not feeling well overall. He has pain all over his body. He still has some mild abdominal upper quadrant tenderness and is nauseated. He denies any vomiting. He states that he did have a bowel movement this morning, this is his first since Tuesday. Objective - Vital Signs Vital signs: Vital Signs Temp 98.3 F 07/11/20 07:29 Pulse 80 07/11/20 07:29 Resp 16 07/11/20 07:29 BP 130/83 07/11/20 07:29 Pulse Ox 93 L 07/11/20 07:29 Intake & Output 07/10/20 07/11/20 07/11/20 18:59 06:59 18:59 Intake Total 420 550 Output Total 2400 800 2250 Balance -1979 Intake: Intake, IV Titration 350 Amount Sodium Chloride 0.9% 1, 350 000 ml @ 100 mls/hr IV . Q10H [facility] Rx#:[id number] Oral 420 200 Output: Urine 2400 800 2250 Other: Voiding Method Indwelling Catheter # Bowel Movements 1 - Exam General appearance: The patient is alert, oriented, in no acute distress. HET: Head is normocephalic and atraumatic. Neck: Supple without lymphadenopathy. Trachea midline. Abdomen: Soft, obese, mild tenderness to palpation along the epigastric and left upper quadrant region, nondistended with bowel sounds. Guarding or rigidity Extremities: Pedal edema bilaterally, with compression stockings on. Neurological: No focal deficits. Alert and oriented 3.. - Labs CBC & Chem 7: 07/10/20 05:28 07/10/20 05:28 Labs: Microbiology - Last 24 Hours (Table) 07/08/20 09:19 Gram Stain - Final Sputum Sputum Culture - Final 07/07/20 20:15 Blood Culture - Preliminary Blood No Growth after 72 hours 07/07/20 20:00 Blood Culture - Preliminary Blood No Growth after 72 hours Assessment and Plan (1) Pancreatic cyst Narrative/Plan: 70-year-old male with a known history of alcohol abuse, prior episodes of pancreatitis, hepatitis C for which he received treatment with ribavirin and interferon who presented to the ospital with concerns over weakness after recent admission for pneumonia and acute on chronic pancreatitis. Patient with a long-standing history of chronic pancreatitis with acute episodes secondary to alcohol abuse. Denies any recent alcohol use since discharge. Patient had findings of pancreatic cyst on prior imaging which are again redemonstrated prior to current admission with findings also consistent with acute on chronic pancreatitis. Current Visit: No Status: Acute Code(s): K86.2 - CYST OF PANCREAS SNOMED Code(s): 35294339 (2) Acute on chronic pancreatitis Current Visit: No Status: Acute Code(s): K85.90 - ACUTE PANCREATITIS WITHOUT NECROSIS OR INFECTION, UNSP; K86.1 - OTHER CHRONIC PANCREATITIS SNOMED Code(s): 404762038 (3) Alcohol abuse Current Visit: No Status: Acute Code(s): F10.10 - ALCOHOL ABUSE, UNCOMPLICATED SNOMED Code(s): 06896281 (4) Epigastric pain Current Visit: No Status: Acute Code(s): R10.13 - EPIGASTRIC PAIN SNOMED Code(s): 01791861 Plan: supportive care IV fluid hydration Alcohol abstinence Continue to monitor CBC, BMP, LFTs And Zofran IV push as needed for nausea No plans for endoscopic evaluation at this time Would recommend patient have repeat imaging with either MRI of the abdomen or endoscopic ultrasound to tertiary facility in 6-8 weeks for reevaluation of cystic findings on computed tomography scan Other medical management per primary team Thank you for allowing us to participate in the care of the patient The impression and plan of care has been dictated as directed. I performed a history and examination of this patient, discussed the same with the dictator. I agree with the dictator's note ,documented as a scribe. Any ad ditional findings or plans will be noted.
--- NOTE | 2020-07-11 12:01 | P.PN ---
Subjective 70-year-old male was transferred from [facility] for placement. Patient was recently treated here in this hospital for alcoholic pancreatitis right lower lobe pneumonia. Patient was quite weak didn't qualify for rehab but we're unable to place him in anyrehab and patient was subsequently discharged home with home care. Since he was discharged patient has been falling was quite weak and the patient is also complaining of swelling in the right leg up on examination patient's right leg appeared to be tender with local is of temperature. Patient does have bilateral leg swelling.there is no other significant lab abnormality except for elevated TSH from [facility] patient's creatinine is within normal limitspatient was on Ceftin and azithromycin patient was started on ceftriaxone in place of Ceftin by year.patient was treated for alcohol withdrawals and during his previous hospitalization 07/09/2020 Patient is awake and alert, he states he's wheelchair-bound since 2013 secondary to spinal stenosis as per patient however he was not sure about diagnosis. He lives at home alone, he states that he fell no one to the restroom on Tuesday. Patient states that his pneumonia symptoms are improving, his only very little dyspneic and discomfort is improving. He feels generally weak His been treated for right leg cellulitis however legs on both sides looked very similar with no warmth or redness, patient is complaining more of leg swelling rather than redness and pain. Currently he is on IV Lasix. Also he is been treated for possible right leg cellulitis and infectious disease on the case, currently is on Rocephin and IV vancomycin as per ID team recommendation Patient is also on Xarelto for his history of A. fib. Calcitonin is normal at 0.06 He has a Mcbride catheter and he would like to keep it Follow-up recommendation by PT/OT. 07/10/2020 Patient is awake and alert, however he is in mild distress due to nausea, also is complaining of from epigastric abdominal pain which he states is been going on for months however he has tenderness on the periumbilical and upper abdomen especially on the right side, no rebound tenderness or guarding however he has been constipation for 4-5 days. We are going to do a CT of the abdomen and pelvis with IV and oral contrast, risks including but not limited to nephroto xicity and ALLERGY are explained for the patient and he agrees to the test. 07/11/2020 Patient today is keep doing well, with no nausea, he still has ongoing abdominal pain for about a month which is mild to moderate, he did not have bowel movement. However he thinks he will have one stone and he does not want any laxative and dependent on diet only. GI team evaluated the patient for multiple pancreatic cysts and they recommended MRI or endoscopic ultrasound which can be done as an outpatient at a tertiary care center in 6-8 weeks. Patient also has stage I to 2 pressure ulcer in the right buttock area with no surrounding cellulitis. His right leg cellulitis is significantly improving. He is hemodynamically stable. CBC is a stable. Basic metabolic panel is a stable as well. We will c ontinue monitoring. Patient remains on cefazolin for now. He is also on Xarelto and IV Lasix 40 mg daily. Objective - Vital Signs Vital signs: Vital Signs Temp 98.3 F 07/11/20 07:29 Pulse 80 07/11/20 07:29 Resp 16 07/11/20 07:29 BP 130/83 07/11/20 07:29 Pulse Ox 93 L 07/11/20 07:29 Intake & Output 07/10/20 07/11/20 07/11/20 18:59 06:59 18:59 Intake Total 420 550 Output Total 2400 800 2250 Balance -1979 -250 -2250 Intake: Intake, IV Titration 350 Amount Sodium Chloride 0.9% 1, 350 000 ml @ 100 mls/hr IV . Q10H [facility] Rx#:[id number] Oral 420 200 Output: Urine 2400 800 2250 Other: Voiding Method Indwelling Catheter # Bowel Movements 1 - Exam -GENERAL: The patient is alert and oriented x3, not in any acute distress. Morbidly obese HEENT: Pupils are round and equally reacting to light. EOMI. No scleral icterus. No conjunctival pallor. Normocephalic, atraumatic. No pharyngeal erythema. No thyromegaly. CARDIOVASCULAR: S1 and S2 present. No murmurs, rubs, or gallops. PULMONARY: Chest is clear to auscultation, no wheezing or crackles. ABDOMEN: Soft, nontender, nondistended, normoactive bowel sounds. No palpable organomegaly. MUSCULOSKELETAL: No joint swelling or deformity. -EXTREMITIES: No cyanosis, clubbing,. Bilateral leg swelling -NEUROLOGICAL: Gross neurological examination did not reveal any focal deficits. Wheelchair-bound as per patient SKIN: No rashes. no petechiae. - Labs CBC & Chem 7: 07/10/20 05:28 07/10/20 05:28 Labs: Microbiology - Last 24 Hours (Table) 07/08/20 09:19 Gram Stain - Final Sputum Sputum Culture - Final 07/07/20 20:15 Blood Culture - Preliminary Blood No Growth after 72 hours 07/07/20 20:00 Blood Culture - Preliminary Blood No Growth after 72 hours Assessment and Plan Assessment: -Abdominal pain with tenderness and constipation and nausea. We'll check CT of the abdomen and pelvis with IV showed multiple pancreatic cyst, GI recommended outpatient MRI or endoscopic ultrasound -Stage 1-2 buttock ulcer, secondary to pressure ulcer, continue with local treatment and measurement -Bilateral leg swelling, possible cellulitis of the right leg but it felt less likely: Patient is on antibiotics per recommendation of consulted infectious disease team. Continue with Lasix. -Hypothyroidism, with TSH more than 10, increase his levothyroxine from 25 up to 50 g daily and patient informed and he agrees -Recent pneumonia patient. Continue with antibiotic, he has minimal or no respiratory symptoms. Improvement -Generalized weakness and falls. Social work and case management are working on his placement. They did work on his placement in the past unable to place him after he was evaluated by multiple facilities -history of alcohol abuse was recently treated for alcohol withdrawals -COPD without any significant exacerbation -atrial fibrillation, presently rate controlled proximal A. fib can you with anti-correlation -History of chronic hep C -Hypertension DVT prophylaxis:'xarelto GI prophylaxis Protonix improvement significantly
[2020-07-11 12:36] LABS: African American GFR (CKD) 103.4 (60.0-200.0); Albumin 3.2 g/dL (3.80-4.90); Albumin/Globulin Ratio 1.52 (1.60-3.17); Anion Gap 7.5 mmol/L (4.00-12.00); BUN/Creat Ratio 8.75 Ratio (12.00-20.00); Calcium 8.4 mg/dL (8.7-10.3); Carbon Dioxide 26.5 mmol/L (21.6-31.8); Globulin 2.1 g/dL (1.6-3.3); Non-African American GFR(CKD) 89.2 (60.0-200.0); Potassium 3.9 mmol/L (3.5-5.5); Total Bilirubin 0.2 mg/dL (0.3-1.2); Total Protein 5.3 g/dL (6.2-8.2)
--- NOTE | 2020-07-11 14:41 | PN ---
PROGRESS NOTE DATE OF SERVICE: 07/11/2020 REASON FOR FOLLOWUP: Right lower extremity cellulitis. INTERVAL HISTORY: The patient is currently afebrile. Patient is breathing more comfortably. Denies having any chest pain or shortness of breath. Did have some cough without any sputum. No nausea, no vomiting, no abdominal pain or diarrhea. PHYSICAL EXAMINATION: Blood pressure 130/83 with a pulse of 80, temperature 98.3. He is 93% on room air. General description is an elderly male, up in the chair in no distress. RESPIRATORY SYSTEM: Unlabored breathing, clear to auscultation anteriorly. HEART: S1, S2. Regular rate and rhythm. ABDOMEN: Soft, no tenderness. LABS: Creatinine 0.8. CBC was not done today. Blood and sputum culture have been negative. DIAGNOSTIC IMPRESSION AND PLAN: Patient with right lower extremity cellulitis and did have overall fluid overload, responded very well to Lasix. Redness of the leg has resolved, switching monitor. He will be given a short course of oral Keflex. Will monitor clinical course closely. MMODL / IJN: [id number] /
[2020-07-11] MEDS: RIVAROXABAN 20 MG TAB PO SCH (18:28)
[2020-07-12] MEDS: HYDROcodone/APAP 5-325MG 1 EACH TAB PO PRN ×4 (03:16→23:59)
[2020-07-12] MEDS: LEVOTHYROXINE 25 MCG TAB PO SCH (06:15)
[2020-07-12] MEDS: FUROSEMIDE 10 MG/ML 4 ML VIAL IV SCH (08:28)
[2020-07-12] MEDS: METOPROLOL SUCCINATE (ER) 50 MG TAB.ER.24H PO SCH (08:29)
[2020-07-12] MEDS: THIAMINE 100 MG TAB PO SCH (08:29)
[2020-07-12] MEDS: PANTOPRAZOLE 40 MG TABLET PO SCH (08:29)
[2020-07-12] MEDS: GABAPENTIN 400 MG CAP PO SCH ×2 (08:29→21:32)
[2020-07-12] MEDS: POTASSIUM CHLORIDE ER 10 MEQ TAB.ER.PRT PO SCH (08:29)
[2020-07-12] MEDS: ARTIFICIAL TEARS-HYPROMELLOSE DROPS 15 ML BTL BOTH EYES SCH ×2 (08:30→21:33)
[2020-07-12] MEDS: AMIODARONE 200 MG TAB PO SCH (08:30)
[2020-07-12] MEDS: SYMBICORT 160-4.5 MCG INHALER INHALATION SCH ×2 (08:44→20:31)
[2020-07-12] MEDS: IPRATROPIUM-ALBUTEROL 3 ML NEB INHALATION SCH ×4 (08:44→20:31)
--- NOTE | 2020-07-12 09:24 | P.PN ---
Subjective 70-year-old male was transferred from [facility] for placement. Patient was recently treated here in this hospital for alcoholic pancreatitis right lower lobe pneumonia. Patient was quite weak didn't qualify for rehab but we're unable to place him in anyrehab and patient was subsequently discharged home with home care. Since he was discharged patient has been falling was quite weak and the patient is also complaining of swelling in the right leg up on examination patient's right leg appeared to be tender with local is of temperature. Patient does have bilateral leg swelling.there is no other significant lab abnormality except for elevated TSH from [facility] patient's creatinine is within normal limitspatient was on Ceftin and azithromycin patient was started on ceftriaxone in place of Ceftin by year.patient was treated for alcohol withdrawals and during his previous hospitalization 07/09/2020 Patient is awake and alert, he states he's wheelchair-bound since 2013 secondary to spinal stenosis as per patient however he was not sure about diagnosis. He lives at home alone, he states that he fell no one to the restroom on Tuesday. Patient states that his pneumonia symptoms are improving, his only very little dyspneic and discomfort is improving. He feels generally weak His been treated for right leg cellulitis however legs on both sides looked very similar with no warmth or redness, patient is complaining more of leg swelling rather than redness and pain. Currently he is on IV Lasix. Also he is been treated for possible right leg cellulitis and infectious disease on the case, currently is on Rocephin and IV vancomycin as per ID team recommendation Patient is also on Xarelto for his history of A. fib. Calcitonin is normal at 0.06 He has a Mcbride catheter and he would like to keep it Follow-up recommendation by PT/OT. 07/10/2020 Patient is awake and alert, however he is in mild distress due to nausea, also is complaining of from epigastric abdominal pain which he states is been going on for months however he has tenderness on the periumbilical and upper abdomen especially on the right side, no rebound tenderness or guarding however he has been constipation for 4-5 days. We are going to do a CT of the abdomen and pelvis with IV and oral contrast, risks including but not limited to nephroto xicity and ALLERGY are explained for the patient and he agrees to the test. 07/11/2020 Patient today is keep doing well, with no nausea, he still has ongoing abdominal pain for about a month which is mild to moderate, he did not have bowel movement. However he thinks he will have one stone and he does not want any laxative and dependent on diet only. GI team evaluated the patient for multiple pancreatic cysts and they recommended MRI or endoscopic ultrasound which can be done as an outpatient at a tertiary care center in 6-8 weeks. Patient also has stage I to 2 pressure ulcer in the right buttock area with no surrounding cellulitis. His right leg cellulitis is significantly improving. He is hemodynamically stable. CBC is a stable. Basic metabolic panel is a stable as well. We will c ontinue monitoring. Patient remains on cefazolin for now. He is also on Xarelto and IV Lasix 40 mg daily. 07/12/2020 Patient is awake and alert, he was doing well and we expected to discharge him today however patient did not feel his ready to go home as he feels generally weak. Physical therapy evaluated him and recommended subacute rehab, this morning patient agrees to go to rehab. This subacute abdominal pain from his pancreatic cyst is mild associated with nausea but no vomiting and he is able to eat. This still have stage I or 2 buttock pressure ulcer which is improving with local therapy. Continue with antibiotics ampicillin which can be changed to Keflex upon discharge. pipe production worker consult is placed pending placement Objective - Vital Signs Vital signs: Vital Signs Temp 98.1 F 07/12/20 07:00 Pulse 78 07/12/20 07:00 Resp 18 07/12/20 07:00 BP 118/77 07/12/20 07:00 Pulse Ox 92 L 07/12/20 07:00 Intake & Output 07/11/20 07/12/20 07/12/20 18:59 06:59 18:59 Intake Total 200 Output Total 3550 Balance -3550 200 Intake: Oral 200 Output: Urine 3550 Other: Voiding Method Urinal Urinal Urinal # Voids 3 2 # Bowel Movements 1 1 - Exam -GENERAL: The patient is alert and oriented x3, not in any acute distress. Morbidly obese HEENT: Pupils are round and equally reacting to light. EOMI. No scleral icterus. No conjunctival pallor. Normocephalic, atraumatic. No pharyngeal erythema. No thyromegaly. CARDIOVASCULAR: S1 and S2 present. No murmurs, rubs, or gallops. PULMONARY: Chest is clear to auscultation, no wheezing or crackles. ABDOMEN: Soft, nontender, nondistended, normoactive bowel sounds. No palpable organomegaly. MUSCULOSKELETAL: No joint swelling or deformity. -EXTREMITIES: No cyanosis, clubbing,. Bilateral leg swelling -NEUROLOGICAL: Gross neurological examination did not reveal any focal deficits. Wheelchair-bound as per patient SKIN: No rashes. no petechiae. - Labs CBC & Chem 7: 07/10/20 05:28 07/11/20 06:21 Labs: Abnormal Lab Results - Last 24 Hours (Table) 07/11/20 Range/Units 06:21 BUN 7.0 L (9.0-27.0) mg/dL BUN/Creatinine Ratio 8.75 L (12.00-20.00) Ratio Glucose 113 H (70-110) mg/dL Calcium 8.4 L (8.7-10.3) mg/dL Total Bilirubin 0.2 L (0.3-1.2) mg/dL AST 57 H (14-35) U/L Total Protein 5.3 L (6.2-8.2) g/dL Albumin 3.20 L (3.80-4.90) g/dL Albumin/Globulin Ratio 1.52 L (1.60-3.17) g/dL Microbiology - Last 24 Hours (Table) 07/07/20 20:00 Blood Culture - Preliminary Blood No Growth after 96 hours 07/07/20 20:15 Blood Culture - Preliminary Blood No Growth after 96 hours 07/08/20 09:19 Gram Stain - Final Sputum Sputum Culture - Final Assessment and Plan Assessment: -Abdominal pain with tenderness and constipation and nausea. We'll check CT of the abdomen and pelvis with IV showed multiple pancreatic cyst, GI recommended outpatient MRI or endoscopic ultrasound -Stage 1-2 buttock ulcer, secondary to pressure ulcer, continue with local denzel atment and measurement -Bilateral leg swelling, possible cellulitis of the right leg but it felt less likely: Patient is on antibiotics per recommendation of consulted infectious disease team. Continue with Lasix. -Hypothyroidism, with TSH more than 10, increase his levothyroxine from 25 up to 50 g daily and patient informed and he agrees -Recent pneumonia patient. Continue with antibiotic, he has minimal or no respiratory symptoms. Improvement -Generalized weakness and falls. Social work and case management are working on his placement. They did work on his placement in the past unable to place him after he was evaluated by multiple facilities -history of alcohol abuse was recently treated for alcohol withdrawals -COPD without any significant exacerbation -atrial fibrillation, presently rate controlled proximal A. fib can you with anti-correlation -History of chronic hep C -Hypertension DVT prophylaxis:'xarelto GI prophylaxis Protonix improvement significantly
[2020-07-12 10:56] LABS: African American GFR (CKD) 109.3 (60.0-200.0); Anion Gap 6.6 mmol/L (4.00-12.00); BUN/Creat Ratio 12.86 Ratio (12.00-20.00); Calcium 8.4 mg/dL (8.7-10.3); Carbon Dioxide 29.4 mmol/L (21.6-31.8); Non-African American GFR(CKD) 94.3 (60.0-200.0)
[2020-07-12] MEDS ORDERED: LORazepam 2 MG/ML INJ IV STA (13:43)
--- NOTE | 2020-07-12 16:09 | PN ---
PROGRESS NOTE DATE OF SERVICE: 07/12/2020 REASON FOR FOLLOWUP: 1. Right lower extremity cellulitis. 2. Diarrhea. INTERVAL HISTORY: Patient is currently afebrile. Patient is feeling better, breathing comfortably. He is slightly upset about getting IV Lasix as his Mcbride has been discontinued and that he has to pee all the time. No chest pain, no shortness of breath or cough. Leg swelling and redness has improved. He is complaining of diarrhea with multiple loose stools. PHYSICAL EXAMINATION: Blood pressure 118/77, pulse of 88, temperature 98.1. He is 92% on room air. General description is an elderly male lying in bed in no distress. Respiratory system: Unlabored breathing, clear to auscultation anteriorly. Heart S1, S2. Regular rate and rhythm. Abdomen soft, no tenderness. LABS: BUN of 9, creatinine 0.7. Blood and sputum culture have been negative. DIAGNOSTIC IMPRESSION AND PLAN: 1. Patient with right lower extremity cellulitis that has been adequately treated. The patient's antibiotic will be discontinued. 2. Patient now with diarrhea, possible antibiotic associated. Hopefully improved after discontinuation of antibiotic. Will add Questran for symptomatic relief. MMODL / IJN: [id number] /
[2020-07-12] MEDS: RIVAROXABAN 20 MG TAB PO SCH (16:43)
[2020-07-12] MEDS: CHOLESTYRAMINE (WITH SUGAR) 4 GM PACKET PO SCH (16:45)
[2020-07-13] MEDS: LEVOTHYROXINE 25 MCG TAB PO SCH (06:03)
[2020-07-13] MEDS: HYDROcodone/APAP 5-325MG 1 EACH TAB PO PRN ×3 (06:03→19:01)
[2020-07-13] MEDS: SYMBICORT 160-4.5 MCG INHALER INHALATION SCH ×2 (07:26→19:45)
[2020-07-13] MEDS: IPRATROPIUM-ALBUTEROL 3 ML NEB INHALATION SCH ×4 (07:26→19:47)
[2020-07-13] MEDS: FUROSEMIDE 10 MG/ML 4 ML VIAL IV SCH (08:32)
[2020-07-13] MEDS: CHOLESTYRAMINE (WITH SUGAR) 4 GM PACKET PO SCH ×3 (08:33→17:53)
[2020-07-13] MEDS: POTASSIUM CHLORIDE ER 10 MEQ TAB.ER.PRT PO SCH (08:33)
[2020-07-13] MEDS: PANTOPRAZOLE 40 MG TABLET PO SCH (08:33)
[2020-07-13] MEDS: GABAPENTIN 400 MG CAP PO SCH ×2 (08:33→21:47)
[2020-07-13] MEDS: AMIODARONE 200 MG TAB PO SCH (08:33)
[2020-07-13] MEDS: THIAMINE 100 MG TAB PO SCH (08:36)
[2020-07-13] MEDS: METOPROLOL SUCCINATE (ER) 50 MG TAB.ER.24H PO SCH (08:36)
[2020-07-13] MEDS: ARTIFICIAL TEARS-HYPROMELLOSE DROPS 15 ML BTL BOTH EYES SCH ×2 (08:36→21:47)
--- NOTE | 2020-07-13 09:13 | P.PN ---
Subjective Progress Note Date: 07/12/20 Principal diagnosis: Pancreatic cysts, acute on chronic pancreatitis, abdominal pain, history of alcohol abuse Patient is seen lying in bed tolerating diet. No nausea or vomiting. Complaining of urinary incontinence. Objective - Vital Signs Vital signs: Vital Signs Temp 98.1 F 07/12/20 07:00 Pulse 78 07/12/20 07:00 Resp 18 07/12/20 07:00 BP 118/77 07/12/20 07:00 Pulse Ox 92 L 07/12/20 07:00 Intake & Output 07/11/20 07/12/20 07/12/20 18:59 06:59 18:59 Intake Total 200 Output Total 3550 1300 Balance -3550 200 -1300 Intake: Oral 200 Output: Urine 3550 1300 Other: Voiding Method Urinal Urinal Urinal # Voids 3 2 # Bowel Movements 1 1 - Exam On physical examination, patient appears comfortable in no apparent distress. HEAD: Normocephalic, atraumatic. EYES: No scleral icterus. No conjunctival injection. MOUTH: No lesions, tongue midline. NECK: Trachea midline, no gross abnormalities. ABDOMEN: Soft, obese and mildly tender to palpation. Bowel sounds are positive. No organomegaly. No guarding or rigidity. EXTREMITIES: No pedal edema. SKIN: No rashes, no jaundice. NEUROLOGIC: Alert and oriented x3. No focal deficits. - Labs CBC & Chem 7: 07/10/20 05:28 07/12/20 06:08 Labs: Abnormal Lab Results - Last 24 Hours (Table) 07/11/20 07/12/20 Range/Units 06:21 06:08 BUN 7.0 L (9.0-27.0) mg/dL BUN/Creatinine Ratio 8.75 L (12.00-20.00) Ratio Glucose 113 H (70-110) mg/dL Calcium 8.4 L 8.4 L (8.7-10.3) mg/dL Total Bilirubin 0.2 L (0.3-1.2) mg/dL AST 57 H (14-35) U/L Total Protein 5.3 L (6.2-8.2) g/dL Albumin 3.20 L (3.80-4.90) g/dL Albumin/Globulin Ratio 1.52 L (1.60-3.17) g/dL Microbiology - Last 24 Hours (Table) 07/07/20 20:00 Blood Culture - Preliminary Blood No Growth after 96 hours 07/07/20 20:15 Blood Culture - Preliminary Blood No Growth after 96 hours 07/08/20 09:19 Gram Stain - Final Sputum Sputum Culture - Final Assessment and Plan (1) Pancreatic cyst Narrative/Plan: 70-year-old male with a known history of alcohol abuse, prior episodes of pancreatitis, hepatitis C for which he received treatment with ribavirin and interferon who [facility] the [facility] with concerns over weakness after recent admission for pneumonia and acute on chronic pancreatitis. Patient with a long- standing history of chronic pancreatitis with acute episodes secondary to alcohol abuse. Denies any recent alcohol use since discharge. Patient had findings of pancreatic cyst on prior imaging which are again redemonstrated prior to current admission with findings also consistent with acute on chronic pancreatitis. Current Visit: No Status: Acute Code(s): K86.2 - CYST OF PANCREAS SNOMED Code(s): 38744083 (2) Acute on chronic pancreatitis Current Visit: No Status: Acute Code(s): K85.90 - ACUTE PANCREATITIS WITHOUT NECROSIS OR INFECTION, UNSP; K86.1 - OTHER CHRONIC PANCREATITIS SNOMED Code(s): 506855717 (3) Alcohol abuse Current Visit: No Status: Acute Code(s): F10.10 - ALCOHOL ABUSE, UNCOMPLICATED SNOMED Code(s): 28615826 (4) Epigastric pain Current Visit: No Status: Acute Code(s): R10.13 - EPIGASTRIC PAIN SNOMED Code(s): 78173650 Plan: supportive care IV fluid hydration Alcohol abstinence Continue to monitor CBC, BMP, LFTs No plans for endoscopic evaluation at this time Would recommend patient have repeat imaging with either MRI of the abdomen or endoscopic ultrasound to tertiary facility in 6-8 weeks for reevaluation of cystic findings on computed tomography scan Other medical management per primary team Thank you for allowing us to participate in the care of the patient
[2020-07-13] MEDS ORDERED: LORazepam 0.5 MG TAB PO PRN (14:14)
[2020-07-13] MEDS ORDERED: TRIMETHOBENZAMIDE 300 MG CAP PO PRN (14:15)
--- NOTE | 2020-07-13 14:18 | P.PN ---
Subjective 70-year-old male was transferred from [facility] for placement. Patient was recently treated here in this hospital for alcoholic pancreatitis right lower lobe pneumonia. Patient was quite weak didn't qualify for rehab but we're unable to place him in anyrehab and patient was subsequently discharged home with home care. Since he was discharged patient has been falling was quite weak and the patient is also complaining of swelling in the right leg up on examination patient's right leg appeared to be tender with local is of temperature. Patient does have bilateral leg swelling.there is no other significant lab abnormality except for elevated TSH from [facility] patient's creatinine is within normal limitspatient was on Ceftin and azithromycin patient was started on ceftriaxone in place of Ceftin by year.patient was treated for alcohol withdrawals and during his previous hospitalization 07/09/2020 Patient is awake and alert, he states he's wheelchair-bound since 2013 secondary to spinal stenosis as per patient however he was not sure about diagnosis. He lives at home alone, he states that he fell no one to the restroom on Tuesday. Patient states that his pneumonia symptoms are improving, his only very little dyspneic and discomfort is improving. He feels generally weak His been treated for right leg cellulitis however legs on both sides looked very similar with no warmth or redness, patient is complaining more of leg swelling rather than redness and pain. Currently he is on IV Lasix. Also he is been treated for possible right leg cellulitis and infectious disease on the case, currently is on Rocephin and IV vancomycin as per ID team recommendation Patient is also on Xarelto for his history of A. fib. Calcitonin is normal at 0.06 He has a Mcbride catheter and he would like to keep it Follow-up recommendation by PT/OT. 07/10/2020 Patient is awake and alert, however he is in mild distress due to nausea, also is complaining of from epigastric abdominal pain which he states is been going on for months however he has tenderness on the periumbilical and upper abdomen especially on the right side, no rebound tenderness or guarding however he has been constipation for 4-5 days. We are going to do a CT of the abdomen and pelvis with IV and oral contrast, risks including but not limited to nephroto xicity and ALLERGY are explained for the patient and he agrees to the test. 07/11/2020 Patient today is keep doing well, with no nausea, he still has ongoing abdominal pain for about a month which is mild to moderate, he did not have bowel movement. However he thinks he will have one stone and he does not want any laxative and dependent on diet only. GI team evaluated the patient for multiple pancreatic cysts and they recommended MRI or endoscopic ultrasound which can be done as an outpatient at a tertiary care center in 6-8 weeks. Patient also has stage I to 2 pressure ulcer in the right buttock area with no surrounding cellulitis. His right leg cellulitis is significantly improving. He is hemodynamically stable. CBC is a stable. Basic metabolic panel is a stable as well. We will c ontinue monitoring. Patient remains on cefazolin for now. He is also on Xarelto and IV Lasix 40 mg daily. 07/12/2020 Patient is awake and alert, he was doing well and we expected to discharge him today however patient did not feel his ready to go home as he feels generally weak. Physical therapy evaluated him and recommended subacute rehab, this morning patient agrees to go to rehab. This subacute abdominal pain from his pancreatic cyst is mild associated with nausea but no vomiting and he is able to eat. This still have stage I or 2 buttock pressure ulcer which is improving with local therapy. Continue with antibiotics ampicillin which can be changed to Keflex upon discharge. youth support worker consult is placed pending placement 07/13/2020 Patient is clinically stable. History of persistent nausea, Tigan is added Also feel anxious and he does not want Xanax. Small dose of Ativan is a provided. GI input is appreciated Patient is medically stable for discharge pending placement. Possible discharge to rehab tomorrow Objective - Vital Signs Vital signs: Vital Signs Temp 98.2 F 07/13/20 07:00 Pulse 98 07/13/20 11:13 Resp 18 07/13/20 07:00 BP 130/60 07/13/20 07:00 Pulse Ox 93 L 07/13/20 07:00 Intake & Output 07/12/20 07/13/20 07/13/20 18:59 06:59 18:59 Intake Total 200 Output Total 1300 1200 500 Balance -1300 -1200 -300 Intake: Oral 200 Output: Urine 1300 1200 500 Other: Voiding Method Urinal Urinal Urinal # Voids 2 1 # Bowel Movements 1 - Exam -GENERAL: The patient is alert and oriented x3, not in any acute distress. Morbidly obese HEENT: Pupils are round and equally reacting to light. EOMI. No scleral icterus. No conjunctival pallor. Normocephalic, atraumatic. No pharyngeal erythema. No thyromegaly. CARDIOVASCULAR: S1 and S2 present. No murmurs, rubs, or gallops. PULMONARY: Chest is clear to auscultation, no wheezing or crackles. ABDOMEN: Soft, nontender, nondistended, normoactive bowel sounds. No palpable organomegaly. MUSCULOSKELETAL: No joint swelling or deformity. -EXTREMITIES: No cyanosis, clubbing,. Bilateral leg swelling -NEUROLOGICAL: Gross neurological examination did not reveal any focal deficits. Wheelchair-bound as per patient SKIN: No rashes. no petechiae. - Labs CBC & Chem 7: 07/10/20 05:28 07/12/20 06:08 Labs: Microbiology - Last 24 Hours (Table) 07/07/20 20:00 Blood Culture - Preliminary Blood No Growth after 120 hours 07/07/20 20:15 Blood Culture - Preliminary Blood No Growth after 120 hours Assessment and Plan Assessment: -Abdominal pain with tenderness and constipation and nausea. We'll check CT of the abdomen and pelvis with IV showed multiple pancreatic cyst, GI recommended outpatient MRI or endoscopic ultrasound -Stage 1-2 buttock ulcer, secondary to pressure ulcer, continue with local treatment and measurement -Bilateral leg swelling, possible cellulitis of the right leg but it felt less likely: Patient is on antibiotics per recommendation of consulted infectious disease team. Continue with Lasix. -Hypothyroidism, with TSH more than 10, increase his levothyroxine from 25 up to 50 g daily and patient informed and he agrees -Recent pneumonia patient. Continue with antibiotic, he has minimal or no respiratory symptoms. Improvement -Generalized weakness and falls. Social work and case management are working on his placement. They did work on his placement in the past unable to place him after he was evaluated by multiple facilities -history of alcohol abuse was recently treated for alcohol withdrawals -COPD without any significant exacerbation -atrial fibrillation, presently rate controlled proximal A. fib can you with anti-correlation -History of chronic hep C -Hypertension DVT prophylaxis:'xarelto GI prophylaxis Protonix improvement significantly
[2020-07-13] MEDS: RIVAROXABAN 20 MG TAB PO SCH (18:16)
--- NOTE | 2020-07-13 18:42 | P.PN ---
Subjective Progress Note Date: 07/13/20 Principal diagnosis: Pancreatic cysts, acute on chronic pancreatitis, abdominal pain, history of alcohol abuse Patient is seen setting bedside today. Tolerating his diet. Still reporting some nausea and anxiety. Objective - Vital Signs Vital signs: Vital Signs Temp 98.2 F 07/13/20 07:00 Pulse 86 07/13/20 07:00 Resp 18 07/13/20 07:00 BP 130/60 07/13/20 07:00 Pulse Ox 93 L 07/13/20 07:00 Intake & Output 07/12/20 07/13/20 07/13/20 18:59 06:59 18:59 Intake Total 200 Output Total 1300 1200 Balance -1300 -1200 200 Intake: Oral 200 Output: Urine 1300 1200 Other: Voiding Method Urinal Urinal Urinal # Voids 2 1 # Bowel Movements 1 - Exam On physical examination, patient appears comfortable in no apparent distress. HEAD: Normocephalic, atraumatic. EYES: No scleral icterus. No conjunctival injection. MOUTH: No lesions, tongue midline. NECK: Trachea midline, no gross abnormalities. ABDOMEN: Soft, obese and mildly tender to palpation. Bowel sounds are positive. No organomegaly. No guarding or rigidity. EXTREMITIES: No pedal edema. SKIN: No rashes, no jaundice. NEUROLOGIC: Alert and oriented x3. No focal deficits. - Labs CBC & Chem 7: 07/10/20 05:28 07/12/20 06:08 Labs: Abnormal Lab Results - Last 24 Hours (Table) 07/12/20 Range/Units 06:08 Calcium 8.4 L (8.7-10.3) mg/dL Microbiology - Last 24 Hours (Table) 07/07/20 20:00 Blood Culture - Preliminary Blood No Growth after 120 hours 07/07/20 20:15 Blood Culture - Preliminary Blood No Growth after 120 hours Assessment and Plan (1) Pancreatic cyst Narrative/Plan: 70-year-old male with a known history of alcohol abuse, prior episodes of pancreatitis, hepatitis C for which he received treatment with ribavirin and interferon who presented to the ospital with concerns over weakness after recent admission for pneumonia and acute on chronic pancreatitis. Patient with a long- standing history of chronic pancreatitis with acute episodes secondary to alcohol abuse. Denies any recent alcohol use since discharge. Patient had findings of pancreatic cyst on prior imaging which are again redemonstrated prior to current admission with findings also consistent with acute on chronic pancreatitis. Current Visit: No Status: Acute Code(s): K86.2 - CYST OF PANCREAS SNOMED Code(s): 60337081 (2) Acute on chronic pancreatitis Current Visit: No Status: Acute Code(s): K85.90 - ACUTE PANCREATITIS WITHOUT NECROSIS OR INFECTION, UNSP; K86.1 - OTHER CHRONIC PANCREATITIS SNOMED Code(s): 965606594 (3) Alcohol abuse Current Visit: No Status: Acute Code(s): F10.10 - ALCOHOL ABUSE, UNCOMPLICATED SNOMED Code(s): 10968926 (4) Epigastric pain Current Visit: No Status: Acute Code(s): R10.13 - EPIGASTRIC PAIN SNOMED Code(s): 94220417 Plan: supportive care IV fluid hydration Alcohol abstinence Continue to monitor CBC, BMP, LFTs No plans for endoscopic evaluation at this time Would recommend patient have repeat imaging with either MRI of the abdomen or endoscopic ultrasound to tertiary facility in 6-8 weeks for reevaluation of cystic findings on computed tomography scan Other medical management per primary team Thank you for allowing us to participate in the care of the patient
--- NOTE | 2020-07-14 02:57 | PN ---
PROGRESS NOTE DATE OF SERVICE: 07/13/2020 REASON FOR FOLLOWUP: 1. Right lower extremity cellulitis. 2. Diarrhea. INTERVAL HISTORY: The patient is currently afebrile. Still complaining of feeling weak and tired. No chest pain. No shortness of breath. Occasional cough, which is dry in nature. No nausea, no vomiting. No abdominal pain. No pain to the lower extremities. Complaining of diarrhea. PHYSICAL EXAMINATION: Blood pressure 116/67, pulse of 62, temperature 98. He is 93% on room air. General description is an elderly male up in the chair in no distress. RESPIRATORY SYSTEM: Unlabored breathing, clear to auscultation anteriorly. HEART: S1, S2. Regular rate and rhythm. ABDOMEN: Soft. No tenderness. EXTREMITIES: Swelling and redness has resolved. LABS: Blood culture negative. No CBC done today. DIAGNOSTIC IMPRESSION AND PLAN: 1. Patient with acute right lower extremity cellulitis that has been adequately treated. The patient has completed his antibiotic therapy. 2. Patient with diarrhea. Questran has been added to continue. Clinical suspicion low for Clostridium difficile colitis. No need for checking stool for Clostridium difficile or any empiric antibiotics. MMODL / IJN: [id number] /
[2020-07-14] MEDS: HYDROcodone/APAP 5-325MG 1 EACH TAB PO PRN ×3 (05:57→12:33)
[2020-07-14] MEDS: LEVOTHYROXINE 25 MCG TAB PO SCH (05:57)
[2020-07-14 08:08] VITALS: RESP 18
[2020-07-14] MEDS: FUROSEMIDE 10 MG/ML 4 ML VIAL IV SCH ×2 (09:16→09:26)
[2020-07-14] MEDS: THIAMINE 100 MG TAB PO SCH (09:16)
[2020-07-14] MEDS: ARTIFICIAL TEARS-HYPROMELLOSE DROPS 15 ML BTL BOTH EYES SCH ×2 (09:16→09:26)
[2020-07-14] MEDS: AMIODARONE 200 MG TAB PO SCH (09:16)
[2020-07-14] MEDS: POTASSIUM CHLORIDE ER 10 MEQ TAB.ER.PRT PO SCH (09:16)
[2020-07-14] MEDS: METOPROLOL SUCCINATE (ER) 50 MG TAB.ER.24H PO SCH (09:16)
[2020-07-14] MEDS: PANTOPRAZOLE 40 MG TABLET PO SCH (09:16)
[2020-07-14] MEDS: GABAPENTIN 400 MG CAP PO SCH (09:16)
[2020-07-14] MEDS: CHOLESTYRAMINE (WITH SUGAR) 4 GM PACKET PO SCH (09:17)
[2020-07-14] MEDS: SYMBICORT 160-4.5 MCG INHALER INHALATION SCH (09:18)
[2020-07-14] MEDS: IPRATROPIUM-ALBUTEROL 3 ML NEB INHALATION SCH ×3 (09:18→15:26)
--- NOTE | 2020-07-14 13:30 | P.PN ---
Subjective Progress Note Date: 07/14/20 Principal diagnosis: Pancreatic cyst Patient was seen and examined sitting up in a bedside chair. Patient states his breathing has improved. He states he has slight nausea that seems to be continuous. He denies any vomiting or abdominal pain. Diarrhea has improved some. Objective - Vital Signs Vital signs: Vital Signs Temp 98.0 F 07/14/20 07:00 Pulse 60 07/14/20 13:04 Resp 18 07/14/20 07:00 BP 118/68 07/14/20 07:00 Pulse Ox 95 07/14/20 07:00 Intake & Output 07/13/20 07/14/20 07/14/20 18:59 06:59 18:59 Intake Total 320 Output Total 2500 100 Balance -2180 -100 Intake: Oral 320 Output: Urine 2500 100 Other: Voiding Method Urinal Urinal Urinal # Voids 1 - Exam General appearance: The patient is alert, oriented, in no acute distress. HET: Head is normocephalic and atraumatic. Neck: Supple without lymphadenopathy. Trachea midline. Abdomen: Soft, obese, mild tenderness to palpation along the epigastric and left upper quadrant region, nondistended with bowel sounds. Guarding or rigidity Extremities: Pedal edema bilaterally, with compression stockings on. Neurological: No focal deficits. Alert and oriented 3.. - Labs CBC & Chem 7: 07/10/20 05:28 07/12/20 06:08 Labs: Microbiology - Last 24 Hours (Table) 07/07/20 20:15 Blood Culture - Final Blood No Growth after 144 hours 07/07/20 20:00 Blood Culture - Final Blood No Growth after 144 hours Assessment and Plan (1) Pancreatic cyst Narrative/Plan: 70-year-old male with a known history of alcohol abuse, prior episodes of pancreatitis, hepatitis C for which he received treatment with ribavirin and interferon who presented to the ospital with concerns over weakness after recent admission for pneumonia and acute on chronic pancreatitis. Patient with a long- standing history of chronic pancreatitis with acute episodes secondary to alcohol abuse. Denies any recent alcohol use since discharge. Patient had findings of pancreatic cyst on prior imaging which are again redemonstrated randolph or to current admission with findings also consistent with acute on chronic pancreatitis. Current Visit: No Status: Acute Code(s): K86.2 - CYST OF PANCREAS SNOMED Code(s): 92685981 (2) Acute on chronic pancreatitis Current Visit: No Status: Acute Code(s): K85.90 - ACUTE PANCREATITIS WITHOUT NECROSIS OR INFECTION, UNSP; K86.1 - OTHER CHRONIC PANCREATITIS SNOMED Code(s): 394878750 (3) Alcohol abuse Current Visit: No Status: Acute Code(s): F10.10 - ALCOHOL ABUSE, UNCOMPLI CATED SNOMED Code(s): 39022992 (4) Epigastric pain Current Visit: No Status: Acute Code(s): R10.13 - EPIGASTRIC PAIN SNOMED Code(s): 64985539 Plan: supportive care IV fluid hydration Alcohol abstinence Continue to monitor CBC, BMP, LFTs And Zofran IV push as needed for nausea No plans for endoscopic evaluation at this time Would recommend patient have repeat imaging with either MRI of the abdomen or endoscopic ultrasound to tertiary facility in 6-8 weeks for reevaluation of cystic findings on computed tomography scan Other medical management per primary team Thank you for allowing us to participate in the care of the patient The impression and plan of care has been dictated as directed. Dr.K Alvarez I performed a history and examination of this patient, discussed the same with the dictator. I agree with the dictator's note ,documented as a scribe. Any additional findings or plans will be noted.
[2020-07-14 14:28] VITALS: BP 108/70; PULSE 67; TEMP 97.6
--- NOTE | 2020-07-14 14:31 | PN ---
PROGRESS NOTE DATE OF SERVICE: 07/14/2020 REASON FOR FOLLOW UP: 1. Right lower extremity cellulitis. 2. Diarrhea. INTERVAL HISTORY: The patient is currently afebrile. Patient is feeling better with no cough. Patient denies having any chest pain. Did have some cough with some sputum, no nausea, no vomiting, no abdominal pain. Overall redness and swelling has improved. PHYSICAL EXAMINATION: Blood pressure 119/68, pulse of 60, temperature 98. He is 95% on room air. General description is an elderly male, up in the chair in no distress. RESPIRATORY SYSTEM: Unlabored breathing, clear to auscultation anteriorly. HEART: S1, S2. Regular rate and rhythm. ABDOMEN: Soft, no tenderness. LABS: Creatinine 0.79. Sputum culture has been negative. DIAGNOSTIC IMPRESSION AND PLAN: 1. Patient with right lower extremity cellulitis that has been adequately treated. No further antibiotics. 2. The patient diarrhea possible antibiiotic associated. Did respond with antibiotic and Questran to continue for and continue with supportive care. MMODL / IJN: [id number] /
[2020-07-14] MEDS ORDERED: LOPERAMIDE 2 MG CAP PO PRN (14:38)
[2020-07-14] MEDS ORDERED: FAMOTIDINE 20 MG/2 ML VIAL IV SCH (21:00)
--- NOTE | 2020-07-15 00:30 | P.DS ---
Providers Date of admission: 07/09/20 08:24 Attending physician: Zoila Carlisle Consults: 07/08/20 12:57 Consult Physician Routine Consulting Provider: Riddhi Aleman Consult Reason/Comments: cellulitis Do you want consulting provider notified?: Yes 07/10/20 12:38 Consult Physician Urgent Consulting Provider: Brook Alvarez Consult Reason/Comments: pancreatic cyst vs massses Do you want consulting provider notified?: Yes Primary care physician: [facility] Hospital Course: Diagnoses: -Abdominal pain with tenderness and nausea. CT of the abdomen with IV showed multiple pancreatic cyst, GI recommended outpatient MRI or endoscopic ultrasound -Stage 1-2 buttock ulcer, secondary to pressure ulcer, continue with local treatment, improved -Bilateral leg swelling, possible cellulitis of the right leg but it felt less likely: Improved with antibiotic and Lasix. -Hypothyroidism with constipation, with TSH more than 10, increase his levothyroxine from 25 up to 50 g daily and patient informed and he agrees -Recent pneumonia patient. Continue with antibiotic, he has no respiratory symptoms. Improvement -Generalized weakness and falls. Referred for ECF for subacute rehab -history of alcohol abuse was recently treated for alcohol withdrawals. His last drink was 1 month prior to admission when he started having abdominal pain -COPD without any significant exacerbation -atrial fibrillation, presently rate controlled , on xarelto -History of chronic hep C -Hypertension Hospital course: 70-year-old male was transferred from [facility] for placement. Patient was recently treated here in this hospital for alcoholic pancreatitis right lower lobe pneumonia. Patient was quite weak didn't qualify for rehab but we're unable to place him in any rehab and patient was subsequently discharged home with home care. Since he was discharged patient has been falling was quite weak and the patient is also complaining of swelling in the right leg , suspected cellulitis, patient treated with cefazolin by ID team recommendation and he showed interval improvement, his leg swelling improved with IV Lasix. Antibiotics were discontinued by ID team. GI team evaluated the patient and they recommend ((patient have repeat imaging with either MRI of the abdomen or endoscopic ultrasound to tertiary facility in 6-8 weeks for reevaluation of cystic findings on computed tomography scan)) up patient informed , risks including but not limited to cancer are explained and he agrees, I discussed the case with his PCP and he kindly took note of this recommendation to refer him for outpatient GI clinic. The staff to try to make an appointment for him when Dr. Cortez and we left a message on the callback number. As above antibiotics were stopped. Patient provided with Zofran and Imodium upon his request. He states he has another prescription. Problems and management plan were discussed with the patient and he verbalized understanding and acceptance Patient was found stable and can be discharged home however he needs follow-up as an outpatient. Patient was instructed to follow up with PCP within one week and patient agrees. Patient also was instructed to follow up with Raven Jackson dispatcher service chief in one week and he agrees. Patient agrees with his appointment on 07/29 Gen: patient is a AAOx3, no distress CVS: S1-S2, RRR, no murmur Lungs: B/L CTA, no wheezing Abdomen: soft, no distention, no tenderness, positive bowel sounds Extremity: no leg edema or induration Time spent more than 35 minutes Patient Condition at Discharge: Fair Plan - Discharge Summary Discharge Rx Participant: No New Discharge Prescriptions: New Ondansetron [Zofran] 4 mg PO Q8HR PRN 5 Days #15 tab PRN Reason: Nausea And Vomiting Loperamide [Imodium] 2 mg PO QID PRN #15 cap PRN Reason: Diarrhea Continue Amiodarone HCl [Pacerone] 200 mg PO DAILY Rivaroxaban [Xarelto] 20 mg PO AC-SUPPER Omeprazole [PriLOSEC] 20 mg PO BID Levothyroxine Sodium [Synthroid] 25 mcg PO AC-BRKFST Gabapentin [Neurontin] 800 mg PO BID Thiamine [Vitamin B-1] 100 mg PO DAILY #30 tab Carboxymethylcellulose Sodium [Refresh Tears] 1 drop BOTH EYES BID HYDROcodone/APAP 5-325MG [Velva 5-325] 1 tab PO Q6H PRN PRN Reason: Pain Hydrocortisone Pr Cream [Proctosol-Hc 2.5%] 1 applic RECTAL BID #30 applic Potassium Chloride [Klor-Con 20] 10 meq PO DAILY #0 Furosemide [Lasix] 40 mg PO DAILY #0 Metoprolol Succinate (ER) [Toprol XL] 50 mg PO DAILY #0 Albuterol Inhaler [Ventolin Hfa Inhaler] 2 puff INHALATION RT-QID PRN #1 inhaler PRN Reason: Shortness Of Breath Or Wheezing Fluticasone/Salmeterol [Airduo Respiclick 232-14 Mcg] 1 puff INHALATION RT- BID Discontinued Cefuroxime Axetil [Ceftin] 500 mg PO BID 4 Days #8 tab Discharge Medication List Amiodarone HCl [Pacerone] 200 mg PO DAILY 08/03/18 [History] Rivaroxaban [Xarelto] 20 mg PO AC-SUPPER 08/03/18 [History] Gabapentin [Neurontin] 800 mg PO BID 11/27/18 [History] Levothyroxine Sodium [Synthroid] 25 mcg PO AC-BRKFST 11/27/18 [History] Omeprazole [PriLOSEC] 20 mg PO BID 11/27/18 [History] Thiamine [Vitamin B-1] 100 mg PO DAILY #30 tab 11/28/18 [Rx] Carboxymethylcellulose Sodium [Refresh Tears] 1 drop BOTH EYES BID 06/29/20 [History] HYDROcodone/APAP 5-325MG [Velva 5-325] 1 tab PO Q6H PRN 06/29/20 [History] Albuterol Inhaler [Ventolin Hfa Inhaler] 2 puff INHALATION RT-QID PRN #1 inhaler 07/04/20 [Rx] Furosemide [Lasix] 40 mg PO DAILY #0 07/04/20 [Rx] Hydrocortisone Pr Cream [Proctosol-Hc 2.5%] 1 applic RECTAL BID #30 applic 07/04/20 [Rx] Metoprolol Succinate (ER) [Toprol XL] 50 mg PO DAILY #0 07/04/20 [Rx] Potassium Chloride [Klor-Con 20] 10 meq PO DAILY #0 07/04/20 [Rx] Fluticasone/Salmeterol [Airduo Respiclick 232-14 Mcg] 1 puff INHALATION RT-BID 07/07/20 [History] Loperamide [Imodium] 2 mg PO QID PRN #15 cap 07/14/20 [Rx] Ondansetron [Zofran] 4 mg PO Q8HR PRN 5 Days #15 tab 07/14/20 [Rx] Follow up Appointment(s)/Referral(s): [facility] [NON-STAFF] - Anil Grier DO [REFERRING] - 1 Week Brook Alvarez MD [STAFF PHYSICIAN] - 07/29/20 1:30 pm (Follow-up with GI. We recommend doing pancreatic MRI versus endoscopic ultrasound Patient to arrive 30mins prior to procedure and bring ID and insurance card to appointment) Patient Instructions/Handouts: COPD (Chronic Obstructive Pulmonary Disease) (DC), Weakness (DC), Pneumonia (DC) Activity/Diet/Wound Care/Special Instructions: Heart healthy diet Activity is limited till you see your doctor Discharge Disposition: HOME WITH HOME HEALTH SERVICES
--- NOTE | 2020-07-15 12:44 | CDI ---
Documentation Clarification Form Date: 07/15/20 From: Mary Anne Amos Phone: If you have a question about this query, please contact Kylah Wayne, Barrel Waterer at [phone] between 8am and 5pm. Admit Date: 07/09/20 Discharge Date: 07/14/20 Patient Name: HARJIT HAHN Visit Number: [id number] ATTENTION: The Clinical Documentation Specialists (CDI) and [facility] Coding Staff appreciate your assistance in clarifying documentation. Please respond to the clarification below the line at the bottom and electronically sign. The CDI & [facility] Coding staff will review the response and follow-up if needed. Please note: Queries are made part of the Legal Health Record. If you have any questions, please contact the author of this message via ITS. Dear Dr. Con Diaz, Liver cirrhosis is documented in the ED Note, H&P, both consults, and PNs 07/10 & 07/11. Patient history/risk factors: history of hepatitis c-treated, alcohol acute & chronic pancreatitis, pancreatic cyst, cellulitis of RLE, pneumonia, AECOPD w lower respiratory infection, morbid obesity, BMI 40.0, antibiotic induced diarrhea Clinical Indicators: Patient had repeat imaging prior to current admission with findings of cirrhosis without hepatic masses as well as cystic versus necrotic pancreatic body/tail measuring 10 x 6 cm with differential including pseudocyst formation similar to prior findings. Labs: Bilirubin-0.2, Amylase-55, Lipase-27, Cr-0.71 Vital Signs: T-100.3, P-102, R-16, BP-114/69-O2-93 Treatment: antibiotics, Questran In your professional opinion, can the etiology of the liver cirrhosis be further specified, if known? Alcoholic Alcoholic, with ascites Alcoholic, fatty Other, please specify Unable to determine Unable to determine MTDD
== END 2020-07-14 16:04 | disposition home health service (06) | DRG 602 ==
LOC: EC 19:07 → 4SSUR 19:42 → OBSVTOIN 07-09 08:24 → 4SSUR 07-09 18:03
PROVIDERS: ADMIT Internal Medicine; ATTEND Internal Medicine
DX: L03.115 Cellulitis of right lower limb (principal); J18.9 Pneumonia, unspecified organism; K85.20 Alcohol induced acute pancreatitis without necrosis or infection; K86.2 Cyst of pancreas; J44.0 Chronic obstructive pulmonary disease with (acute) lower respiratory infection; K86.0 Alcohol-induced chronic pancreatitis; Z68.41 Body mass index [BMI] 40.0-44.9, adult; L89.311 Pressure ulcer of right buttock, stage 1; I11.0 Hypertensive heart disease with heart failure; I50.9 Heart failure, unspecified; E66.01 Morbid (severe) obesity due to excess calories; I48.0 Paroxysmal atrial fibrillation; Z20.828 Contact with and (suspected) exposure to other viral communicable diseases; F10.10 Alcohol abuse, uncomplicated; T36.95XA Adverse effect of unspecified systemic antibiotic, initial encounter; I44.0 Atrioventricular block, first degree; E03.9 Hypothyroidism, unspecified; M48.00 Spinal stenosis, site unspecified; R32 Unspecified urinary incontinence; F41.9 Anxiety disorder, unspecified; K59.00 Constipation, unspecified; K74.60 Unspecified cirrhosis of liver; H26.9 Unspecified cataract; R29.6 Repeated falls; M19.90 Unspecified osteoarthritis, unspecified site; F17.210 Nicotine dependence, cigarettes, uncomplicated; Z79.890 Hormone replacement therapy; Z79.899 Other long term (current) drug therapy; Z79.01 Long term (current) use of anticoagulants; Z91.81 History of falling; Z86.19 Personal history of other infectious and parasitic diseases; Z86.14 Personal history of Methicillin resistant Staphylococcus aureus infection; Z90.89 Acquired absence of other organs; Z98.890 Other specified postprocedural states; Z99.3 Dependence on wheelchair; Z87.828 Personal history of other (healed) physical injury and trauma; Z82.49 Family history of ischemic heart disease and other diseases of the circulatory system; Z80.0 Family history of malignant neoplasm of digestive organs; Z80.1 Family history of malignant neoplasm of trachea, bronchus and lung
CPT/HCPCS: 71046; 80048; 80053; 82150; 82565; 82607; 83690; 84145; 84439; 84443; 85025; 86140; 87040; 87070; 87205; 87502; 93005; 94640; 94760; 96374; 99285

== ENCOUNTER 2020-08-03 04:51 | Inpatient (IN) | payer OTHER ==
[2020-08-03] MEDS ORDERED: NALOXONE 0.4 MG/ML 1 ML VIAL IV PRN (05:25)
[2020-08-03] MEDS ORDERED: IPRATROPIUM-ALBUTEROL 3 ML NEB INHALATION STA (05:26)
[2020-08-03] MEDS ORDERED: THIAMINE 100 MG/ML 2 ML VIAL IM STA (05:28)
[2020-08-03] MEDS ORDERED: LORazepam 2 MG/ML INJ IV PRN (05:28)
[2020-08-03 05:29] LABS: Anisocytosis Slight; Basophils % (A) 1 %; Eosinophils # (A) 0.1 k/uL (0-0.7); Eosinophils % (A) 2 %; HCT 38.1 % (39.0-53.0); HGB 12.3 gm/dL (13.0-17.5); Lymphocytes # (A) 0.8 k/uL (1.0-4.8); Lymphocytes % (A) 12 %; MCH 32.9 pg (25.0-35.0); MCHC 32.3 g/dL (31.0-37.0); MCV 101.8 fL (80.0-100.0); Macrocytosis Slight; Mean Platelet Volume 7.1; Monocytes # (A) 0.4 k/uL (0-1.0); Monocytes % (A) 7 %; Neutrophils # (A) 5.1 k/uL (1.3-7.7); Neutrophils % (A) 78 %; Platelet Count 153 k/uL (150-450); RBC 3.74 m/uL (4.30-5.90); RDW 16.3 % (11.5-15.5); WBC 6.5 k/uL (3.8-10.6)
[2020-08-03 05:38] LABS: ALT 16 U/L (4-49); AST 64 U/L (17-59); African American GFR (CKD) >90 (>60 ml/min/1.73 sqM); Albumin 3.4 g/dL (3.5-5.0); Alkaline Phosphatase 108 U/L (38-126); Anion Gap 7 mmol/L; Blood Urea Nitrogen 9 mg/dL (9-20); Calcium 8.5 mg/dL (8.4-10.2); Carbon Dioxide 24 mmol/L (22-30); Chloride 103 mmol/L (98-107); Glucose 105 mg/dL (74-99); INR 1.1 (<1.2); Magnesium 1.5 mg/dL (1.6-2.3); Non-African American GFR(CKD) >90 (>60 ml/min/1.73 sqM); Partial Thromboplastin Time 23.4 sec (22.0-30.0); Potassium 3.7 mmol/L (3.5-5.1); Prothrombin Time 10.9 sec (9.0-12.0); Sodium 134 mmol/L (137-145); Total Bilirubin 0.9 mg/dL (0.2-1.3); Total Protein 6.3 g/dL (6.3-8.2)
[2020-08-03] MEDS: DILTIAZEM 125 MG in SODIUM CHLORIDE 0.9% 100 ML IV SCH ×2 (05:42→23:00)
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
--- NOTE | 2020-08-03 06:03 | XR ---
EXAM: XR Chest, 2 Views CLINICAL HISTORY: ITS.REASON XR Reason: hyoxia TECHNIQUE: Frontal and lateral views of the chest. COMPARISON: 07/08/2020 FINDINGS: Lungs: No consolidation or mass. Pleural space: No effusion. Heart: Unchanged cardiomegaly. Bones/joints: No acute findings. IMPRESSION: No acute cardiopulmonary process.
[2020-08-03] MEDS ORDERED: Magnesium Replacement Protocol 1 EACH MISC MISCELLANE PRN (08:03)
[2020-08-03] MEDS ORDERED: METOPROLOL SUCCINATE (ER) 50 MG TAB.ER.24H PO SCH (09:00)
[2020-08-03] MEDS ORDERED: AMIODARONE 200 MG TAB PO SCH (09:00)
[2020-08-03] MEDS ORDERED: METOPROLOL SUCCINATE (ER) 50 MG TAB.ER.24H PO STA (09:22)
[2020-08-03] MEDS: HYDROcodone/APAP 5-325MG 1 EACH TAB PO PRN ×2 (10:34→22:06)
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
[2020-08-03] MEDS: MAGNESIUM SULFATE-D5W PMX 1 GM in DEXTROSE/WATER 1 100ML.BAG IVPB SCH ×2 (10:35→13:41)
[2020-08-03] MEDS: FUROSEMIDE 10 MG/ML 4 ML VIAL IV SCH ×2 (10:35→21:28)
[2020-08-03 11:19] LABS: T4, Free (Free Thyroxine) 0.88 ng/dL (0.78-2.19)
[2020-08-03] MEDS: PANTOPRAZOLE 40 MG TABLET PO SCH (11:22)
[2020-08-03] MEDS: LORazepam 2 MG/ML INJ IV PRN ×4 (11:22→23:07)
--- NOTE | 2020-08-03 11:39 | CONS ---
CONSULTATION DATE OF CONSULTATION: 08/03/2020. REASON FOR CONSULTATION: Abdominal pain, acute alcoholic intoxication. HISTORY OF PRESENT ILLNESS: The patient is a 70-year-old white male with history of heavy alcohol abuse who was just discharged from the hospital 3 weeks ago at which time he was admitted with acute pancreatitis. He came back to the emergency room yesterday with acute alcoholic intoxication and unable to take care of himself. Apparently, he was found at his home covered in feces, very intoxicated. He was brought to the emergency room and subsequently admitted to the hospital for further evaluation. This morning he is feeling much better. He is more awake and alert. He is complaining of some abdominal pain mostly in the left upper quadrant area. No nausea or vomiting. Has been having diarrhea with 2 loose bowel movements daily. No blood or mucus in the stool. PAST MEDICAL HISTORY: Significant for alcohol abuse, atrial fibrillation, DVT, hypertension, degenerative joint disease, hypothyroidism. PAST SURGICAL HISTORY: Tonsillectomy, left leg surgery. MEDICATIONS: Medications at home include Pacerone, Xarelto, Neurontin, Synthroid, Prilosec, [place]. ALLERGIES: None. SOCIAL HISTORY: Chronic smoker, heavy alcohol abuse. FAMILY HISTORY: Mother coronary artery disease and stomach cancer. Father had lung cancer. REVIEW OF SYSTEMS: CARDIOPULMONARY: No chest pain or shortness of breath. : No dysuria or hematuria. MUSCULOSKELETAL: Chronic back pain. NEUROLOGY: Unremarkable. PSYCHIATRIC: Anxiety and depression. ENT: Vision unremarkable. CONSTITUTIONAL: No recent weight loss. No fever, chills, night sweats. HEMATOLOGY: Unremarkable. PHYSICAL EXAMINATION: Blood pressure 119/67, pulse rate 122, temperature 99. HEENT: Examination unremarkable. Sclerae anicteric. Oral cavity no lesions. NECK: No JVD. CHEST: Clear to auscultation. HEART: Regular rate and rhythm. ABDOMEN: Soft, it was obese. There was mild tenderness in the epigastric and left upper quadrant area. Rest of the abdomen was benign. EXTREMITIES: No pedal edema. NEURO: He is alert, oriented to name and place, not to time. LABS: From today, WBC 6.5, hemoglobin 12.3, platelets 153. PT/INR is normal. BUN 9, creatinine 0.72. AST and ALT are 64 and 16 respectively. T-bilirubin 0.9, alkaline phosphatase 108. Troponin 0.038. Lipase 334. Albumin 3.4. TSH is 14.1. IMPRESSION: 1. Acute alcoholic intoxication, resolved. 2. Left upper quadrant abdominal pain, probably related to mild exacerbation of chronic pancreatitis. Lipase is minimally elevated. The patient with history of heavy alcohol abuse. He had a hospitalization about 3 weeks ago for a flare up of pancreatitis. 3. History of heavy alcohol abuse. 4. Atrial fibrillation with uncontrolled rate but today better, presently on Xarelto. 5. Mild elevation of serum transaminases secondary to chronic liver disease. 6. History of chronic hepatitis C infection. RECOMMENDATIONS: 1. Stool studies for C difficile toxin to evaluate for diarrhea. 2. Advance diet as tolerated. 3. Symptomatic and supportive care. 4. Abstinence from alcohol. 5. Watch for alcohol withdrawal and DTs. 6. Will follow with you closely. Thank you for this consultation. WIN / LORIE: [phone] /
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
[2020-08-03] MEDS: DOXYCYCLINE 100 MG in SODIUM CHLORIDE 0.9% 100 ML IVPB SCH ×2 (13:44→21:28)
[2020-08-03] MEDS: methylPREDNISolone SOD SUCCI 40 MG/ML 1 ML VIAL IV SCH ×2 (13:44→21:27)
[2020-08-03] MEDS: THIAMINE 100 MG TAB PO SCH (18:17)
[2020-08-03] MEDS: RIVAROXABAN 20 MG TAB PO SCH (18:17)
[2020-08-03 20:20] LABS: Glucose,Whole Blood 159 mg/dL (75-99)
[2020-08-03] MEDS: INSULIN ASPART (NovoLOG) 100 UNIT/ML VIAL SQ SCH (21:28)
[2020-08-03] MEDS: AMIODARONE 200 MG TAB PO SCH (21:28)
[2020-08-04] MEDS: LORazepam 2 MG/ML INJ IV PRN ×5 (01:13→22:04)
[2020-08-04] MEDS: methylPREDNISolone SOD SUCCI 40 MG/ML 1 ML VIAL IV SCH ×3 (04:30→20:24)
[2020-08-04 06:11] LABS: Glucose,Whole Blood 165 mg/dL (75-99)
[2020-08-04] MEDS: THIAMINE 100 MG TAB PO SCH ×2 (06:44→15:19)
[2020-08-04] MEDS: INSULIN ASPART (NovoLOG) 100 UNIT/ML VIAL SQ SCH ×4 (06:44→20:24)
[2020-08-04] MEDS: PANTOPRAZOLE 40 MG TABLET PO SCH (06:44)
[2020-08-04] MEDS ORDERED: LEVOTHYROXINE 25 MCG TAB PO SCH (07:30)
[2020-08-04] MEDS: DOXYCYCLINE 100 MG in SODIUM CHLORIDE 0.9% 100 ML IVPB SCH ×2 (08:31→20:24)
[2020-08-04] MEDS: POTASSIUM CHLORIDE ER 10 MEQ TAB.ER.PRT PO SCH (08:32)
[2020-08-04] MEDS: METOPROLOL SUCCINATE (ER) 50 MG TAB.ER.24H PO SCH (08:32)
[2020-08-04] MEDS: FUROSEMIDE 10 MG/ML 4 ML VIAL IV SCH ×2 (08:32→20:23)
[2020-08-04] MEDS: AMIODARONE 200 MG TAB PO SCH ×2 (08:32→20:23)
[2020-08-04 08:55] LABS: African American GFR (CKD) >90 (>60 ml/min/1.73 sqM); Anion Gap 3 mmol/L; Blood Urea Nitrogen 12 mg/dL (9-20); Calcium 8.6 mg/dL (8.4-10.2); Carbon Dioxide 33 mmol/L (22-30); Chloride 98 mmol/L (98-107); Glucose 186 mg/dL (74-99); Magnesium 1.8 mg/dL (1.6-2.3); Non-African American GFR(CKD) >90 (>60 ml/min/1.73 sqM); Potassium 3.9 mmol/L (3.5-5.1); Sodium 134 mmol/L (137-145)
[2020-08-04] MEDS ORDERED: METOPROLOL SUCCINATE (ER) 50 MG TAB.ER.24H PO SCH (09:00)
[2020-08-04 11:40] LABS: Glucose,Whole Blood 168 mg/dL (75-99)
[2020-08-04] MEDS: HYDROcodone/APAP 5-325MG 1 EACH TAB PO PRN ×2 (12:15→20:22)
--- NOTE | 2020-08-04 12:46 | P.PN ---
Subjective This is a pleasant 70 years old male with multiple medical problems including multiple pancreatic cysts, stage II buttock ulcer and pressure ulcer, bilateral leg swelling, hypothyroidism with constipation, recent pneumonia, recent Cellulitis, generalized weakness and falls, alcohol abuse and alcohol withdrawal, COPD, atrial fibrillation on Xarelto, chronic hepatitis C and hypertension As per documentation He was transferred from [facility] for alcohol intoxication and inability to care for him where he was found home covered with his own feces and intoxicated, in the hospital he developed A. fib and RVR. On the presentation patient had abdominal pain and diarrhea and he attributed it to not getting [place] as he ran out of it for 2 days prior to hospitalization, his chronic abdominal pain become more severe. Also he started drinking alcohol because of family member . He was transferred to our hospital for tachycardia and tremors as per documentation Patient is telling me that last time we send him to rehab they can come out and he does not know why as he claims. At home he was drinking alcohol about half a gallon of recurrent or less and smokes about 1 pack per day, patient is counseled to quit and he agrees but he declines nicotine patch. He denies illicit drugs. He states he he called the ambulance by himself because he was having same pancreatic pain but more severe and his been short of breath with coughing and some white to yellow phlegm. No chest pain Currently patient still on Cardizem drip [facility] looks stable, his tachycardic with heart rate 118-122. He saturating 96% on 3 L oxygen via nasal cannula. CBC is unremarkable except for mild anemia with hemoglobin 12.3. Lymphocytes his low 0.8, INR is normal 1.1, electrolytes and creatinine are unremarkable. Magnesium is low at 1.5, troponin is elevated at 0.038. ALT is normal but AST slightly up at 64, total bilirubin is normal at 0.9. Chest x-ray: No acute cardiopulmonary process. Patient magnesium is been replaced and placed for cartilage team on Lasix 40 mg twice daily. MAPS was checked on 08/03 and patient is on Trent[place] 5-325 pills for 30 days 08/04/2020 Patient today's awake but he failed generally weak and tired. His breathing is better than yesterday, no significant coughing. No chest pain. He still has s ome epigastric abdominal pain at 810 but that does not look bothering him a lot. i reviewed, his blood pressure is 84/47, however patient is asymptomatic. We will keep monitoring his blood pressure. He saturating 93% on 3 L oxygen via nasal cannula. BMP and magnesium are unremarkable and sugar is controlled. Levothyroxine was increased today by cardiology team from 25 up to 50 g and agree with that. And GI team are following the patient closely. Remains on Xarelto and Cardizem. He's also on Solu-Medrol and doxycycline and Lasix IV 40 mg twice daily for his COPD and A. fib with RVR And the fluid overload i discussed the case with physical therapy team, possibly patient will need ECF for rehab Review of Systems CONSTITUTIONAL: No fever, no malaise, no fatigue. HEENT: No recent visual problems or hearing problems. Denied any sore throat. CARDIOVASCULAR: No orthopnea, PND, no palpitations, no syncope. PULMONARY: No shortness of breath, no cough, no hemoptysis. GASTROINTESTINAL: No diarrhea, no nausea, no vomiting, no abdominal pain. Normoactive bowel sounds. NEUROLOGICAL: No headaches, no weakness, no numbness. Active Medications Generic Name Dose Route Start Last Admin Trade Name Freq PRN Reason Stop Dose Admin Hydrocodone Bitart/Acetaminophen 1 each 08/03/20 09:31 08/03/20 22:06 Hydrocodone/Apap 5-325mg 1 Each Tab PO 1 each Q8H PRN Administration Pain Amiodarone HCl 200 mg 08/03/20 21:00 08/04/20 08:32 Amiodarone 200 Mg Tab PO 200 mg BID ABRAHAN Administration Furosemide 40 mg 08/03/20 09:00 08/04/20 08:32 Furosemide 10 Mg/Ml 4 Ml Vial IV 40 mg Q12HR ABRAHAN Administration Diltiazem HCl 125 mg/ Sodium 125 mls @ 0 mls/hr 08/03/20 05:30 08/03/20 23:00 Chloride IV 5 mg/hr .Q0M ABRAHAN 5 mls/hr Administration Protocol Per Protocol Doxycycline Hyclate 100 mg/ 100 mls @ 100 mls/hr 08/03/20 10:45 08/04/20 08:31 Sodium Chloride IVPB 100 mls/hr Q12HR ABRAHAN Administration Insulin Aspart 0 unit 08/03/20 21:00 08/04/20 06:44 Insulin Aspart (Novolog) 100 Unit/Ml Vial SQ 3 unit ACHS ABRAHAN Administration Protocol Levothyroxine Sodium 50 mcg 08/05/20 07:30 Levothyroxine 50 Mcg Tab PO AC-BRKFST ABRAHAN Lorazepam 1 mg 08/03/20 05:28 08/04/20 08:31 Lorazepam 2 Mg/Ml Inj IV 1 mg Q2HR PRN Administration CIWA 8 or 9 Lorazepam 1 mg 08/03/20 05:28 Lorazepam 2 Mg/Ml Inj IV Q1HR PRN CIWA 10 to 15 Lorazepam 2 mg 08/03/20 05:28 Lorazepam 2 Mg/Ml Inj IV 08/05/20 05:28 Q10M PRN CIWA 16 or higher Methylprednisolone Sodium Succinate 40 mg 08/03/20 12:00 08/04/20 04:30 Methylprednisolone Sod Succi 40 Mg/Ml 1 Ml Vial IV 40 mg Q8H ABRAHAN Administration Metoprolol Succinate 50 mg 08/04/20 09:00 08/04/20 08:32 Metoprolol Succinate (Er) 50 Mg Tab.Er.24h PO 50 mg DAILY ABRAHAN Administration Miscellaneous Information 1 each 08/03/20 08:03 Magnesium Replacement Protocol 1 Each Misc MISCELLANE DAILY PRN Per Protocol Protocol Naloxone HCl 0.2 mg 08/03/20 05:25 Naloxone 0.4 Mg/Ml 1 Ml Vial IV Q2M PRN Opioid Reversal Pantoprazole Sodium 40 mg 08/03/20 09:45 08/04/20 06:44 Pantoprazole 40 Mg Tablet PO 40 mg AC-BRKFST ABRAHAN Administration Potassium Chloride 10 meq 08/04/20 09:00 08/04/20 08:32 Potassium Chloride Er 10 Meq Tab.Er.Prt PO 10 meq DAILY ABRAHAN Administration Rivaroxaban 20 mg 08/03/20 17:30 08/03/20 18:17 Rivaroxaban 20 Mg Tab PO 20 mg AC-SUPPER ABRAHAN Administration Thiamine HCl 100 mg 08/03/20 17:30 08/04/20 06:44 Thiamine 100 Mg Tab PO 100 mg BID-W/MEALS ABRAHAN Administration Objective - Vital Signs Vital signs: Vital Signs Temp 97.9 F 08/04/20 08:00 Pulse 69 08/04/20 08:00 Resp 18 08/04/20 08:00 BP 84/47 08/04/20 08:00 Pulse Ox 93 L 08/04/20 08:00 Intake & Output 08/03/20 08/04/20 08/04/20 18:59 06:59 18:59 Intake Total 361 326.5 180 Output Total 950 2375 80 Balance -589 -2048.5 100 Weight 142.882 kg 132 kg Intake: Intake, IV Titration 86.5 Amount Diltiazem 125 mg In 86.5 Sodium Chloride 0.9% 100 ml @ Per Protocol IV .Q0M [facility] Rx#:[id number] Oral 361 240 180 Output: Urine 950 2375 80 Other: Voiding Method Urinal Indwelling Catheter Indwelling Catheter # Bowel Movements 5 - Exam -GENERAL: The patient is alert and oriented x3, not in any acute distress. Obese HEENT: Pupils are round and equally reacting to light. EOMI. No scleral icterus. No conjunctival pallor. Normocephalic, atraumatic. No pharyngeal erythema. No thyromegaly. CARDIOVASCULAR: S1 and S2 present. No murmurs, rubs, or gallops. -PULMONARY: Chest is clear to auscultation, bilateral scattered wheezing or crackles. -ABDOMEN: Soft, epigastric tenderness with no rebound tenderness, nondistended, normoactive bowel sounds. No palpable organomegaly. MUSCULOSKELETAL: No joint swelling or deformity. EXTREMITIES: No cyanosis, clubbing, or pedal edema. NEUROLOGICAL: Gross neurological examination did not reveal any focal deficits. SKIN: No rashes. No petechiae - Labs CBC & Chem 7: 08/03/20 05:23 08/04/20 08:17 Labs: Abnormal Lab Results - Last 24 Hours (Table) 08/03/20 08/03/20 08/04/20 Range/Units 12:00 20:18 06:10 Sodium (137-145) mmol/L Carbon Dioxide (22-30) mmol/L Glucose (74-99) mg/dL POC Glucose (mg/dL) 159 H 165 H (75-99) mg/dL Troponin I 0.036 H* (0.000-0.034) ng/mL 08/04/20 Range/Units 08:17 Sodium 134 L (137-145) mmol/L Carbon Dioxide 33 H (22-30) mmol/L Glucose 186 H (74-99) mg/dL POC Glucose (mg/dL) (75-99) mg/dL Troponin I (0.000-0.034) ng/mL Assessment and Plan Assessment: -Acute COPD exacerbation -Acute on chronic pancreatitis, already treated and feels better but still have this chronic abdominal pain -Elevated troponin, in view of elevated heart rate from A. fib and RVR -Hypothyroidism with constipation and tiredness, with high TSH more than 14., increase his levothyroxine from 25 up to 50 g daily -Alcohol intoxication on the presentation with alcohol withdrawal - multiple pancreatic cyst, last time GI recommended outpatient MRI or endoscopic ultrasound -Stage 1-2 buttock ulcer, secondary to pressure ulcer, continue with local treatment, improved -History of leg cellulitis, and pneumonia -prolonged QTC 589 -Generalized weakness and falls. Referred for ECF for subacute rehab last time -history of alcohol abuse was recently treated for alcohol withdrawals. -atrial fibrillation, rate uncontrolled , on xarelto -chronic lymphopenia -History of chronic hep C -Hypertension -Chronic Abdominal pain with tenderness and nausea. CT of the abdomen with IV showed multiple pancreatic cyst, GI recommended outpatient MRI or endoscopic ultrasound Plan: This is a pleasant 70 years old male who presents with A. fiband alcohol intoxication and withdrawal. Continue with CIWA protocol and thiamine Continue with amiodarone and metoprolol,Resume Xarelto . Continue with steroids and breathing treatment and oxygen as needed. And antibiotic. Consult with GI and cardiology team We will check TSH and lipase consult cardiology and GI team Labs and medication were reviewed.. Continue same treatment. Continue with symptomatic treatment. Resume home medication. Monitor lytes and vitals. DVT and GI prophylaxis. Further recommendationsas per clinical course of the patient DVT prophylaxis: Xarelto GI Prophylaxis: Pepcid PT/OT: Pending Prognosis is guarded
--- NOTE | 2020-08-04 12:53 | P.PN ---
Subjective Progress Note Date: 08/04/20 Principal diagnosis: Chronic pancreatitis, acute alcohol intoxication This is a 70-year-old white male with a history of heavy alcohol abuse who was readmitted with alcohol intoxication and inability to care for himself. Apparently the patient was notedat his home to be covered in feces and intoxicated. He was brought to the emergency department. He has had prior CT of the abdomen Stone at [facility] showing chronic pancreatitis with pseudocyst. He has had no outpatient follow-up with the GI services. He has was seen and evaluated at the bedside. He states he is feeling better today. He still has some mild left upper quadrant tenderness. He has a known history of chronic alcohol pancreatitis. He denies any loose bowel movements through the night or this morning. Denies any melena or rectal bleeding. He is tolerating a regular diet. Objective - Vital Signs Vital signs: Vital Signs Temp 97.9 F 08/04/20 08:00 Pulse 69 08/04/20 08:00 Resp 18 08/04/20 08:00 BP 84/47 08/04/20 08:00 Pulse Ox 93 L 08/04/20 08:00 Intake & Output 08/03/20 08/04/20 08/04/20 18:59 06:59 18:59 Intake Total 361 326.5 180 Output Total 950 2375 80 Balance -589 -2048.5 100 Weight 142.882 kg 132 kg Intake: Intake, IV Titration 86.5 Amount Diltiazem 125 mg In 86.5 Sodium Chloride 0.9% 100 ml @ Per Protocol IV .Q0M [facility] Rx#:[id number] Oral 361 240 180 Output: Urine 950 2375 80 Other: Voiding Method Urinal Indwelling Catheter Indwelling Catheter # Bowel Movements 5 - Exam General appearance: The patient is alert, oriented, in no acute distress. Morbidly obese. HET: Head is normocephalic and atraumatic. Conjunctiva pink. Sclera anicteric. Neck: Supple without lymphadenopathy. Abdomen: Soft, epigastric and LUQ tenderness , nondistended with bowel sounds. No guarding or rigidity. Extremities: Normal skin color and turgor. No pedal edema Neurological: No focal deficits. Alert and oriented 3. - Labs CBC & Chem 7: 08/03/20 05:23 08/04/20 08:17 Labs: Abnormal Lab Results - Last 24 Hours (Table) 08/03/20 08/03/20 08/03/20 Range/Units 05:23 12:00 20:18 Sodium (137-145) mmol/L Carbon Dioxide (22-30) mmol/L Glucose (74-99) mg/dL POC Glucose (mg/dL) 159 H (75-99) mg/dL Troponin I 0.036 H* (0.000-0.034) ng/mL Lipase 334 H (23-300) U/L TSH 14.100 H (0.465-4.680) mIU/L 08/04/20 08/04/20 Range/Units 06:10 08:17 Sodium 134 L (137-145) mmol/L Carbon Dioxide 33 H (22-30) mmol/L Glucose 186 H (74-99) mg/dL POC Glucose (mg/dL) 165 H (75-99) mg/dL Troponin I (0.000-0.034) ng/mL Lipase (23-300) U/L TSH (0.465-4.680) mIU/L Assessment and Plan (1) Acute on chronic pancreatitis Narrative/Plan: Left upper quadrant abdominal pain, probably related to mild exacerbation of chronic pancreatitis. He pays initially was minimally elevated, now within normal range 104. The patient with a history of heavy alcohol abuse. He had a recent hospitalization about 3 weeks ago for flareup of pancreatitis Current Visit: Yes Status: Acute Code(s): K85.90 - ACUTE PANCREATITIS WITHOUT NECROSIS OR INFECTION, UNSP; K86.1 - OTHER CHRONIC PANCREATITIS SNOMED Code(s): 474490907 (2) Alcohol intoxication Narrative/Plan: resolved Current Visit: Yes Status: Acute Code(s): F10.929 - ALCOHOL USE, UNSPECIFIED WITH INTOXICATION, UNSPECIFIED SNOMED Code(s): 65539784 (3) Elevated transaminase level Narrative/Plan: Mild elevation of serum transaminases secondary to chronic liver disease Current Visit: Yes Status: Acute Code(s): R74.01 - SNOMED Code(s): 184479840 (4) Atrial fibrillation Narrative/Plan: on Xarelto Current Visit: No Status: Acute Code(s): I48.91 - UNSPECIFIED ATRIAL FIBRILLATION SNOMED Code(s): 38543287 (5) Pancreatic pseudocyst/cyst Narrative/Plan: Patient has a history of pancreatic pseudocyst seen on imaging from [facility]. Requesting most recent CT/MRI results to be faxed over. Current Visit: Yes Status: Acute Code(s): K86.2 - CYST OF PANCREAS; K86.3 - PSEUDOCYST OF PANCREAS SNOMED Code(s): 485482564 Plan: 1. Supportive care 2. Stool studies for C. diff toxin evaluate for diarrhea 3. Advance diet as tolerated 4. Will add pancreatic enzyme replacement 4 tabs TID with meals 5. Abstinence from alcohol 6. Watch for alcohol withdrawal and DTs 7. Social work consult for possible admission for inpatient rehab for alcoholis m 8. Requesting CT/MRI reports from [facility], will consider possible MRI of the pancreas. Patient will need a follow-up outpatient EUS. The impression and plan of care has been dictated as directed. I performed a history and examination of this patient, discussed the same with the dictator. I agree with the dictator's note ,documented as a scribe. Any additional findings or plans will be noted.
--- NOTE | 2020-08-04 13:42 | ECHOF ---
Referral Reason:sob MEASUREMENTS -------- HEIGHT: 190.5 cm WEIGHT: 132.0 kg BP: 115/72 RVIDd: 3.1 cm (< 3.3) IVSd: 1.4 cm (0.6 - 1.1) LVIDd: 4.2 cm (3.9 - 5.3) LVPWd: 1.3 cm (0.6 - 1.1) IVSs: 1.8 cm LVIDs: 3.4 cm LVPWs: 1.5 cm LA Diam: 3.6 cm (2.7 - 3.8) Ao Diam: 3.5 cm (2.0 - 3.7) AV Cusp: 2.1 cm (1.5 - 2.6) MV EXCURSION: 19.913 mm (> 18.000) MV EF SLOPE: 65 mm/s (70 - 150) EPSS: 0.9 cm RAP: 5.00 mmHg RVSP: 24.48 mmHg FINDINGS -------- The rhythm appears to be atrial flutter. This was a technically difficult study with suboptimal views. The left ventricular size is normal. There is moderate concentric left ventricular hypertrophy. O verall left ventricular systolic function is low-normal with, an EF between 50 - 55 %. The right ventricle is mildly enlarged. The left atrial size is normal. The right atrium is normal in size. xx ml of Lumason was utilized for enhancement of images. The aortic valve is trileaflet and appears structurally normal. There is trace to mild mitral regurgitation. Mild tricuspid regurgitation present. Right ventricular systolic pressure is normal at < 35 mmHg. The pulmonic valve was not well visualized. The aortic root size is normal. IVC Not well visulized. There is a small, generalized pericardial effusion present. There is no evidence of cardiac tampona de. CONCLUSIONS -------- 1. The left ventricular size is normal. 2. There is moderate concentric left ventricular hypertrophy. 3. Overall left ventricular systolic function is low-normal with, an EF between 50 - 55 %. 4. The right ventricle is mildly enlarged. 5. xx ml of Lumason was utilized for enhancement of images. 6. There is trace to mild mitral regurgitation. 7. Mild tricuspid regurgitation present. 8. There is a small, generalized pericardial effusion present. 9. There is no evidence of cardiac tamponade. SOLICITOR PATENT: Judy Ross RDCS
--- NOTE | 2020-08-04 15:12 | P.PN ---
Subjective Progress Note Date: 08/04/20 This is a pleasant 70-year-old occasions male past medical history significant for paroxysmal atrial fibrillation on long-term anticoagulation, hypertension and daily alcohol abuse. He used to follow in the office with Dr. Barakat but has not been back since 2017. We have been asked to see in consultation for atrial fibrillation with rapid ventricular rate. He states for the previous one to 2 weeks he's been feeling increasingly weak with intermittent episodes of shortness of breath and epigastric/abdominal pain. He doesn't recall the exact events of what happened at home he just remembers he was on the floor and could not get up. He was found on the floor covered in feces and brought to the hospital for further evaluation. Patient continues to be on IV Lasix, he was seen and examined this morning, no further episodes of loose stools, continues to have shortness of breath. Continues at this time to be in atrial flutter. Echo remains pending. We will continue with the IV Lasix for 24 hours, add Aldactone to the medication regime. His blood pressure today 108/70 with a heart rate in the 80s, 94% on 3 L of oxygen. Sodium 134, potassium 3.9, BUN 12, creatinine 0.7. Objective - Vital Signs Vital signs: Vital Signs Temp 98.1 F 08/04/20 12:00 Pulse 86 08/04/20 12:00 Resp 16 08/04/20 12:00 BP 108/74 08/04/20 12:00 Pulse Ox 94 L 08/04/20 12:00 Intake & Output 08/03/20 08/04/20 08/04/20 18:59 06:59 18:59 Intake Total 361 326.5 420 Output Total 950 2375 1305 [facility] [place] -589 -2048.5 -885 Weight 142.882 kg 132 kg Intake: Intake, IV Titration 86.5 Amount Diltiazem 125 mg In 86.5 Sodium Chloride 0.9% 100 ml @ Per Protocol IV .Q0M [facility] Rx#:[id number] Oral 361 240 420 Output: Urine 950 2375 1305 Other: Voiding Method Urinal Indwelling Catheter Indwelling Catheter # Bowel Movements 5 1 - Exam PHYSICAL EXAMINATION CONSTITUTIONAL: No apparent distress. HEENT: Head is normocephalic. Pupils are equal, round. Sclerae anicteric. Mucous membranes of the mouth are moist. No JVD. No carotid bruit. CHEST EXAMINATION: Lungs are clear to auscultation. No chest wall tenderness is noted on palpation or with deep breathing. HEART EXAMINATION: Irregular rate and rhythm. S1, S2 heard. No murmurs, gallops or rub. ABDOMEN: Soft, nontender. Positive bowel sounds. EXTREMITIES: 2+ peripheral pulses, 2+ bilateral lower extremity pitting edema and no calf tenderness. NEUROLOGIC EXAMINATION: Patient is awake, alert and oriented x3. - Labs CBC & Chem 7: 08/03/20 05:23 08/04/20 08:17 Labs: Abnormal Lab Results - Last 24 Hours (Table) 08/03/20 08/04/20 08/04/20 Range/Units 20:18 06:10 08:17 Sodium 134 L (137-145) mmol/L Carbon Dioxide 33 H (22-30) mmol/L Glucose 186 H (74-99) mg/dL POC Glucose (mg/dL) 159 H 165 H (75-99) mg/dL 08/04/20 Range/Units 11:38 Sodium (137-145) mmol/L Carbon Dioxide (22-30) mmol/L Glucose (74-99) mg/dL POC Glucose (mg/dL) 168 H (75-99) mg/dL Assessment and Plan Plan: ASSESSMENT and plan #1 Paroxysmal atrial fibrillation with rapid ventricular rate #2 Acute on chronic diastolic heart failure #3 Hypomagnesemia likely secondary to EtOH #4 Persistent diarrhea #5 Hypertension #6 Daily alcohol intake #7 typical atrial flutter Plan We will continue current dose of IV Lasix, for 24 hours, add Aldactone 25 mg daily to the patient's medication regime. Review the patient's echocardiogram with Doppler study check lytes BUN creatinine and CBC in the morning. DNP note has been reviewed, I agree with a documented findings and plan of care. Patient was seen and examined.
[2020-08-04] MEDS: RIVAROXABAN 20 MG TAB PO SCH (15:19)
[2020-08-04 16:37] LABS: Glucose,Whole Blood 198 mg/dL (75-99)
[2020-08-04 16:45] LABS: Hemoglobin A1C 5.8 % (4.0-6.0)
[2020-08-04] MEDS: LIPASE 5,000/PROTEASE 17,000/AMYLASE 24,000 PO SCH (17:46)
[2020-08-04 20:01] LABS: Glucose,Whole Blood 194 mg/dL (75-99)
[2020-08-05] MEDS: methylPREDNISolone SOD SUCCI 40 MG/ML 1 ML VIAL IV SCH ×3 (03:14→20:15)
[2020-08-05] MEDS: DILTIAZEM 125 MG in SODIUM CHLORIDE 0.9% 100 ML IV SCH (03:14)
[2020-08-05] MEDS: LORazepam 2 MG/ML INJ IV PRN ×4 (03:15→23:15)
[2020-08-05] MEDS: HYDROcodone/APAP 5-325MG 1 EACH TAB PO PRN ×3 (05:02→20:15)
[2020-08-05 06:08] LABS: Glucose,Whole Blood 176 mg/dL (75-99)
[2020-08-05] MEDS: INSULIN ASPART (NovoLOG) 100 UNIT/ML VIAL SQ SCH ×4 (06:36→20:34)
[2020-08-05] MEDS: THIAMINE 100 MG TAB PO SCH ×2 (06:36→17:33)
[2020-08-05] MEDS: LEVOTHYROXINE 50 MCG TAB PO SCH (06:36)
[2020-08-05] MEDS: PANTOPRAZOLE 40 MG TABLET PO SCH (06:36)
[2020-08-05] MEDS: LIPASE 5,000/PROTEASE 17,000/AMYLASE 24,000 PO SCH ×3 (06:37→17:33)
[2020-08-05 08:51] LABS: African American GFR (CKD) >90 (>60 ml/min/1.73 sqM); Anion Gap 4 mmol/L; Blood Urea Nitrogen 17 mg/dL (9-20); Calcium 8.4 mg/dL (8.4-10.2); Carbon Dioxide 33 mmol/L (22-30); Chloride 95 mmol/L (98-107); Glucose 160 mg/dL (74-99); Non-African American GFR(CKD) 86 (>60 ml/min/1.73 sqM); Potassium 3.6 mmol/L (3.5-5.1); Sodium 132 mmol/L (137-145)
[2020-08-05] MEDS: SPIRONOLACTONE 25 MG TAB PO SCH (10:05)
[2020-08-05] MEDS: FUROSEMIDE 40 MG TAB PO SCH (10:05)
[2020-08-05] MEDS: AMIODARONE 200 MG TAB PO SCH ×2 (10:05→20:15)
[2020-08-05] MEDS: METOPROLOL SUCCINATE (ER) 50 MG TAB.ER.24H PO SCH (10:05)
[2020-08-05] MEDS: POTASSIUM CHLORIDE ER 10 MEQ TAB.ER.PRT PO SCH (10:06)
[2020-08-05] MEDS: DOXYCYCLINE 100 MG in SODIUM CHLORIDE 0.9% 100 ML IVPB SCH ×2 (10:23→20:16)
--- NOTE | 2020-08-05 10:44 | P.PN ---
Subjective Progress Note Date: 08/05/20 This is a pleasant 70-year-old occasions male past medical history significant for paroxysmal atrial fibrillation on long-term anticoagulation, hypertension and daily alcohol abuse. He used to follow in the office with Dr. Barakat but has not been back since 2017. We have been asked to see in consultation for atrial fibrillation with rapid ventricular rate. He states for the previous one to 2 weeks he's been feeling increasingly weak with intermittent episodes of shortness of breath and epigastric/abdominal pain. He doesn't recall the exact events of what happened at home he just remembers he was on the floor and could not get up. He was found on the floor covered in feces and brought to the hospital for further evaluation. Patient continues to be on IV Lasix, he was seen and examined this morning, no further episodes of loose stools, continues to have shortness of breath. Continues at this time to be in atrial flutter. Echo remains pending. We will continue with the IV Lasix for 24 hours, add Aldactone to the medication regime. His blood pressure today 108/70 with a heart rate in the 80s, 94% on 3 L of oxygen. Sodium 134, potassium 3.9, BUN 12, creatinine 0.7. 08/05/2020 Patient was seen and examined this morning, overall doing better. Rate control much improved. We will adjust his metoprolol dose to 50 in the morning and 20 5 in the evening.blood pressure 117/70 with a heart rate in the 80s, 96% on 3 L of oxygen.sodium 132, potassium 3.6, BUN 17, creatinine 0.8. Objective - Vital Signs Vital signs: Vital Signs Temp 98.1 F 08/04/20 20:00 Pulse 88 08/05/20 04:00 Resp 18 08/05/20 04:00 BP 117/72 08/05/20 04:00 Pulse Ox 96 08/05/20 04:00 Intake & Output 08/04/20 08/05/20 08/05/20 18:59 06:59 18:59 Intake Total 420 725 0 Output Total 1455 1000 Balance -1035 -275 0 Weight 134.2 kg Intake: Intake, IV Titration 225 Amount Diltiazem 125 mg In 125 Sodium Chloride 0.9% 100 ml @ Per Protocol IV .Q0M [facility] Rx#:[id number] Doxycycline 100 mg In 100 Sodium Chloride 0.9% 100 ml @ 100 mls/hr IVPB Q12HR [facility] Rx#:[id number] Oral 420 500 0 Output: Urine 1455 1000 Other: Voiding Method Indwelling Catheter Indwelling Catheter # Bowel Movements 1 - Exam PHYSICAL EXAMINATION CONSTITUTIONAL: No apparent distress. HEENT: Head is normocephalic. Pupils are equal, round. Sclerae anicteric. Mucous membranes of the mouth are moist. No JVD. No carotid bruit. CHEST EXAMINATION: Lungs are clear to auscultation. No chest wall tenderness is noted on palpation or with deep breathing. HEART EXAMINATION: Irregular rate and rhythm. S1, S2 heard. No murmurs, gallops or rub. ABDOMEN: Soft, nontender. Positive bowel sounds. EXTREMITIES: 2+ peripheral pulses, 2+ bilateral lower extremity pitting edema and no calf tenderness. NEUROLOGIC EXAMINATION: Patient is awake, alert and oriented x3. - Labs CBC & Chem 7: 08/03/20 05:23 08/05/20 08:06 Labs: Abnormal Lab Results - Last 24 Hours (Table) 08/04/20 08/04/20 08/04/20 Range/Units 11:38 16:35 20:00 Sodium (137-145) mmol/L Chloride (98-107) mmol/L Carbon Dioxide (22-30) mmol/L Glucose (74-99) mg/dL POC Glucose (mg/dL) 168 H 198 H 194 H (75-99) mg/dL 08/05/20 08/05/20 Range/Units 06:07 08:06 Sodium 132 L (137-145) mmol/L Chloride 95 L (98-107) mmol/L Carbon Dioxide 33 H (22-30) mmol/L Glucose 160 H (74-99) mg/dL POC Glucose (mg/dL) 176 H (75-99) mg/dL Assessment and Plan Plan: ASSESSMENT and plan #1 Paroxysmal atrial fibrillation with rapid ventricular rate #2 Acute on chronic diastolic heart failure #3 Hypomagnesemia likely secondary to EtOH #4 Persistent diarrhea #5 Hypertension #6 Daily alcohol intake #7 typical atrial flutter Plan We will discontinue the IV Lasix today and change the patient over to oral diuretics. Adjust the beta darwin dose to 50 mg in the morning and 20 5 in the evening, rate control has been achieved. Plan for discharge in 24 hours if stable. Follow-up with Dr. Mcdonough in the office post discharge. DNP note has been reviewed, I agree with a documented findings and plan of care. Patient was seen and examined.
[2020-08-05 11:43] LABS: Glucose,Whole Blood 172 mg/dL (75-99)
--- NOTE | 2020-08-05 12:08 | P.PN ---
Subjective This is a pleasant 70 years old male with multiple medical problems including multiple pancreatic cysts, stage II buttock ulcer and pressure ulcer, bilateral leg swelling, hypothyroidism with constipation, recent pneumonia, recent Cellulitis, generalized weakness and falls, alcohol abuse and alcohol withdrawal, COPD, atrial fibrillation on Xarelto, chronic hepatitis C and hypertension As per documentation He was transferred from [facility] for alcohol intoxication and inability to care for him where he was found home covered with his own feces and intoxicated, in the hospital he developed A. fib and RVR. On the presentation patient had abdominal pain and diarrhea and he attributed it to not getting [place] as he ran out of it for 2 days prior to hospitalization, his chronic abdominal pain become more severe. Also he started drinking alcohol because of family member . He was transferred to our hospital for tachycardia and tremors as per documentation Patient is telling me that last time we send him to rehab they can come out and he does not know why as he claims. At home he was drinking alcohol about half a gallon of recurrent or less and smokes about 1 pack per day, patient is counseled to quit and he agrees but he declines nicotine patch. He denies illicit drugs. He states he he called the ambulance by himself because he was having same pancreatic pain but more severe and his been short of breath with coughing and some white to yellow phlegm. No chest pain Currently patient still on Cardizem drip [facility] looks stable, his tachycardic with heart rate 118-122. He saturating 96% on 3 L oxygen via nasal cannula. CBC is unremarkable except for mild anemia with hemoglobin 12.3. Lymphocytes his low 0.8, INR is normal 1.1, electrolytes and creatinine are unremarkable. Magnesium is low at 1.5, troponin is elevated at 0.038. ALT is normal but AST slightly up at 64, total bilirubin is normal at 0.9. Chest x-ray: No acute cardiopulmonary process. Patient magnesium is been replaced and placed for cartilage team on Lasix 40 mg twice daily. MAPS was checked on 08/03 and patient is on [place] 5-325 pills for 30 days 08/04/2020 Patient today's awake but he failed generally weak and tired. His breathing is better than yesterday, no significant coughing. No chest pain. He still has s ome epigastric abdominal pain at 810 but that does not look bothering him a lot. i reviewed, his blood pressure is 84/47, however patient is asymptomatic. We will keep monitoring his blood pressure. He saturating 93% on 3 L oxygen via nasal cannula. BMP and magnesium are unremarkable and sugar is controlled. Levothyroxine was increased today by cardiology team from 25 up to 50 g and agree with that. And GI team are following the patient closely. Remains on Xarelto and Cardizem. He's also on Solu-Medrol and doxycycline and Lasix IV 40 mg twice daily for his COPD and A. fib with RVR And the fluid overload i discussed the case with physical therapy team, possibly patient will need ECF for rehab 08/05/2020 Patient still feels generally tired and fatigued, mostly due to medical condit ions including hypothyroidism. Levothyroxine was increased yesterday to 50 g. Patient informed and he agrees. He still have some abdominal pain, pancreatic enzymes were added for him and as well as spironolactone. I discussed the case with GI team and they recommended EUS which can be done as an outpatient. Patient [facility] [place] [facility] the [facility] system. Also he wants to switch his [facility] doctor Ruthie because he always have difficulty seen him or have an appointment with him which happen even last admission when I tried to call him and make appointment and didn't happen. He preferred to go to surgery now clinic or to the and upper clinic, discussed the case with keycase assembler and there were trying to help us. Vitals stable. BMP and sugar are stable. Metoprolol dose was increased today to 37.5 mg daily. He remains on Xarelto, doxycycline and Solu-Medrol 40 mg and Lasix 40 mg IV is a switch to by mouth daily Objective - Vital Signs Vital signs: Vital Signs Temp 98 F 08/05/20 08:30 Pulse 113 H 08/05/20 08:30 Resp 19 08/05/20 08:30 BP 116/71 08/05/20 08:30 Pulse Ox 96 08/05/20 04:00 Intake & Output 08/04/20 08/05/20 08/05/20 18:59 06:59 18:59 Intake Total 420 725 0 Output Total 1455 1000 Balance -1035 -275 0 Weight 134.2 kg Intake: Intake, IV Titration 225 Amount Diltiazem 125 mg In 125 Sodium Chloride 0.9% 100 ml @ Per Protocol IV .Q0M [facility] Rx#:[id number] Doxycycline 100 mg In 100 Sodium Chloride 0.9% 100 ml @ 100 mls/hr IVPB Q12HR [facility] Rx#:[id number] Oral 420 500 0 Output: Urine 1455 1000 Other: Voiding Method Indwelling Catheter Indwelling Catheter Indwelling Catheter # Bowel Movements 1 - Exam -GENERAL: The patient is alert and oriented x3, not in any acute distress. Obese HEENT: Pupils are round and equally reacting to light. EOMI. No scleral icterus. No conjunctival pallor. Normocephalic, atraumatic. No pharyngeal erythema. No thyromegaly. CARDIOVASCULAR: S1 and S2 present. No murmurs, rubs, or gallops. -PULMONARY: Chest is clear to auscultation, bilateral scattered wheezing or crackles. -ABDOMEN: Soft, epigastric tenderness with no rebound tenderness, nondistended, normoactive bowel sounds. No palpable organomegaly. MUSCULOSKELETAL: No joint swelling or deformity. EXTREMITIES: No cyanosis, clubbing, or pedal edema. NEUROLOGICAL: Gross neurological examination did not reveal any focal deficits. SKIN: No rashes. No petechiae - Labs CBC & Chem 7: 08/03/20 05:23 08/05/20 08:06 Labs: Abnormal Lab Results - Last 24 Hours (Table) 08/04/20 08/04/20 08/05/20 Range/Units 16:35 20:00 06:07 Sodium (137-145) mmol/L Chloride (98-107) mmol/L Carbon Dioxide (22-30) mmol/L Glucose (74-99) mg/dL POC Glucose (mg/dL) 198 H 194 H 176 H (75-99) mg/dL 08/05/20 08/05/20 Range/Units 08:06 11:42 Sodium 132 L (137-145) mmol/L Chloride 95 L (98-107) mmol/L Carbon Dioxide 33 H (22-30) mmol/L Glucose 160 H (74-99) mg/dL POC Glucose (mg/dL) 172 H (75-99) mg/dL Assessment and Plan Assessment: -Acute COPD exacerbation -Acute on chronic pancreatitis, already treated and feels better but still have this chronic abdominal pain -Elevated troponin, in view of elevated heart rate from A. fib and RVR -Hypothyroidism with constipation and tiredness, with high TSH more than 14., increase his levothyroxine from 25 up to 50 g daily -Alcohol intoxication on the presentation with alcohol withdrawal - multiple pancreatic cyst, last time GI recommended outpatient MRI or endoscopic ultrasound -Stage 1-2 buttock ulcer, secondary to pressure ulcer, continue with local treatment, improved -History of leg cellulitis, and pneumonia -prolonged QTC 589 -Generalized weakness and falls. Referred for ECF for subacute rehab last time -history of alcohol abuse was recently treated for alcohol withdrawals. -atrial fibrillation, rate uncontrolled , on xarelto -chronic lymphopenia -History of chronic hep C -Hypertension -Chronic Abdominal pain with tenderness and nausea. CT of the abdomen with IV showed multiple pancreatic cyst, GI recommended outpatient MRI or endoscopic ultrasound Plan: This is a pleasant 70 years old male who presents with A. fiband alcohol intoxication and withdrawal. Continue with CIWA protocol and thiamine Continue with amiodarone and metoprolol,Resume Xarelto . Continue with steroids and breathing treatment and oxygen as needed. And antibiotic. Consult with GI and cardiology team We will check TSH and lipase consult cardiology and GI team Labs and medication were reviewed.. Continue same treatment. Continue with symptomatic treatment. Resume home medication. Monitor lytes and vitals. DVT and GI prophylaxis. Further recommendationsas per clinical course of the patient DVT prophylaxis: Xarelto GI Prophylaxis: Pepcid PT/OT: Pending Prognosis is guarded
--- NOTE | 2020-08-05 12:52 | P.PN ---
Subjective Progress Note Date: 08/05/20 Principal diagnosis: Chronic pancreatitis, acute alcohol intoxication This is a 70-year-old white male with a history of heavy alcohol abuse who was readmitted with alcohol intoxication and inability to care for himself. Apparently the patient was notedat his home to be covered in feces and intoxicated. He was brought to the emergency department. He has had prior CT of the abdomen done at [facility] showing chronic pancreatitis with pseudocyst that was enlarging. He has had no outpatient follow-up with the GI services. He has was seen and evaluated at the bedside. He states he is feeling weak today. Does not have much of an appetite. He is denying any abdo leticia pain at this time. He has a known history of chronic alcohol pancreatitis. He denies any loose bowel movements through the night or this morning. Denies any melena or rectal bleeding. He is tolerating a regular diet, states he is not eating much as he is afraid of diarrhea returning. Objective - Vital Signs Vital signs: Vital Signs Temp 98 F 08/05/20 08:30 Pulse 113 H 08/05/20 08:30 Resp 19 08/05/20 08:30 BP 116/71 08/05/20 08:30 Pulse Ox 96 08/05/20 04:00 Intake & Output 08/04/20 08/05/20 08/05/20 18:59 06:59 18:59 Intake Total 420 725 0 Output Total 1455 1000 Balance -1035 -275 0 Weight 134.2 kg Intake: Intake, IV Titration 225 Amount Diltiazem 125 mg In 125 Sodium Chloride 0.9% 100 ml @ Per Protocol IV .Q0M [facility] Rx#:[id number] Doxycycline 100 mg In 100 Sodium Chloride 0.9% 100 ml @ 100 mls/hr IVPB Q12HR [facility] Rx#:[id number] Oral 420 500 0 Output: Urine 1455 1000 Other: Voiding Method Indwelling Catheter Indwelling Catheter Indwelling Catheter # Bowel Movements 1 - Exam General appearance: The patient is alert, oriented, in no acute distress. Morbidly obese. HET: Head is normocephalic and atraumatic. Conjunctiva pink. Sclera anicteric. Neck: Supple without lymphadenopathy. Abdomen: Soft, epigastric and LUQ tenderness , nondistended with bowel sounds. No guarding or rigidity. Extremities: Normal skin color and turgor. No pedal edema Neurological: No focal deficits. Alert and oriented 3. - Labs CBC & Chem 7: 08/03/20 05:23 08/05/20 08:06 Labs: Abnormal Lab Results - Last 24 Hours (Table) 08/04/20 08/04/20 08/05/20 Range/Units 16:35 20:00 06:07 Sodium (137-145) mmol/L Chloride (98-107) mmol/L Carbon Dioxide (22-30) mmol/L Glucose (74-99) mg/dL POC Glucose (mg/dL) 198 H 194 H 176 H (75-99) mg/dL 08/05/20 08/05/20 Range/Units 08:06 11:42 Sodium 132 L (137-145) mmol/L Chloride 95 L (98-107) mmol/L Carbon Dioxide 33 H (22-30) mmol/L Glucose 160 H (74-99) mg/dL POC Glucose (mg/dL) 172 H (75-99) mg/dL Assessment and Plan (1) Acute on chronic pancreatitis Narrative/Plan: Left upper quadrant abdominal pain, probably related to mild exacerbation of chronic pancreatitis. He pays initially was minimally elevated, now within normal range 104. The patient with a history of heavy alcohol abuse. He had a recent hospitalization about 3 weeks ago for flareup of pancreatitis Current Visit: Yes Status: Acute Code(s): K85.90 - ACUTE PANCREATITIS WITHOUT NECROSIS OR INFECTION, UNSP; K86.1 - OTHER CHRONIC PANCREATITIS SNOMED Code(s): 265994516 (2) Alcohol intoxication Narrative/Plan: resolved Current Visit: Yes Status: Acute Code(s): F10.929 - ALCOHOL USE, UNSPECIFIED WITH INTOXICATION, UNSPECIFIED SNOMED Code(s): 41358030 (3) Elevated transaminase level Narrative/Plan: Mild elevation of serum transaminases secondary to chronic liver disease Current Visit: Yes Status: Acute Code(s): R74.01 - SNOMED Code(s): 257397200 (4) Atrial fibrillation Narrative/Plan: on Xarelto Current Visit: No Status: Acute Code(s): I48.91 - UNSPECIFIED ATRIAL FIBRILLATION SNOMED Code(s): 40819972 (5) Pancreatic pseudocyst/cyst Narrative/Plan: Patient has a history of pancreatic pseudocyst seen on imaging from [facility]. Requesting most recent CT/MRI results to be faxed over. Does with patient the importance of follow-up with gastroenterology to schedule outpatient EUS. Discussed that this could be done likely through the [place] and [facility]. Patient verbalized understanding. Current Visit: Yes Status: Acute Code(s): K86.2 - CYST OF PANCREAS; K86.3 - PSEUDOCYST OF PANCREAS SNOMED Code(s): 166195459 Plan: 1. Supportive care 2. Stool studies for C. diff toxin negative 3. Advance diet as tolerated 4. Will add pancreatic enzyme replacement 4 tabs TID with meals 5. Abstinence from alcohol 6. Watch for alcohol withdrawal and DTs 7. Social work consult for possible admission for inpatient rehab for alcoholism 8. Requesting CT/MRI reports from [facility]. CT reviewed. MRI unlikely to be beneficial or change the plan of care. Patient will need an outpatient EUS, this will be scheduled through the gastroenterology office. The impression and plan of care has been dictated as directed. I performed a history and examination of this patient, discussed the same with the dictator. I agree with the dictator's note ,documented as a scribe. Any additional findings or plans will be noted.
[2020-08-05 16:42] LABS: Glucose,Whole Blood 184 mg/dL (75-99)
[2020-08-05] MEDS: RIVAROXABAN 20 MG TAB PO SCH (17:33)
[2020-08-05 20:32] LABS: Glucose,Whole Blood 155 mg/dL (75-99)
[2020-08-06] MEDS: methylPREDNISolone SOD SUCCI 40 MG/ML 1 ML VIAL IV SCH (03:19)
[2020-08-06] MEDS: HYDROcodone/APAP 5-325MG 1 EACH TAB PO PRN ×2 (03:19→20:13)
[2020-08-06] MEDS: LORazepam 2 MG/ML INJ IV PRN ×4 (03:20→20:14)
[2020-08-06 06:12] LABS: Glucose,Whole Blood 172 mg/dL (75-99)
[2020-08-06] MEDS: INSULIN ASPART (NovoLOG) 100 UNIT/ML VIAL SQ SCH ×4 (06:33→21:24)
[2020-08-06] MEDS: THIAMINE 100 MG TAB PO SCH ×2 (06:34→14:10)
[2020-08-06] MEDS: LIPASE 5,000/PROTEASE 17,000/AMYLASE 24,000 PO SCH ×3 (06:34→14:10)
[2020-08-06] MEDS: PANTOPRAZOLE 40 MG TABLET PO SCH (06:34)
[2020-08-06] MEDS: LEVOTHYROXINE 50 MCG TAB PO SCH (06:34)
[2020-08-06] MEDS: METOPROLOL TARTRATE 25 MG TAB PO SCH (08:33)
[2020-08-06] MEDS: DOXYCYCLINE 100 MG in SODIUM CHLORIDE 0.9% 100 ML IVPB SCH ×2 (08:33→20:13)
[2020-08-06] MEDS: AMIODARONE 200 MG TAB PO SCH ×2 (08:34→20:14)
[2020-08-06] MEDS: POTASSIUM CHLORIDE ER 10 MEQ TAB.ER.PRT PO SCH (08:34)
[2020-08-06] MEDS: FUROSEMIDE 40 MG TAB PO SCH (08:34)
[2020-08-06] MEDS: SPIRONOLACTONE 25 MG TAB PO SCH (08:34)
[2020-08-06] MEDS ORDERED: ONDANSETRON 4 MG/2 ML VIAL IVP PRN (08:42)
[2020-08-06] MEDS ORDERED: diazePAM 5 MG TAB PO STA (08:55)
[2020-08-06] MEDS ORDERED: predniSONE 10 MG TAB PO STA (09:42)
--- NOTE | 2020-08-06 09:56 | P.PN ---
Subjective Progress Note Date: 08/06/20 This is a pleasant 70-year-old occasions male past medical history significant for paroxysmal atrial fibrillation on long-term anticoagulation, hypertension and daily alcohol abuse. He used to follow in the office with Dr. Barakat but has not been back since 2017. We have been asked to see in consultation for atrial fibrillation with rapid ventricular rate. He states for the previous one to 2 weeks he's been feeling increasingly weak with intermittent episodes of shortness of breath and epigastric/abdominal pain. He doesn't recall the exact events of what happened at home he just remembers he was on the floor and could not get up. He was found on the floor covered in feces and brought to the hospital for further evaluation. Patient continues to be on IV Lasix, he was seen and examined this morning, no further episodes of loose stools, continues to have shortness of breath. Continues at this time to be in atrial flutter. Echo remains pending. We will continue with the IV Lasix for 24 hours, add Aldactone to the medication regime. His blood pressure today 108/70 with a heart rate in the 80s, 94% on 3 L of oxygen. Sodium 134, potassium 3.9, BUN 12, creatinine 0.7. 08/05/2020 Patient was seen and examined this morning, overall doing better. Rate control much improved. We will adjust his metoprolol dose to 50 in the morning and 20 5 in the evening.blood pressure 117/70 with a heart rate in the 80s, 96% on 3 L of oxygen.sodium 132, potassium 3.6, BUN 17, creatinine 0.8. 08/06/2020 Patient was seen and examined this morning, overall doing much better. Social work is currently working on possible inpatient rehab for alcoholism. Blood pressure this morning 136/70 with a heart rate in the 70s, 93% on room air. No lab data today.we will continue with the amiodarone 200 mg one tablet by mouth twice a day along with the metoprolol 20 5 in the morning and 12-1/2 in the evening. Objective - Vital Signs Vital signs: Vital Signs Temp 98.1 F 08/06/20 08:00 Pulse 74 08/06/20 08:00 Resp 18 08/06/20 08:00 BP 136/77 08/06/20 08:00 Pulse Ox 93 L 08/06/20 08:00 Intake & Output 08/05/20 08/06/20 08/06/20 18:59 06:59 18:59 Intake Total 690 350 Output Total 1375 1600 600 Balance -468 -0050 -600 Weight 134.2 kg Intake: Intake, IV Titration 100 Amount Doxycycline 100 mg In 100 Sodium Chloride 0.9% 100 ml @ 100 mls/hr IVPB Q12HR [facility] Rx#:[id number] Oral 690 250 Output: Urine 1375 1600 600 Uretheral (Mcbride) 600 Other: Voiding Method Indwelling Catheter Indwelling Catheter Indwelling Catheter - Exam PHYSICAL EXAMINATION CONSTITUTIONAL: No apparent distress. HEENT: Head is normocephalic. Pupils are equal, round. Sclerae anicteric. Mucous membranes of the mouth are moist. No JVD. No carotid bruit. CHEST EXAMINATION: Lungs are clear to auscultation. No chest wall tenderness is noted on palpation or with deep breathing. HEART EXAMINATION: Irregular rate and rhythm. S1, S2 heard. No murmurs, gallops or rub. ABDOMEN: Soft, nontender. Positive bowel sounds. EXTREMITIES: 2+ peripheral pulses, 2+ bilateral lower extremity pitting edema and no calf tenderness. NEUROLOGIC EXAMINATION: Patient is awake, alert and oriented x3. - Labs CBC & Chem 7: 08/03/20 05:23 08/05/20 08:06 Labs: Abnormal Lab Results - Last 24 Hours (Table) 08/05/20 08/05/20 08/05/20 Range/Units 11:42 16:41 20:29 POC Glucose (mg/dL) 172 H 184 H 155 H (75-99) mg/dL 08/06/20 Range/Units 05:59 POC Glucose (mg/dL) 172 H (75-99) mg/dL Assessment and Plan Plan: ASSESSMENT and plan #1 Paroxysmal atrial fibrillation with rapid ventricular rate #2 Acute on chronic diastolic heart failure #3 Hypomagnesemia likely secondary to EtOH #4 Persistent diarrhea #5 Hypertension #6 Daily alcohol intake #7 typical atrial flutter Plan From cardiology's perspective, patient may be discharged to home for rehab once cleared by primary. We will continue current dose of amiodarone and beta darwin. Follow-up appointment in the office post discharge. DNP note has been reviewed, I agree with a documented findings and plan of care. Patient was seen and examined.
[2020-08-06 11:35] LABS: Glucose,Whole Blood 161 mg/dL (75-99)
--- NOTE | 2020-08-06 12:01 | P.PN ---
Subjective Progress Note Date: 08/06/20 Principal diagnosis: Chronic pancreatitis, acute alcohol intoxication This is a 70-year-old white male with a history of heavy alcohol abuse who was readmitted with alcohol intoxication and inability to care for himself. Apparently the patient was notedat his home to be covered in feces and intoxicated. He was brought to the emergency department. He has had prior CT of the abdomen done at [facility] showing chronic pancreatitis with pseudocyst that was enlarging. He has had no outpatient follow-up with the GI services. He has was seen and evaluated at the bedside. He states he is feeling weak today. States he didn't sleep well last night. He is denying any abdominal pain nausea, or vomiting at this time. He has a known history of chronic alcohol pancreatitis. He was started on pancreatic enzyme therapy and has reported an improvement in his diarrhea. Objective - Vital Signs Vital signs: Vital Signs Temp 98.1 F 08/06/20 08:00 Pulse 74 08/06/20 08:00 Resp 18 08/06/20 08:00 BP 136/77 08/06/20 08:00 Pulse Ox 93 L 08/06/20 08:00 Intake & Output 08/05/20 08/06/20 08/06/20 18:59 06:59 18:59 Intake Total 690 350 Output Total 1375 1600 600 Balance -685 -1250 -600 Weight 134.2 kg Intake: Intake, IV Titration 100 Amount Doxycycline 100 mg In 100 Sodium Chloride 0.9% 100 ml @ 100 mls/hr IVPB Q12HR [facility] Rx#:[id number] Oral 690 250 Output: Urine 1375 1600 600 Uretheral (Mcbride) 600 Other: Voiding Method Indwelling Catheter Indwelling Catheter Indwelling Catheter - Exam General appearance: The patient is alert, oriented, in no acute distress. Morbidly obese. HET: Head is normocephalic and atraumatic. Conjunctiva pink. Sclera anicteric. Neck: Supple without lymphadenopathy. Abdomen: Soft, epigastric and LUQ tenderness , nondistended with bowel sounds. No guarding or rigidity. Extremities: Normal skin color and turgor. No pedal edema Neurological: No focal deficits. Alert and oriented 3. - Labs CBC & Chem 7: 08/03/20 05:23 08/05/20 08:06 Labs: Abnormal Lab Results - Last 24 Hours (Table) 08/05/20 08/05/20 08/06/20 Range/Units 16:41 20:29 05:59 POC Glucose (mg/dL) 184 H 155 H 172 H (75-99) mg/dL 08/06/20 Range/Units 11:33 POC Glucose (mg/dL) 161 H (75-99) mg/dL Assessment and Plan (1) Acute on chronic pancreatitis Narrative/Plan: Left upper quadrant abdominal pain, probably related to mild exacerbation of chronic pancreatitis. He pays initially was minimally elevated, now within normal range 104. The patient with a history of heavy alcohol abuse. He had a recent hospitalization about 3 weeks ago for flareup of pancreatitis Current Visit: Yes Status: Acute Code(s): K85.90 - ACUTE PANCREATITIS WITHOUT NECROSIS OR INFECTION, UNSP; K86.1 - OTHER CHRONIC PANCREATITIS SNOMED Code(s): 387856251 (2) Alcohol intoxication Narrative/Plan: resolved Current Visit: Yes Status: Acute Code(s): F10.929 - ALCOHOL USE, UNSPECIFIED WITH INTOXICATION, UNSPECIFIED SNOMED Code(s): 89188159 (3) Elevated transaminase level Narrative/Plan: Mild elevation of serum transaminases secondary to chronic liver disease Current Visit: Yes Status: Acute Code(s): R74.01 - SNOMED Code(s): 059942374 (4) Atrial fibrillation Narrative/Plan: on Xarelto Current Visit: No Status: Acute Code(s): I48.91 - UNSPECIFIED ATRIAL FIBRILLATION SNOMED Code(s): 40878848 (5) Pancreatic pseudocyst/cyst Narrative/Plan: Patient has a history of pancreatic pseudocyst seen on imaging from [facility]. Requesting most recent CT/MRI results to be faxed over. Does with patient the importance of follow-up with gastroenterology to schedule outpatient EUS. Discussed that this could be done likely through the [place] and [facility]. Patient verbalized understanding. Current Visit: Yes Status: Acute Code(s): K86.2 - CYST OF PANCREAS; K86.3 - PSEUDOCYST OF PANCREAS SNOMED Code(s): 692797151 Plan: 1. Supportive care 2. Stool studies for C. diff toxin negative 3. Advance diet as tolerated 4. Continue pancreatic enzyme replacement 4 tabs TID with meals 5. Abstinence from alcohol 6. Watch for alcohol withdrawal and DTs 7. Social work consult for possible admission for inpatient rehab for alcoholism 8. We'll sign off at this time. Patient will need an outpatient EUS, this is been scheduled with gastroenterology office. The impression and plan of care has been dictated as directed. I performed a history and examination of this patient, discussed the same with the dictator. I agree with the dictator's note ,documented as a scribe. Any additional findings or plans will be noted.
[2020-08-06] MEDS: RIVAROXABAN 20 MG TAB PO SCH (14:10)
[2020-08-06 16:52] LABS: Glucose,Whole Blood 169 mg/dL (75-99)
--- NOTE | 2020-08-06 18:44 | P.PN ---
Subjective This is a pleasant 70 years old male with multiple medical problems including multiple pancreatic cysts, stage II buttock ulcer and pressure ulcer, bilateral leg swelling, hypothyroidism with constipation, recent pneumonia, recent Cellulitis, generalized weakness and falls, alcohol abuse and alcohol withdrawal, COPD, atrial fibrillation on Xarelto, chronic hepatitis C and hypertension As per documentation [facility] him where he was found home covered with his own feces and intoxicated, in the hospital he developed A. fib and RVR. On the presentation patient had abdominal pain and diarrhea and he attributed it to not getting [place] as he ran out of it for 2 days prior to hospitalization, his chronic abdominal pain become more severe. Also he started drinking alcohol because of family member . He was transferred to our hospital for tachycardia and tremors as per documentation Patient is telling me that last time we send him to rehab they can come out and he does not know why as he claims. At home he was drinking alcohol about half a gallon of recurrent or less and smokes about 1 pack per day, patient is counseled to quit and he agrees but he declines nicotine patch. He denies illicit drugs. He states he he called the ambulance by himself because he was having same pancreatic pain but more severe and his been short of breath with coughing and some white to yellow phlegm. No chest pain Currently patient still on Cardizem drip [facility] looks stable, his tachycardic with heart rate 118-122. He saturating 96% on 3 L oxygen via nasal cannula. CBC is unremarkable except for mild anemia with hemoglobin 12.3. Lymphocytes his low 0.8, INR is normal 1.1, electrolytes and creatinine are unremarkable. Magnesium is low at 1.5, troponin is elevated at 0.038. ALT is normal but AST slightly up at 64, total bilirubin is normal at 0.9. Chest x-ray: No acute cardiopulmonary process. Patient magnesium is been replaced and placed for cartilage team on Lasix 40 mg twice daily. MAPS was checked on 08/03 and patient is on [place] 5-325 pills for 30 days 08/04/2020 Patient today's awake but he failed generally weak and tired. His breathing is better than yesterday, no significant coughing. No chest pain. He still has s ome epigastric abdominal pain at 810 but that does not look bothering him a lot. i reviewed, his blood pressure is 84/47, however patient is asymptomatic. We will keep monitoring his blood pressure. He saturating 93% on 3 L oxygen via nasal cannula. BMP and magnesium are unremarkable and sugar is controlled. Levothyroxine was increased today by cardiology team from 25 up to 50 g and agree with that. And GI team are following the patient closely. Remains on Xarelto and Cardizem. He's also on Solu-Medrol and doxycycline and Lasix IV 40 mg twice daily for his COPD and A. fib with RVR And the fluid overload i discussed the case with physical therapy team, possibly patient will need ECF for rehab 08/05/2020 Patient still feels generally tired and fatigued, mostly due to medical condit ions including hypothyroidism. Levothyroxine was increased yesterday to 50 g. Patient informed and he agrees. He still have some abdominal pain, pancreatic enzymes were added for him and as well as spironolactone. I discussed the case with GI team and they recommended EUS which can be done as an outpatient. Patient [facility] [place] [facility] the [facility] system. Also he wants to switch his VA doctor Ruthie because he always have difficulty seen him or have an appointment with him which happen even last admission when I tried to call him and make appointment and didn't happen. He preferred to go to surgery now clinic or to the and upper clinic, discussed the case with telehealth case manager and there were trying to help us. Vitals stable. BMP and sugar are stable. Metoprolol dose was increased today to 37.5 mg daily. He remains on Xarelto, doxycycline and Solu-Medrol 40 mg and Lasix 40 mg IV is a switch to by mouth daily 08/06/20 PT was feeling tired today he is able to eat breathig is improved and can switch soluModrul to prednisone today his CIWA was 8-12 this morning , he was started on valium taper iv lasix is switched to po lasix by cardiology team pt agrees to f/u with GI as out pt to arrange for EUS discussed with bilingual social worker , it looks like pt is hard to get into rehab because of his [facility] insurance which expected to denies his rehab admission and he need to apply to medicaid to be able to go to rehab Objective - Vital Signs Vital signs: Vital Signs Temp 97.8 F 08/06/20 16:21 Pulse 81 08/06/20 16:21 Resp 17 08/06/20 16:21 BP 124/74 08/06/20 16:21 Pulse Ox 94 L 08/06/20 12:00 Intake & Output 08/05/20 08/06/20 08/06/20 18:59 06:59 18:59 Intake Total 690 350 956 Output Total 1375 1600 2500 Balance -550 -8998 -3411 Weight 134.2 kg Intake: Intake, IV Titration 100 Amount Doxycycline 100 mg In 100 Sodium Chloride 0.9% 100 ml @ 100 mls/hr IVPB Q12HR [facility] Rx#:[id number] Oral 690 250 956 Output: Urine 1375 1600 2500 Uretheral (Mcbride) 600 Other: Voiding Method Indwelling Catheter Indwelling Catheter Indwelling Catheter - Labs CBC & Chem 7: 08/03/20 05:23 08/05/20 08:06 Labs: Abnormal Lab Results - Last 24 Hours (Table) 08/05/20 08/06/20 08/06/20 Range/Units 20:29 05:59 11:33 POC Glucose (mg/dL) 155 H 172 H 161 H (75-99) mg/dL 08/06/20 Range/Units 16:50 POC Glucose (mg/dL) 169 H (75-99) mg/dL
[2020-08-06] MEDS: METOPROLOL TARTRATE 12.5 MG TAB PO SCH (20:13)
[2020-08-06 20:57] LABS: Glucose,Whole Blood 177 mg/dL (75-99)
[2020-08-07 05:55] LABS: Glucose,Whole Blood 125 mg/dL (75-99)
[2020-08-07] MEDS: INSULIN ASPART (NovoLOG) 100 UNIT/ML VIAL SQ SCH ×4 (06:41→20:33)
[2020-08-07] MEDS: LEVOTHYROXINE 50 MCG TAB PO SCH (06:42)
[2020-08-07] MEDS: LIPASE 5,000/PROTEASE 17,000/AMYLASE 24,000 PO SCH ×3 (06:42→16:52)
[2020-08-07] MEDS: PANTOPRAZOLE 40 MG TABLET PO SCH (06:42)
[2020-08-07] MEDS: THIAMINE 100 MG TAB PO SCH ×2 (06:42→16:55)
[2020-08-07] MEDS: HYDROcodone/APAP 5-325MG 1 EACH TAB PO PRN ×2 (06:44→16:52)
[2020-08-07] MEDS ORDERED: diazePAM 2 MG TAB PO SCH (09:00)
[2020-08-07] MEDS: LORazepam 2 MG/ML INJ IV PRN ×3 (09:05→18:50)
[2020-08-07] MEDS: AMIODARONE 200 MG TAB PO SCH ×2 (09:06→20:33)
[2020-08-07] MEDS: METOPROLOL TARTRATE 25 MG TAB PO SCH (09:06)
[2020-08-07] MEDS: FUROSEMIDE 40 MG TAB PO SCH (09:06)
[2020-08-07] MEDS: SPIRONOLACTONE 25 MG TAB PO SCH (09:07)
[2020-08-07] MEDS: POTASSIUM CHLORIDE ER 10 MEQ TAB.ER.PRT PO SCH (09:07)
[2020-08-07] MEDS: predniSONE 20 MG TAB PO SCH (09:07)
[2020-08-07] MEDS: DOXYCYCLINE 100 MG in SODIUM CHLORIDE 0.9% 100 ML IVPB SCH ×2 (09:44→20:34)
--- NOTE | 2020-08-07 11:02 | P.PN ---
Subjective Progress Note Date: 08/07/20 This is a pleasant 70-year-old occasions male past medical history significant for paroxysmal atrial fibrillation on long-term anticoagulation, hypertension and daily alcohol abuse. He used to follow in the office with Dr. Barakat but has not been back since 2017. We have been asked to see in consultation for atrial fibrillation with rapid ventricular rate. He states for the previous one to 2 weeks he's been feeling increasingly weak with intermittent episodes of shortness of breath and epigastric/abdominal pain. He doesn't recall the exact events of what happened at home he just remembers he was on the floor and could not get up. He was found on the floor covered in feces and brought to the hospital for further evaluation. Patient continues to be on IV Lasix, he was seen and examined this morning, no further episodes of loose stools, continues to have shortness of breath. Continues at this time to be in atrial flutter. Echo remains pending. We will continue with the IV Lasix for 24 hours, add Aldactone to the medication regime. His blood pressure today 108/70 with a heart rate in the 80s, 94% on 3 L of oxygen. Sodium 134, potassium 3.9, BUN 12, creatinine 0.7. 08/05/2020 Patient was seen and examined this morning, overall doing better. Rate control much improved. We will adjust his metoprolol dose to 50 in the morning and 20 5 in the evening.blood pressure 117/70 with a heart rate in the 80s, 96% on 3 L of oxygen.sodium 132, potassium 3.6, BUN 17, creatinine 0.8. 08/06/2020 Patient was seen and examined this morning, overall doing much better. Social work is currently working on possible inpatient rehab for alcoholism. Blood pressure this morning 136/70 with a heart rate in the 70s, 93% on room air. No lab data today.we will continue with the amiodarone 200 mg one tablet by mouth twice a day along with the metoprolol 20 5 in the morning and 12-1/2 in the evening. 08-07-20 Patient was seen and examined this morning, hemodynamically stable, blood pre ssure 124/80 with a heart rate in the 70s, 98% on 2 L of oxygen. No lab data today. Social work is working on possible placement to rehab. Objective - Vital Signs Vital signs: Vital Signs Temp 98 F 08/06/20 20:00 Pulse 77 08/07/20 04:00 Resp 22 08/07/20 04:00 BP 124/88 08/07/20 04:00 Pulse Ox 98 08/07/20 04:00 Intake & Output 08/06/20 08/07/20 08/07/20 18:59 06:59 18:59 Intake Total 956 120 Output Total 2500 500 Balance -1544 -500 120 Weight 134.2 kg Intake: Oral 956 120 Output: Urine 2500 500 Uretheral (Mcbride) 600 Other: Voiding Method Indwelling Catheter Urinal - Exam PHYSICAL EXAMINATION CONSTITUTIONAL: No apparent distress. HEENT: Head is normocephalic. Pupils are equal, round. Sclerae anicteric. Mucous membranes of the mouth are moist. No JVD. No carotid bruit. CHEST EXAMINATION: Lungs are clear to auscultation. No chest wall tenderness is noted on palpation or with deep breathing. HEART EXAMINATION: Irregular rate and rhythm. S1, S2 heard. No murmurs, gallops or rub. ABDOMEN: Soft, nontender. Positive bowel sounds. EXTREMITIES: 2+ peripheral pulses, 2+ bilateral lower extremity pitting edema and no calf tenderness. NEUROLOGIC EXAMINATION: Patient is awake, alert and oriented x3. - Labs CBC & Chem 7: 08/03/20 05:23 08/05/20 08:06 Labs: Abnormal Lab Results - Last 24 Hours (Table) 08/06/20 08/06/20 08/06/20 Range/Units 11:33 16:50 20:51 POC Glucose (mg/dL) 161 H 169 H 177 H (75-99) mg/dL 08/07/20 Range/Units 05:50 POC Glucose (mg/dL) 125 H (75-99) mg/dL Assessment and Plan Plan: ASSESSMENT and plan #1 Paroxysmal atrial fibrillation with rapid ventricular rate #2 Acute on chronic diastolic heart failure #3 Hypomagnesemia likely secondary to EtOH #4 Persistent diarrhea #5 Hypertension #6 Daily alcohol intake #7 typical atrial flutter Plan From cardiology's perspective, patient may be discharged to home or rehab once cleared by primary. We will follow patient along with you now on an as-needed basis only, please don't hesitate to call if you have any questions. DNP note has been reviewed, I agree with a documented findings and plan of care. Patient was seen and examined.
[2020-08-07 12:07] LABS: Glucose,Whole Blood 131 mg/dL (75-99)
[2020-08-07 16:44] LABS: Glucose,Whole Blood 157 mg/dL (75-99)
[2020-08-07] MEDS: RIVAROXABAN 20 MG TAB PO SCH (16:55)
[2020-08-07 20:24] LABS: Glucose,Whole Blood 135 mg/dL (75-99)
[2020-08-07] MEDS: METOPROLOL TARTRATE 12.5 MG TAB PO SCH (20:33)
[2020-08-08] MEDS: HYDROcodone/APAP 5-325MG 1 EACH TAB PO PRN ×2 (01:35→10:21)
[2020-08-08 06:39] LABS: Glucose,Whole Blood 144 mg/dL (75-99)
[2020-08-08] MEDS: LIPASE 5,000/PROTEASE 17,000/AMYLASE 24,000 PO SCH ×2 (06:48→12:37)
[2020-08-08] MEDS: LEVOTHYROXINE 50 MCG TAB PO SCH (06:48)
[2020-08-08] MEDS: PANTOPRAZOLE 40 MG TABLET PO SCH (06:49)
[2020-08-08] MEDS: LORazepam 2 MG/ML INJ IV PRN (06:49)
[2020-08-08] MEDS: THIAMINE 100 MG TAB PO SCH (06:49)
[2020-08-08] MEDS: INSULIN ASPART (NovoLOG) 100 UNIT/ML VIAL SQ SCH ×2 (06:49→12:24)
[2020-08-08 07:16] VITALS: BMI 36.9
[2020-08-08] MEDS: DOXYCYCLINE 100 MG in SODIUM CHLORIDE 0.9% 100 ML IVPB SCH (08:22)
[2020-08-08] MEDS: POTASSIUM CHLORIDE ER 10 MEQ TAB.ER.PRT PO SCH (08:23)
[2020-08-08] MEDS: METOPROLOL TARTRATE 25 MG TAB PO SCH (08:23)
[2020-08-08] MEDS: FUROSEMIDE 40 MG TAB PO SCH (08:23)
[2020-08-08] MEDS: AMIODARONE 200 MG TAB PO SCH (08:23)
[2020-08-08] MEDS: predniSONE 20 MG TAB PO SCH (08:23)
[2020-08-08] MEDS: SPIRONOLACTONE 25 MG TAB PO SCH (08:23)
[2020-08-08 08:38] VITALS: RESP 18; TEMP 98.5
--- NOTE | 2020-08-08 10:47 | P.PN ---
Subjective This is a pleasant 70 years old male with multiple medical problems including multiple pancreatic cysts, stage II buttock ulcer and pressure ulcer, bilateral leg swelling, hypothyroidism with constipation, recent pneumonia, recent Cellulitis, generalized weakness and falls, alcohol abuse and alcohol withdrawal, COPD, atrial fibrillation on Xarelto, chronic hepatitis C and hypertension As per documentation He was transferred from [facility] for alcohol intoxication and inability to care for him where he was found home covered with his own feces and intoxicated, in the hospital he developed A. fib and RVR. On the presentation patient had abdominal pain and diarrhea and he attributed it to not getting [place] as he ran out of it for 2 days prior to hospitalization, his chronic abdominal pain become more severe. Also he started drinking alcohol because of family member . He was transferred to our hospital for tachycardia and tremors as per documentation Patient is telling me that last time we send him to rehab they can come out and he does not know why as he claims. At home he was drinking alcohol about half a gallon of recurrent or less and smokes about 1 pack per day, patient is counseled to quit and he agrees but he declines nicotine patch. He denies illicit drugs. He states he he called the ambulance by himself because he was having same pancreatic pain but more severe and his been short of breath with coughing and some white to yellow phlegm. No chest pain Currently patient still on Cardizem drip [facility] looks stable, his tachycardic with heart rate 118-122. He saturating 96% on 3 L oxygen via nasal cannula. CBC is unremarkable except for mild anemia with hemoglobin 12.3. Lymphocytes his low 0.8, INR is normal 1.1, electrolytes and creatinine are unremarkable. Magnesium is low at 1.5, troponin is elevated at 0.038. ALT is normal but AST slightly up at 64, total bilirubin is normal at 0.9. Chest x-ray: No acute cardiopulmonary process. Patient magnesium is been replaced and placed for cartilage team on Lasix 40 mg twice daily. MAPS was checked on 08/03 and patient is on [place] 5-325 pills for 30 days 08/04/2020 Patient today's awake but he failed generally weak and tired. His breathing is better than yesterday, no significant coughing. No chest pain. He still has s ome epigastric abdominal pain at 810 but that does not look bothering him a lot. i reviewed, his blood pressure is 84/47, however patient is asymptomatic. We will keep monitoring his blood pressure. He saturating 93% on 3 L oxygen via nasal cannula. BMP and magnesium are unremarkable and sugar is controlled. Levothyroxine was increased today by cardiology team from 25 up to 50 g and agree with that. And GI team are following the patient closely. Remains on Xarelto and Cardizem. He's also on Solu-Medrol and doxycycline and Lasix IV 40 mg twice daily for his COPD and A. fib with RVR And the fluid overload i discussed the case with physical therapy team, possibly patient will need ECF for rehab 08/05/2020 Patient still feels generally tired and fatigued, mostly due to medical condit ions including hypothyroidism. Levothyroxine was increased yesterday to 50 g. Patient informed and he agrees. He still have some abdominal pain, pancreatic enzymes were added for him and as well as spironolactone. I discussed the case with GI team and they recommended EUS which can be done as an outpatient. Patient prefers to follow [facility] with [facility] at [place] as part of the [facility] system. Also he wants to switch his VA doctor Ruthie because he always have difficulty seen him or have an appointment with him which happen even last admission when I tried to call him and make appointment and didn't happen. He preferred to go to surgery now clinic or to the and upper clinic, discussed the case with disease case manager and there were trying to help us. Vitals stable. BMP and sugar are stable. Metoprolol dose was increased today to 37.5 mg daily. He remains on Xarelto, doxycycline and Solu-Medrol 40 mg and Lasix 40 mg IV is a switch to by mouth daily 08/06/20 PT was feeling tired today he is able to eat breathig is improved and can switch soluModrul to prednisone today his CIWA was 8-12 this morning , he was started on valium taper iv lasix is switched to po lasix by cardiology team pt agrees to f/u with GI as out pt to arrange for EUS discussed with geriatric social work professor , it looks like pt is hard to get into rehab because of his [facility] insurance which expected to denies his rehab admission and he need to apply to medicaid to be able to go to rehab 08/07/2020 This is a pleasant 70 years old male with multiple medical problems he was admitted for alcohol withdrawal, acute on chronic pancreatitis and COPD. Patient is been treated with several medication and cardiology is following him for his A. fib and RVR which is now rate controlled. He is on Xarelto. Also his doing well regarding his COPD and currently on doxycycline and prednisone 40 mg daily. Also this epigastric pain for his pancreatitis is very controlled and patient is tolerating diet well. GI team evaluated the patient and they recommended outpatient follow-up and appointment as he will need endoscopic ultrasound to assess for his pancreatic cyst, patient informed and he agrees. Pancreatic enzyme has been added However patient still undergoing alcohol withdrawal without ron delirium tremens, his CIWA protocol is 8-11 this morning and he still needs frequent doses of Ativan as well as Valium, which make patient still needs hospitalization as he has only [facility] insurance and he cannot go to [facility] for rehab as recommended by physical therapy, patient needs to apply for Medicaid so he can go for rehab as per my discussion with geriatric social work professor. Objective - Vital Signs Vital signs: Vital Signs Temp 97.8 F 08/07/20 11:30 Pulse 78 08/07/20 11:30 Resp 18 08/07/20 11:30 BP 140/75 08/07/20 11:30 Pulse Ox 96 08/07/20 11:30 Intake & Output 08/06/20 08/07/20 08/07/20 18:59 06:59 18:59 Intake Total 956 240 Output Total 2500 500 550 Balance -1544 -500 -310 Weight 134.2 kg Intake: Oral 956 240 Output: Urine 2500 500 550 Uretheral (Mcbride) 600 Other: Voiding Method Indwelling Catheter Urinal Urinal - Exam -GENERAL: The patient is alert and oriented x3, not in any acute distress. Obese HEENT: Pupils are round and equally reacting to light. EOMI. No scleral icterus. No conjunctival pallor. Normocephalic, atraumatic. No pharyngeal erythema. No thyromegaly. CARDIOVASCULAR: S1 and S2 present. No murmurs, rubs, or gallops. -PULMONARY: Chest is clear to auscultation, bilateral scattered wheezing or crackles. -ABDOMEN: Soft, epigastric tenderness with no rebound tenderness, nondistended, normoactive bowel sounds. No palpable organomegaly. MUSCULOSKELETAL: No joint swelling or deformity. EXTREMITIES: No cyanosis, clubbing, or pedal edema. NEUROLOGICAL: Gross neurological examination did not reveal any focal deficits. SKIN: No rashes. No petechiae - Labs CBC & Chem 7: 08/03/20 05:23 08/05/20 08:06 Labs: Abnormal Lab Results - Last 24 Hours (Table) 08/06/20 08/07/20 08/07/20 Range/Units 20:51 05:50 12:05 POC Glucose (mg/dL) 177 H 125 H 131 H (75-99) mg/dL 08/07/20 Range/Units 16:43 POC Glucose (mg/dL) 157 H (75-99) mg/dL Assessment and Plan Assessment: -Acute COPD exacerbation -Acute on chronic pancreatitis, already treated and feels better but still have this chronic abdominal pain -Elevated troponin, in view of elevated heart rate from A. fib and RVR -Hypothyroidism with constipation and tiredness, with high TSH more than 14., increase his levothyroxine from 25 up to 50 g daily -Alcohol intoxication on the presentation with alcohol withdrawal - multiple pancreatic cyst, last time GI recommended outpatient MRI or endoscopic ultrasound -Stage 1-2 buttock ulcer, secondary to pressure ulcer, continue with local treatment, improved -History of leg cellulitis, and pneumonia -prolonged QTC 589 -Generalized weakness and falls. Referred for ECF for subacute rehab last time -history of alcohol abuse was recently treated for alcohol withdrawals. -atrial fibrillation, rate uncontrolled , on xarelto -chronic lymphopenia -History of chronic hep C -Hypertension -Chronic Abdominal pain with tenderness and nausea. CT of the abdomen with IV showed multiple pancreatic cyst, GI recommended outpatient MRI or endoscopic ultrasound Plan: This is a pleasant 70 years old male who presents with A. fiband alcohol intoxication and withdrawal. Continue with CIWA protocol and thiamine Continue with amiodarone and metoprolol,Resume Xarelto . Continue with steroids and breathing treatment and oxygen as needed. And antibiotic. Consult with GI and cardiology team We will check TSH and lipase consult cardiology and GI team Labs and medication were reviewed.. Continue same treatment. Continue with symptomatic treatment. Resume home medication. Monitor lytes and vitals. DVT and GI prophylaxis. Further recommendationsas per clinical course of the patient DVT prophylaxis: Xarelto GI Prophylaxis: Pepcid PT/OT: Pending Prognosis is guarded
[2020-08-08 11:48] LABS: Glucose,Whole Blood 125 mg/dL (75-99)
--- NOTE | 2020-08-08 13:06 | P.DS ---
Providers Date of admission: 08/03/20 05:28 Attending physician: Camryn Jimenez Consults: 08/03/20 05:25 Consult Physician Urgent Consulting Provider: [facility] Consult Reason/Comments: flutter with RVR Do you want consulting provider notified?: Yes Primary care physician: [facility] Course: Final diagnosis COPD acute exacerbation Acute on chronic pancreatitis Chronic abdominal pain Elevated troponin secondary to heart rate A. fib with rapid ventricular rate Hypothyroidism Alcohol intoxication Multiple pancreatic cysts Stage I to 2 gluteal ulcer History [place] colitis Prolonged QTC next in general this weakness History of EtOH History atrial fibrillation Chronic lymphopenia History of chronic hepatitis C Hypertension next in chronic abdominal pain Discharge disposition The patient be discharged in a stable condition guarded prognosis total time taken 35 minutes History of present illness this 76-year-old gentleman with a past medical history multiple medical problems was admitted with the multiple medical issues as mentioned earlier patient had treated symptomatically improved significantly the patient was transferred to [facility] for prevention treatment On exam vitals are stable cardio S1 and S2 normal abdomen soft nervous system no focal deficit Recommend close follow-up with the [place] clinic Receive the medication or consideration. Sheet for list of Medications Patient Condition at Discharge: Serious Plan - Discharge Summary Discharge Rx Participant: No New Discharge Prescriptions: New Spironolactone [Aldactone] 25 mg PO DAILY tab Metoprolol Tartrate [Lopressor] 12.5 mg PO DAILY@1999 tab Metoprolol Tartrate [Lopressor] 25 mg PO DAILY tab Levothyroxine Sodium [Synthroid] 50 mcg PO AC-BRKFST tab diazePAM [Valium] 2 mg PO DIRECTED 3 Days #3 tab Doxycycline [Vibramycin] 100 mg PO BID 3 Days #6 capsule Lipase/Protease/Amylase [Landy Garcia 5,000 Unit Capsule] 4 each PO AC-TID capsule. predniSONE 10 mg PO DIRECTED #30 tab Continue Amiodarone HCl [Pacerone] 200 mg PO DAILY Rivaroxaban [Xarelto] 20 mg PO AC-SUPPER Omeprazole [PriLOSEC] 20 mg PO BID Thiamine [Vitamin B-1] 100 mg PO DAILY #30 tab Carboxymethylcellulose Sodium [Refresh Tears] 1 drop BOTH EYES BID Potassium Chloride [Klor-Con 20] 10 meq PO DAILY #0 Furosemide [Lasix] 40 mg PO DAILY #0 Albuterol Inhaler [Ventolin Hfa Inhaler] 2 puff INHALATION RT-QID PRN #1 inhaler PRN Reason: Shortness Of Breath Or Wheezing Fluticasone/Salmeterol [Airduo Respiclick 232-14 Mcg] 1 puff INHALATION RT- BID Ondansetron [Zofran] 4 mg PO Q8HR PRN 5 Days #15 tab PRN Reason: Nausea And Vomiting Loperamide [Imodium] 2 mg PO QID PRN #15 cap PRN Reason: Diarrhea HYDROcodone/APAP 5-325MG [[place] 5-325] 1 tab PO Q6H PRN #6 tab PRN Reason: Pain Discontinued Levothyroxine Sodium [Synthroid] 25 mcg PO AC-BRKFST Gabapentin [Neurontin] 800 mg PO BID Metoprolol Succinate (ER) [Toprol XL] 50 mg PO DAILY #0 Discharge Medication List Amiodarone HCl [Pacerone] 200 mg PO DAILY 08/03/18 [History] Rivaroxaban [Xarelto] 20 mg PO AC-SUPPER 08/03/18 [History] Omeprazole [PriLOSEC] 20 mg PO BID 11/27/18 [History] Thiamine [Vitamin B-1] 100 mg PO DAILY #30 tab 11/28/18 [Rx] Carboxymethylcellulose Sodium [Refresh Tears] 1 drop BOTH EYES BID 06/29/20 [History] Albuterol Inhaler [Ventolin Hfa Inhaler] 2 puff INHALATION RT-QID PRN #1 inhaler 07/04/20 [Rx] Furosemide [Lasix] 40 mg PO DAILY #0 07/04/20 [Rx] Potassium Chloride [Klor-Con 20] 10 meq PO DAILY #0 07/04/20 [Rx] Fluticasone/Salmeterol [Airduo Respiclick 232-14 Mcg] 1 puff INHALATION RT-BID 07/07/20 [History] Loperamide [Imodium] 2 mg PO QID PRN #15 cap 07/14/20 [Rx] Ondansetron [Zofran] 4 mg PO Q8HR PRN 5 Days #15 tab 07/14/20 [Rx] Doxycycline [Vibramycin] 100 mg PO BID 3 Days #6 capsule 08/06/20 [Rx] HYDROcodone/APAP 5-325MG [[place] 5-325] 1 tab PO Q6H PRN #6 tab 10/21/20 [Rx] Levothyroxine Sodium [Synthroid] 50 mcg PO AC-BRKFST tab 08/06/20 [Rx] Lipase/Protease/Amylase [Zenpep Dr 5,000 Unit Capsule] 4 each PO AC-TID capsule. 08/06/20 [Rx] Metoprolol Tartrate [Lopressor] 12.5 mg PO DAILY@1999 tab 08/06/20 [Rx] Metoprolol Tartrate [Lopressor] 25 mg PO DAILY tab 08/06/20 [Rx] Spironolactone [Aldactone] 25 mg PO DAILY tab 08/06/20 [Rx] diazePAM [Valium] 2 mg PO DIRECTED 3 Days #3 tab 08/06/20 [Rx] predniSONE 10 mg PO DIRECTED #30 tab 08/08/20 [Rx] Follow up Appointment(s)/Referral(s): Anil Grier DO [Primary Care Provider] - 1-2 days Yan Mcdonough MD [STAFF PHYSICIAN] - 08/21/20 4:15 pm () Everett Romeo MD [STAFF PHYSICIAN] - 08/26/20 1:00 pm (NEEDS outpatient EUS scheduled (patient has [facility] insurance)) Activity/Diet/Wound Care/Special Instructions: Contact Office of Community Care with the [facility] to discuss changing PCPs - [phone] Ext [phone]
[2020-08-08 16:13] VITALS: BP 118/62; PULSE 82
[2020-08-08 16:57] LABS: Glucose,Whole Blood 193 mg/dL (75-99)
== END 2020-08-08 17:06 | DRG 308 ==
LOC: EC 04:51 → 3SCARD 05:28
PROVIDERS: ADMIT Hospitalist; ATTEND Hospitalist
DX: I48.0 Paroxysmal atrial fibrillation (principal); K85.90 Acute pancreatitis without necrosis or infection, unspecified; I50.33 Acute on chronic diastolic (congestive) heart failure; K86.1 Other chronic pancreatitis; F10.230 Alcohol dependence with withdrawal, uncomplicated; J44.1 Chronic obstructive pulmonary disease with (acute) exacerbation; K86.3 Pseudocyst of pancreas; I48.3 Typical atrial flutter; L89.302 Pressure ulcer of unspecified buttock, stage 2; K74.60 Unspecified cirrhosis of liver; I11.0 Hypertensive heart disease with heart failure; F10.220 Alcohol dependence with intoxication, uncomplicated; Z20.828 Contact with and (suspected) exposure to other viral communicable diseases; B18.2 Chronic viral hepatitis C; M19.90 Unspecified osteoarthritis, unspecified site; E03.9 Hypothyroidism, unspecified; H26.9 Unspecified cataract; F17.210 Nicotine dependence, cigarettes, uncomplicated; E66.9 Obesity, unspecified; G89.29 Other chronic pain; D64.9 Anemia, unspecified; D72.810 Lymphocytopenia; K59.00 Constipation, unspecified; R53.1 Weakness; E83.42 Hypomagnesemia; R77.8 Other specified abnormalities of plasma proteins; R19.7 Diarrhea, unspecified; Z68.37 Body mass index [BMI] 37.0-37.9, adult; Z79.890 Hormone replacement therapy; Z79.899 Other long term (current) drug therapy; Z79.01 Long term (current) use of anticoagulants; Z86.718 Personal history of other venous thrombosis and embolism; Z71.6 Tobacco abuse counseling; Z87.19 Personal history of other diseases of the digestive system; Z86.14 Personal history of Methicillin resistant Staphylococcus aureus infection; Z98.890 Other specified postprocedural states; Z87.828 Personal history of other (healed) physical injury and trauma; Z71.3 Dietary counseling and surveillance; Z87.01 Personal history of pneumonia (recurrent); Z86.19 Personal history of other infectious and parasitic diseases; Z82.49 Family history of ischemic heart disease and other diseases of the circulatory system; Z80.1 Family history of malignant neoplasm of trachea, bronchus and lung; Z80.0 Family history of malignant neoplasm of digestive organs
CPT/HCPCS: 36415; 71046; 80048; 80053; 83036; 83690; 83735; 83880; 84439; 84443; 84484; 85025; 85610; 85730; 87324; 87635; 93005; 93306; 96365; 96372; 99285